=== PATIENT | female | born 1950 | race Caucasian/White ===

== ENCOUNTER 2020-10-07 12:53 | Inpatient (IN) | payer MEDICARE, SELFPAY ==
[2020-10-07] VITALS (61 sets, daily range): BP systolic 69–134; BP diastolic 48–100; PULSE 44–122; RESP 14–18; TEMP 36.3; O2SAT 92–100; BMI 21.2
--- NOTE | 2020-10-07 12:57 | CT_ITS ---
WS: [id number] CT HEAD NONCONTRAST HISTORY: HEADACHE TECHNIQUE: Contiguous axial imaging performed through the brain in 2.5 mm imaging. Bone and soft tiss ue windows. Sagittal and coronal reformats reviewed. All CT scans at [facility] use at le ast one of these dose optimization techniques: automated exposure control; mA and/or kV adjustment pe r patient size (includes targeted exams where dose is matched to clinical indication); or iterative r econstruction. DLP: 1144.36 mGy.cm COMPARISON: None available. No acute intracranial hemorrhage, midline shift or mass effect. Moderate atrophy is symmetric. Mild chronic microvascular ischemic disease. No sulcal effacement or m idline shift. Quality of this examination is limited by positioning of the patient. Ventricles: Normal size with no hydrocephalus. Patient is intubated. Paranasal sinuses: As visualized are clear. Mastoid air cells: Well pneumatized. Calvarium and scalp: Skull is intact with no soft tissue edema or swelling. CT/CT head wo con* [id number] IMPRESSION: 1. Quality of this examination is limited by positioning of the patient. 2. No acute intracranial hemorrhage or edema. 3. Atrophy and mild chronic ischemic disease.
--- NOTE | 2020-10-07 12:57 | XRR_ITS ---
PROCEDURE INFORMATION: Exam: XR Chest Exam date and time: 10/07/2020 12:57 PM Age: 69 years old Clinical indication: Cough TECHNIQUE: Imaging protocol: XR of the chest. Views: 1 view. COMPARISON: CR Chest 1 [place] [id number] 06/14/2017 5:35 PM FINDINGS: Tubes, catheters and devices: Endotracheal tube is 27 mm above the princess. NG tube extends into the stomach. Lungs: Parenchymal densities are now seen in the right mid and lower lobe a representing a change since prior examination. These findings measure 43 mm x 33 mm and 52 mm x 41 mm respectively. The specific etiology of these findings is uncertain. A smaller density was present in the right lung on prior study. Chest CT examination is recommended to clarify this finding. The potential for a lung mass lesion is suggested. There is vascular congestion present in the left hilum. Pleural spaces: Unremarkable. No pleural effusion. No pneumothorax. Heart/Mediastinum: Unremarkable. No cardiomegaly. Bones/joints: There is lumbar spine osteopenia with kyphoplasty at multiple levels. These findings are stable since prior XR/XR chest 1V portable [id number] IMPRESSION: 1. Large right mid and lower lobe parenchymal densities possible lung mass. chest CT exam recommended 2. Left hilar vascular congestion is seen. 3. NG tube is in the stomach. 4. Endotracheal tube is above the princess. 5. Lumbar spine osteopenia and kyphoplasty at multiple levels
--- NOTE | 2020-10-07 12:58 | ECG_ITS ---
[facility] Test Date: 2020-10-07 Pat Name: Sue Edwards Department: Room: Gender: Female Cardio Clinician: : [id number] Requested By: Curry Thorne Order Number: [id number] Reading MD: WILL BALLESTEROS Measurements Intervals Edgar Rate: 104 P: 66 FL: 120 QRS: 95 QRSD: 123 T: -42 QT: 356 QTc: 470 Interpretive Statements SINUS TACHYCARDIA WITH OCCASIONAL SUPRAVENTRICULAR PREMATURE COMPLEXES BORDERLINE RIGHT AXIS DEVIATION [QRS AXIS > 90] POSSIBLE RIGHT VENTRICULAR CONDUCTION DELAY [RSR (QR) IN V1/V2] ABNORMAL QRS-T ANGLE [QRS-T AXIS DIFFERENCE > 60] Compared to ECG 06/14/2017 19:36:58 Sinus rhythm no longer present Electronically Signed On 10-07-2020 20:12:12 CDT by WILL BALLESTEROS [email or web address]
--- NOTE | 2020-10-07 12:59 | W.ED.GENADLT ---
HPI - General Adult General: Chief complaint: Altered Mental Status Stated complaint: RESP DISTRESS Time Seen by Provider: 10/07/20 12:57 History of Present Illness: HPI narrative: This patient is a 69-year-old female presents to the emergency department for unresponsiveness. EMS was called to the scene last known well time was 10 AM. Patient does have a history of COPD. went to the store and came back found the patient had agonal respirations. EMS was called to the scene patient had pulse ox in the low 80s. Patient unresponsive with pinpoint pupils and appeared to be leaning to the left. Patient was intubated by EMS in the field patient was given rapid sequence intubation medications. Breath sounds are now equal bilaterally. Patient does have a pulse ox of 99%. No other history known. Patient is a full code according to the patient's family. Patient does have a history of COPD as stated above and did lose a lower extremity due to cat scratch fever. Otherwise patient has unknown medications at home but does not have a history of any drug abuse. Will do medical evaluation treat as needed Associated symptoms: Deny chest pain, dyspnea, headache(s), nausea, rash, palpitations or vomiting Review of Systems General: Reports: ROS unobtainable due to endotracheal tube, ROS unobtainable due to medical condition and ROS unobtainable due to mental status Const: Denies: fever(s), chills, body aches or fatigue Eyes: Denies: change in vision or blurry vision ENMT: Denies: throat pain, hoarseness or mouth pain Card: Denies: chest pain, palpitations, irregular heart rhythm, edema, swelling of feet/ankles or lightheadedness Resp: Denies: dyspnea, productive cough, non-productive cough, wheezing or pain on inspiration GI: Denies: abdominal pain, nausea or vomiting : Denies: flank pain, difficulty voiding, dysuria, urinary frequency, urinary urgency or urinary hesitancy Musc: Denies: neck pain, back pain, extremity pain, extremity swelling, joint pain, joint swelling, joint redness, joint warmth or limited range of motion Skin/Breast: Denies: rash, pruritus, erythema or skin tenderness Neuro: Denies: headache(s), numbness in extremities or weakness in extremities Psych: Denies: anxiety or depression Physical Exam Const: COMMON NORMALS: no acute distress, average body habitus and no limitations EXAM LIMITATIONS: other limitations (Patient intubated in the field by EMS) GENERAL APPEARANCE: frail appearing NUTRITIONAL APPEARANCE: cachectic ORIENTATION/CONSCIOUSNESS: Yes Other orientation findings (Patient unresponsive) HENMT: COMMON NORMALS: normocephalic, atraumatic, hearing grossly normal bilaterally, external ears normal, EAC's normal, TM's normal bilaterally, Normal external nose present, Normal nasal mucous membranes and turbinates present, moist oral mucous membranes, oropharynx normal, dentition normal and gingiva normal HEAD & SCALP: normocephalic and atraumatic NOSE: Normal external nose present and Normal nasal mucous membranes and turbinates present EXTERNAL EAR: Yes external ears normal EXTERNAL AUDITORY CANAL: EAC's normal TYMPANIC MEMBRANE: TM's normal bilaterally Neck/C-Spine: COMMON NORMALS: full ROM, no lymphadenopathy, supple, no JVD, Thyroid normal and No carotid bruits THYROID: Thyroid normal Chest: COMMONS NORMALS: normal inspection of the chest, normal palpation of entire chest wall, normal inspection of the breasts and normal palpation of the breasts Breast/axilla inspection: Yes normal inspection of the breasts BREAST/AXILLA PALPATION: Yes normal palpation of the breasts Resp: COMMON NORMALS: normal respiratory effort, No retractions, No use of accessory muscles, clear to auscultation bilaterally and percussion normal AUSCULTATION: clear to auscultation bilaterally PERCUSSION: percussion normal Cardio: COMMON NORMALS: no JVD, regular rate, regular rhythm, S1 normal heart sound present, S2 normal heart sound present, No gallops present (Cardio), No clicks present (Cardio), No murmurs present (Cardio), No rub (Cardio) and Peripheral pulses 2+ throughout RATE: regular rate RHYTHM: regular rhythm HEART SOUNDS: S1 normal heart sound present and S2 normal heart sound present PERIPHERAL PULSES: Peripheral pulses 2+ throughout GI: COMMON NORMALS: Normal to inspection, nondistended, normoactive bowel sounds present, Soft to palpation, non-tender, No hepatosplenomegaly present, no masses and no bruits PALPATION: Yes Soft to palpation and Yes No hepatosplenomegaly present Back/Pelvis: COMMON NORMALS: thoracic and lumbar spine normal to inspection, no thoracic nor lumbar tenderness, thoraco-lumbar ROM normal and straight leg raise negative bilaterally Extremity: COMMON NORMALS: normal to inspection, full ROM, capillary refill normal, no joint enlargement, no clubbing, cyanosis or edema, no calf tenderness and no pedal edema Neuro: LOKI COMA SCALE: GCS not evaluated (Patient was given etomidate and VAC and intubated by EMS in the field unable to assess neurological status.) Course Reevaluation(s): Reevaluation #1: I did discuss at length with patient and family about findings. Patient is intubated. Patient does have a small pneumothorax on the right and multiple lung masses. History of COPD. History of smoking. CT of the brain negative for any acute findings. They state understanding patient be admitted to the ICU Time: 15:37 Consultations: Consultation #1: I did discuss at length with patient about patient with respiratory. They will adjust ventilator settings to decrease tidal volume PEEP and respiratory rate due to patient's pneumothorax. Time: 15:43 Consultation #2: I did discuss leg with Dr. Feng hospitalist who is accepted this patient for admission to the ICU. Time: 15:45 Consultation #3: Discussed at length with pulmonology Dr. Land he is agreed to be consulted on this patient. Time: 15:46 Additional Consultation(s): Discussed at length with Dr. Rousseau and [facility] cardiology he will consult on this patient. No heparin at this time Vital Signs: Vital signs: Vital Signs Pulse Rate 93 10/07/20 15:00 Respiratory Rate 16 10/07/20 15:39 Blood Pressure 99/64 10/07/20 15:00 Pulse Oximetry 98 10/07/20 15:00 MDM - General Adult MDM Narrative: Medical decision making narrative: This patient is a 69-year-old female presents to the emergency department for unresponsiveness. EMS was called to the scene last known well time was 10 AM. Patient does have a history of COPD. went to the store and came back found the patient had agonal respirations. EMS was called to the scene patient had pulse ox in the low 80s. Patient unresponsive with pinpoint pupils and appeared to be leaning to the left. Patient was intubated by EMS in the field patient was given rapid sequence intubation medications. Breath sounds are now equal bilaterally. Patient does have a pulse ox of 99%. No other history known. Patient is a full code according to the patient's family. Patient does have a history of COPD as stated above and did lose a lower extremity due to cat scratch fever. Otherwise patient has unknown medications at home but does not have a history of any drug abuse. I did discuss at length with patient and family about findings. Patient is intubated. Patient does have a small pneumothorax on the right and multiple lung masses. History of COPD. History of smoking. CT of the brain negative for any acute findings. They state understanding patient be admitted to the ICU I did discuss at length with patient about patient with respiratory. They will adjust ventilator settings to decrease tidal volume PEEP and respiratory rate due to patient's pneumothorax. I did discuss leg with Dr. Feng hospitalist who is accepted this patient for admission to the ICU. Discussed at length with pulmonology Dr. Land he is agreed to be consulted on this patient. Discussed at length with Dr. Rousseau and [facility] cardiology he will consult on this patient. No heparin at this time Lab Data: Labs: Lab Results 10/07/20 10/07/20 10/07/20 Range/Units 13:00 13:00 13:00 WBC 9.7 (4.0-10.0) 10^3/ uL RBC 5.15 (4.1-5.3) 10^6/u L Hgb 14.5 (11.5-15.3) g/dL Hct 49.6 H (37.0-47.0) % MCV 96.3 (81-99) fL MCH 28.2 (28.0-34.0) pg MCHC 29.2 L (30.0-36.0) g/dL RDW 14.9 (12.1-15.1) % Plt Count 245 (130-400) 10^3/c mm MPV 11.5 H (7.4-10.4) fL Neut % (Auto) 79.7 % Lymph % (Auto) 12.1 % [place] % (Auto) 4.9 % Eos % (Auto) 1.8 % Baso % (Auto) 0.8 % Neut # (Auto) 7.71 H (1.8-7.7) 10^3/u L Lymph # (Auto) 1.2 (0.8-4.8) 10^3/u L [place] # (Auto) 0.5 (0.2-0.9) 10^3/u L Eos # (Auto) 0.2 (0.0-0.8) 10^3/u L Baso # (Auto) 0.1 (0.0-0.1) 10^3/u L Nucleated RBC % (a uto) 0 % Nucleated RBCs # 0.0 /100WBC PT 14.80 (12.1-14.9) SECO NDS INR 1.13 (0.8-1.2) APTT 33.0 (23.9-36.7) SECO NDS Specimen Type Sample Site ABG pH (7.35-7.45) ABG pCO2 (35-45) mmHg ABG pO2 (80.0-100.0) mmH g ABG HCO3 (22-26) mmol/L ABG O2 Saturation ABG Base Excess (-2.0-2.0) mmol/ L Keith Test A-a O2 Gradient (5-10) mmHg Hematocrit (37-47) % Hgb O2 Saturation (95-100) % Carboxyhemoglobin (0.4-20.1) %THgb Methemoglobin (0.4-1.5) % Total Hemoglobin (12-16) g/dL Ionized Calcium (1.1-1.4) mmol/L O2 Delivery Device Mechanical Rate FiO2 % Tidal Volume PEEP cmH20 Floating [employer] Gang Supervisor ID Sodium 139 (136-145) mmol/L Potassium 4.8 (3.5-5.1) mmol/L Chloride 100 (98-107) mmol/L Carbon Dioxide 24 (22-29) mmol/L Anion Gap 19.8 H (5-19) BUN 9 (8-23) mg/dL Creatinine 0.6 (0.5-0.9) mg/dL GFR Calculation 98.8 (90-130) mL/min Glucose 206 H (65-115) mg/dL Calculated Osmolal ity 293 (285-295) mOsm/k g Lactic Acid (0.5-2.2) mmol/L Calcium 8.9 (8.5-10.5) mg/dL Total Bilirubin 0.7 (0.15-1.2) mg/dL AST 79 H (0-32) U/L ALT 40 H (0-33) U/L Alkaline Phosphata se 122 H (35-105) IU/L Ammonia (11-51) umol/L Troponin T Baselin e (0-10) ng/L Troponin T 120 Min [place] (0-10) ng/L Delta Troponin T (0-10) ABS# NT-Pro-B Natriuret Pep 982 H (0-125) pg/mL Total Protein 6.3 L (6.6-8.7) g/dL Albumin 3.7 (3.5-5.2) g/dL Globulin 2.6 (1.3-4.6) g/dL Urine Color (Yellow) Urine Appearance (CLEAR) Urine pH (5-7) Ur Specific Gravit y (1.005-1.030) Urine Protein (Negative) Urine Glucose (UA) (Normal) Urine Ketones (Negative) Urine Blood (Negative) Urine Nitrate (Negative) Urine Bilirubin (Negative) Urine Urobilinogen (Negative) mg/dL Ur Leukocyte [place] ase (Negative) Urine RBC (0-2) /hpf Urine WBC (0-5) /hpf Ur Squamous Epith Cells (0-5) /hpf Amorphous Sediment /hpf Urine Bacteria (NONE) /hpf Urine Mucus /hpf Salicylates < 0.3 L (3-10) mg/dL Urine Opiates Scre en (Negative) ng/mL Ur Barbiturates Sc reen (Negative) ng/mL Ur Phencyclidine S crn (Negative) ng/mL Ur Amphetamines Sc reen (Negative) ng/mL U Benzodiazepines Scrn (Negative) ng/mL Urine Cocaine Scre en (Negative) ng/mL U Marijuana (THC) Screen (Negative) ng/mL Ethyl Alcohol < 10 (0-10) mg/dL SARS-CoV-2 Ag (Rap id) (Negative) 10/07/20 10/07/20 10/07/20 Range/Units 13:00 13:00 13:05 WBC (4.0-10.0) 10^3/ uL RBC (4.1-5.3) 10^6/u L Hgb (11.5-15.3) g/dL Hct (37.0-47.0) % MCV (81-99) fL MCH (28.0-34.0) pg MCHC (30.0-36.0) g/dL RDW (12.1-15.1) % Plt Count (130-400) 10^3/c mm MPV (7.4-10.4) fL Neut % (Auto) % Lymph % (Auto) % [place] % (Auto) % Eos % (Auto) % Baso % (Auto) % Neut # (Auto) (1.8-7.7) 10^3/u L Lymph # (Auto) (0.8-4.8) 10^3/u L [place] # (Auto) (0.2-0.9) 10^3/u L Eos # (Auto) (0.0-0.8) 10^3/u L Baso # (Auto) (0.0-0.1) 10^3/u L Nucleated RBC % (a uto) % Nucleated RBCs # /100WBC PT (12.1-14.9) SECO NDS INR (0.8-1.2) APTT (23.9-36.7) SECO NDS Specimen Type Arterial Sample Site Radial, left ABG pH 7.14 L* (7.35-7.45) ABG pCO2 63.9 H* (35-45) mmHg ABG pO2 487.0 H (80.0-100.0) mmH g ABG HCO3 21.8 L (22-26) mmol/L ABG O2 Saturation 99.9 ABG Base Excess -8.2 L (-2.0-2.0) mmol/ L Keith Test Pos A-a O2 Gradient 18.5 H (5-10) mmHg Hematocrit 43.5 (37-47) % Hgb O2 Saturation 96.8 (95-100) % Carboxyhemoglobin 2.1 (0.4-20.1) %THgb Methemoglobin 1.0 (0.4-1.5) % Total Hemoglobin 14.2 (12-16) g/dL Ionized Calcium 1.2 (1.1-1.4) mmol/L O2 Delivery Device Vent Mechanical Rate 15.0 FiO2 100.0 % Tidal Volume 0.40 PEEP 6.0 cmH20 Floating [employer] Gang Supervisor ID Gd Sodium 138.0 (136-145) mmol/L Potassium 3.4 L (3.5-5.1) mmol/L Chloride (98-107) mmol/L Carbon Dioxide (22-29) mmol/L Anion Gap (5-19) BUN (8-23) mg/dL Creatinine (0.5-0.9) mg/dL GFR Calculation (90-130) mL/min Glucose 165.0 H (65-115) mg/dL Calculated Osmolal ity (285-295) mOsm/k g Lactic Acid (0.5-2.2) mmol/L Calcium (8.5-10.5) mg/dL Total Bilirubin (0.15-1.2) mg/dL AST (0-32) U/L ALT (0-33) U/L Alkaline Phosphata se (35-105) IU/L Ammonia 54 H (11-51) umol/L Troponin T Baselin e 39 H (0-10) ng/L Troponin T 120 Min [place] (0-10) ng/L Delta Troponin T (0-10) ABS# NT-Pro-B Natriuret Pep (0-125) pg/mL Total Protein (6.6-8.7) g/dL Albumin (3.5-5.2) g/dL Globulin (1.3-4.6) g/dL Urine Color (Yellow) Urine Appearance (CLEAR) Urine pH (5-7) Ur Specific Gravit y (1.005-1.030) Urine Protein (Negative) Urine Glucose (UA) (Normal) Urine Ketones (Negative) Urine Blood (Negative) Urine Nitrate (Negative) Urine Bilirubin (Negative) Urine Urobilinogen (Negative) mg/dL Ur Leukocyte [place]asha[place] ase (Negative) Urine RBC (0-2) /hpf Urine WBC (0-5) /hpf Ur Squamous Epith Cells (0-5) /hpf Amorphous Sediment /hpf Urine Bacteria (NONE) /hpf Urine Mucus /hpf Salicylates (3-10) mg/dL Urine Opiates Scre en (Negative) ng/mL Ur Barbiturates Sc reen (Negative) ng/mL Ur Phencyclidine S crn (Negative) ng/mL Ur Amphetamines Sc reen (Negative) ng/mL U Benzodiazepines Scrn (Negative) ng/mL Urine Cocaine Scre en (Negative) ng/mL U Marijuana (THC) Screen (Negative) ng/mL Ethyl Alcohol (0-10) mg/dL SARS-CoV-2 Ag (Rap id) (Negative) 10/07/20 10/07/20 10/07/20 Range/Units 13:21 13:21 13:21 WBC (4.0-10.0) 10^3/ uL RBC (4.1-5.3) 10^6/u L Hgb (11.5-15.3) g/dL Hct (37.0-47.0) % MCV (81-99) fL MCH (28.0-34.0) pg MCHC (30.0-36.0) g/dL RDW (12.1-15.1) % Plt Count (130-400) 10^3/c mm MPV (7.4-10.4) fL Neut % (Auto) % Lymph % (Auto) % [place] % (Auto) % Eos % (Auto) % Baso % (Auto) % Neut # (Auto) (1.8-7.7) 10^3/u L Lymph # (Auto) (0.8-4.8) 10^3/u L [place] # (Auto) (0.2-0.9) 10^3/u L Eos # (Auto) (0.0-0.8) 10^3/u L Baso # (Auto) (0.0-0.1) 10^3/u L Nucleated RBC % (a uto) % Nucleated RBCs # /100WBC PT (12.1-14.9) SECO NDS INR (0.8-1.2) APTT (23.9-36.7) SECO NDS Specimen Type Sample Site ABG pH (7.35-7.45) ABG pCO2 (35-45) mmHg ABG pO2 (80.0-100.0) mmH g ABG HCO3 (22-26) mmol/L ABG O2 Saturation ABG Base Excess (-2.0-2.0) mmol/ L Keith Test A-a O2 Gradient (5-10) mmHg Hematocrit (37-47) % Hgb O2 Saturation (95-100) % Carboxyhemoglobin (0.4-20.1) %THgb Methemoglobin (0.4-1.5) % Total Hemoglobin (12-16) g/dL Ionized Calcium (1.1-1.4) mmol/L O2 Delivery Device Mechanical Rate FiO2 % Tidal Volume PEEP cmH20 Floating [employer] Gang Supervisor ID Sodium (136-145) mmol/L Potassium (3.5-5.1) mmol/L Chloride (98-107) mmol/L Carbon Dioxide (22-29) mmol/L Anion Gap (5-19) BUN (8-23) mg/dL Creatinine (0.5-0.9) mg/dL GFR Calculation (90-130) mL/min Glucose (65-115) mg/dL Calculated Osmolal ity (285-295) mOsm/k g Lactic Acid (0.5-2.2) mmol/L Calcium (8.5-10.5) mg/dL Total Bilirubin (0.15-1.2) mg/dL AST (0-32) U/L ALT (0-33) U/L Alkaline Phosphata se (35-105) IU/L Ammonia (11-51) umol/L Troponin T Baselin e (0-10) ng/L Troponin T 120 Min [place] (0-10) ng/L Delta Troponin T (0-10) ABS# NT-Pro-B Natriuret Pep (0-125) pg/mL Total Protein (6.6-8.7) g/dL Albumin (3.5-5.2) g/dL Globulin (1.3-4.6) g/dL Urine Color Yellow (Yellow) Urine Appearance Sl hazy (CLEAR) Urine pH 5 (5-7) Ur Specific Gravit y 1.020 (1.005-1.030) Urine Protein Neg (Negative) Urine Glucose (UA) Norm (Normal) Urine Ketones Negative (Negative) Urine Blood Neg (Negative) Urine Nitrate Negative (Negative) Urine Bilirubin Neg (Negative) Urine Urobilinogen Norm (Negative) mg/dL Ur Leukocyte Lasha[place] ase Negative (Negative) Urine RBC None (0-2) /hpf Urine WBC 0-4 H (0-5) /hpf Ur Squamous Epith Cells 0-4 H (0-5) /hpf Amorphous Sediment 1+ /hpf Urine Bacteria 1+ H (NONE) /hpf Urine Mucus Trace /hpf Salicylates (3-10) mg/dL Urine Opiates Scre en Negative (Negative) ng/mL Ur Barbiturates Sc reen Negative (Negative) ng/mL Ur Phencyclidine S crn Negative (Negative) ng/mL Ur Amphetamines Sc reen Negative (Negative) ng/mL U Benzodiazepines Scrn Negative (Negative) ng/mL Urine Cocaine Scre en Negative (Negative) ng/mL U Marijuana (THC) Screen Negative (Negative) ng/mL Ethyl Alcohol (0-10) mg/dL SARS-CoV-2 Ag (Rap id) Negative (Negative) 10/07/20 10/07/20 Range/Units 13:30 15:00 WBC (4.0-10.0) 10^3/ uL RBC (4.1-5.3) 10^6/u L Hgb (11.5-15.3) g/dL Hct (37.0-47.0) % MCV (81-99) fL MCH (28.0-34.0) pg MCHC (30.0-36.0) g/dL RDW (12.1-15.1) % Plt Count (130-400) 10^3/c mm MPV (7.4-10.4) fL Neut % (Auto) % Lymph % (Auto) % [place] % (Auto) % Eos % (Auto) % Baso % (Auto) % Neut # (Auto) (1.8-7.7) 10^3/u L Lymph # (Auto) (0.8-4.8) 10^3/u L [place] # (Auto) (0.2-0.9) 10^3/u L Eos # (Auto) (0.0-0.8) 10^3/u L Baso # (Auto) (0.0-0.1) 10^3/u L Nucleated RBC % (a uto) % Nucleated RBCs # /100WBC PT (12.1-14.9) SECO NDS INR (0.8-1.2) APTT (23.9-36.7) SECO NDS Specimen Type Sample Site ABG pH (7.35-7.45) ABG pCO2 (35-45) mmHg ABG pO2 (80.0-100.0) mmH g ABG HCO3 (22-26) mmol/L ABG O2 Saturation ABG Base Excess (-2.0-2.0) mmol/ L Keith Test A-a O2 Gradient (5-10) mmHg Hematocrit (37-47) % Hgb O2 Saturation (95-100) % Carboxyhemoglobin (0.4-20.1) %THgb Methemoglobin (0.4-1.5) % Total Hemoglobin (12-16) g/dL Ionized Calcium (1.1-1.4) mmol/L O2 Delivery Device Mechanical Rate FiO2 % Tidal Volume PEEP cmH20 Floating Labor Gang Supervisor ID Sodium (136-145) mmol/L Potassium (3.5-5.1) mmol/L Chloride (98-107) mmol/L Carbon Dioxide (22-29) mmol/L Anion Gap (5-19) BUN (8-23) mg/dL Creatinine (0.5-0.9) mg/dL GFR Calculation (90-130) mL/min Glucose (65-115) mg/dL Calculated Osmolal ity (285-295) mOsm/k g Lactic Acid 5.0 H* (0.5-2.2) mmol/L Calcium (8.5-10.5) mg/dL Total Bilirubin (0.15-1.2) mg/dL AST (0-32) U/L ALT (0-33) U/L Alkaline Phosphata se (35-105) IU/L Ammonia (11-51) umol/L Troponin T Baselin e (0-10) ng/L Troponin T 120 Min [place] 56.07 H (0-10) ng/L Delta Troponin T 17.07 H* (0-10) ABS# NT-Pro-B Natriuret Pep (0-125) pg/mL Total Protein (6.6-8.7) g/dL Albumin (3.5-5.2) g/dL Globulin (1.3-4.6) g/dL Urine Color (Yellow) Urine Appearance (CLEAR) Urine pH (5-7) Ur Specific Gravit y (1.005-1.030) Urine Protein (Negative) Urine Glucose (UA) (Normal) Urine Ketones (Negative) Urine Blood (Negative) Urine Nitrate (Negative) Urine Bilirubin (Negative) Urine Urobilinogen (Negative) mg/dL Ur Leukocyte [place]asha[place] ase (Negative) Urine RBC (0-2) /hpf Urine WBC (0-5) /hpf Ur Squamous Epith Cells (0-5) /hpf Amorphous Sediment /hpf Urine Bacteria (NONE) /hpf Urine Mucus /hpf Salicylates (3-10) mg/dL Urine Opiates Scre en (Negative) ng/mL Ur Barbiturates Sc reen (Negative) ng/mL Ur Phencyclidine S crn (Negative) ng/mL Ur Amphetamines Sc reen (Negative) ng/mL U Benzodiazepines Scrn (Negative) ng/mL Urine Cocaine Scre en (Negative) ng/mL U Marijuana (THC) Screen (Negative) ng/mL Ethyl Alcohol (0-10) mg/dL SARS-CoV-2 Ag (Rap id) (Negative) Imaging Data^: CXR: Attestation: I personally reviewed and interpreted this imaging study as follows: Radiologist's impression: IMPRESSION: 1. Large right mid and lower lobe parenchymal densities possible lung mass. chest CT exam recommended 2. Left hilar vascular congestion is seen. 3. NG tube is in the stomach. 4. Endotracheal tube is above the princess. 5. Lumbar spine osteopenia and kyphoplasty at multiple levels CT Head: Attestation: I personally reviewed and interpreted this imaging study as follows: Radiologist's impression: IMPRESSION: 1. Quality of this examination is limited by positioning of the patient. 2. No acute intracranial hemorrhage or edema. 3. Atrophy and mild chronic ischemic disease. CT Chest: Attestation: I personally reviewed and interpreted this imaging study as follows: Radiologist's impression: IMPRESSION: 1. Multi lobar pulmonary masses and nodules. The largest mass in the RIGHT lower lobe measures 5.5 x 4.8 cm. Metastatic disease versus primary lung cancer with metastatic disease. 2. Small RIGHT pneumothorax, 10%. 3. Severe emphysema. 4. Nasogastric and endotracheal tubes in good position. 5. Numerous osteoporotic compression fractures in the thoracic and lumbar spine. 6. Moderate atherosclerosis of the aorta. 7. Marked cachexia. EKG Data^: EKG 1: Attestation: I personally reviewed and interpreted this EKG as follows: EKG interpretation date: 10/07/20 EKG interpretation time: 13:05 Prior EKG tracings: not available for review Interpretation: Sinus tachycardia with an occasional PVC heart rate 104 abnormal EKG Computer generated interpretation: Chest X-Ray 10/07/20 12:57 IMPRESSION: 1. Large right mid and lower lobe parenchymal densities possible lung mass. chest CT exam recommended 2. Left hilar vascular congestion is seen. 3. NG tube is in the stomach. 4. Endotracheal tube is above the princess. 5. Lumbar spine osteopenia and kyphoplasty at multiple levels Head CT 10/07/20 12:57 IMPRESSION: 1. Quality of this examination is limited by positioning of the patient. 2. No acute intracranial hemorrhage or edema. 3. Atrophy and mild chronic ischemic disease. Chest CT 10/07/20 13:35 IMPRESSION: 1. Multi lobar pulmonary masses and nodules. The largest mass in the RIGHT lower lobe measures 5.5 x 4.8 cm. Metastatic disease versus primary lung cancer with metastatic disease. 2. Small RIGHT pneumothorax, 10%. 3. Severe emphysema. 4. Nasogastric and endotracheal tubes in good position. 5. Numerous osteoporotic compression fractures in the thoracic and lumbar spine. 6. Moderate atherosclerosis of the aorta. 7. Marked cachexia. Notified Curry Thorne MD at 10/07/2020 3:26 PM. ABG Data^: ABG Interpretation 1: ABG results: 10/07/20 13:05 ABG pH 7.14 L* ABG pCO2 63.9 H* ABG pO2 487.0 H ABG HCO3 21.8 L ABG O2 Saturation 99.9 ABG Base Excess -8.2 L Attestation: I personally reviewed and interpreted this ABG as follows: Interpretation: Respiratory acidosis. Critical Care Time Critical Care Time: Critical Care Time: Yes Total Critical Care Time: 90 Attestation: Critical care in ED Discharge Plan Discharge Patient Disposition: Admitted As Inpatient Clinical Impression: Altered mental status, Acute respiratory failure, Metastatic primary lung cancer, Mass of lung, Pneumothorax on right, Elevated LDH, Elevated troponin Condition: Stable Coding Level of Care Code ED Director Statistical Programming for Chg Fwd Exam Comprehensive
--- NOTE | 2020-10-07 13:04 | PC.PHAR ---
PT UNABLE TO CONFIRM MEDICATION DUE TO INTUBATION. I SPOKE WITH PT'S WHO CONFIRMED THAT THE PT DOESN'T TAKE ANY PRESCRIPTIONS, NOR DOES SHE TAKE ANYTHING OVER THE COUNTER.
[2020-10-07 13:08] LABS: Basophils # 0.1 10^3/uL (0.0-0.1); Basophils % 0.8 %; Eosinophils # 0.2 10^3/uL (0.0-0.8); Eosinophils % 1.8 %; Hematocrit 49.6 % (37.0-47.0); Hemoglobin 14.5 g/dL (11.5-15.3); Lymphocytes # 1.2 10^3/uL (0.8-4.8); Lymphocytes % 12.1 %; Mean Corpuscular HGB Conc 29.2 g/dL (30.0-36.0); Mean Corpuscular Hemoglobin 28.2 pg (28.0-34.0); Mean Corpuscular Volume 96.3 fL (81-99); Mean Platelet Volume 11.5 fL (7.4-10.4); Monocytes # 0.5 10^3/uL (0.2-0.9); Monocytes % 4.9 %; Neutrophils # 7.71 10^3/uL (1.8-7.7); Neutrophils % 79.7 %; Nucleated Red Blood Cells % 0 %; Platelet Count 245 10^3/cmm (130-400); Red Blood Count 5.15 10^6/uL (4.1-5.3); Red Cell Distribution Width 14.9 % (12.1-15.1); White Blood Count 9.7 10^3/uL (4.0-10.0)
[2020-10-07 13:22] LABS: Arterial Blood Gas Hematocrit 43.5 % (37-47); Base Excess ABG -8.2 mmol/L (-2.0-2.0); Blood Gas Allen Test Pos; Blood Gas Operator Identificat GD; Blood Gas Sample Site Radial, left; Blood Gas Sample Type Arterial; Carboxyhemoglobin 2.1 %THgb (0.4-20.1); HCO3 ABG 21.8 mmol/L (22-26); HGB O2 Sat 96.8 % (95-100); Ionized Calcium Level - ABG 1.2 mmol/L (1.1-1.4); Oxygen Saturation ABG 99.9; Potassium Level - ABG 3.4 mmol/L (3.5-5.0); Total Hemoglobin 14.2 g/dL (12-16)
[2020-10-07 13:23] LABS: Alveolar-Arterial Oxygen Gradi 18.5 mmHg (5-10); Oxygen Device VENT
[2020-10-07 13:24] LABS: ABG PCO2 63.9 mmHg (35-45); ABG PH Result 7.14 (7.35-7.45)
[2020-10-07 13:25] LABS: INR 1.13 (0.8-1.2)
[2020-10-07 13:30] LABS: Troponin(5th) Baseline 39 ng/L (0-10)
[2020-10-07 13:31] LABS: Ammonia 54 umol/L (11-51)
--- NOTE | 2020-10-07 13:35 | CT_ITS ---
WS: [id number] CT CHEST WITH INTRAVENOUS CONTRAST HISTORY: Mass TECHNIQUE: Contiguous 5 mm axial imaging performed on the thorax. Coronal and sagittal reformats are submitted. All CT scans at [facility] use at least one of these dose optimization techniq ues: automated exposure control; mA and/or kV adjustment per patient size (includes targeted exams wh ere dose is matched to clinical indication); or iterative reconstruction. CONTRAST: Omnipaque 300; 95 mL IV. DLP: 318.75 mGy.cm COMPARISON: 12/19/2015 and chest radiograph 10/07/2020 Lungs and central airway: Severe pulmonary hyperexpansion and emphysema. Multi lobar pulmonary nodule s and masses. The largest mass with irregular shaped in the RIGHT lower lobe adjacent to the fissure measuring 5.5 x 4.8 cm. Masses and nodules in the RIGHT upper lobe. There is an additional large mass in the LEFT lower lobe abutting the pleura measuring 4.1 x 3.2 cm. There are additional satellite no dules. There are additional subcentimeter nodules scattered throughout the lungs. There is a low-atte nuation mass posterior to the LEFT lower lobe pulmonary vein. This mass measures 2.1 x 2.4 cm and may be a cyst. New since 12/19/2015. Pleura: No significant pleural effusion. There is a small RIGHT pneumothorax. Heart and pericardium: Extensive coronary artery calcifications. No pericardial effusion. Mediastinum and carlos enrique: Nasogastric tube and endotracheal tubes are noted in good positions. RIGHT carlos enrique r lymph node measures 8 mm. There is additional lymphoid tissue extending along the RIGHT lower lobe pulmonary artery. Vessels: Moderate atherosclerosis aorta with no aneurysm. Normal size pulmonary artery. Chest wall and lower neck: Endotracheal tube in good position. NG tube is also present. Upper abdomen: Mild aneurysmal dilatation superior abdominal aorta. Patient is very cachectic. Osseous structures: Osteopenia. Extensive thoracic spine osteoporotic compression fractures. Addition al vertebroplasties in the lumbar spine. CT/CT chest w con* [id number] IMPRESSION: 1. Multi lobar pulmonary masses and nodules. The largest mass in the RIGHT low er lobe measures 5.5 x 4.8 cm. Metastatic disease versus primary lung cancer wi th metastatic disease. 2. Small RIGHT pneumothorax, 10%. 3. Severe emphysema. 4. Nasogastric and endotracheal tubes in good position. 5. Numerous osteoporotic compression fractures in the thoracic and lumbar spin e. 6. Moderate atherosclerosis of the aorta. 7. Marked cachexia. Notified Curry Thorne MD at 10/07/2020 3:26 PM.
[2020-10-07 13:40] LABS: Alanine Aminotransferase 40 U/L (0-33); Albumin Level 3.7 g/dL (3.5-5.2); Alkaline Phosphatase 122 IU/L (35-105); Blood Urea Nitrogen 9 mg/dL (8-23); Calcium 8.9 mg/dL (8.5-10.5); Carbon Dioxide 24 mmol/L (22-29); Chloride 100 mmol/L (98-107); Creatinine Clr Calc Pharmacy 54.9677; Globulin 2.6 g/dL (1.3-4.6); Glomerular Filtration Rate 98.8 mL/min (90-130); Glucose 206 mg/dL (65-115); NT Pro B Type Natriuretic Pept 982 pg/mL (0-125); Osmolality Calculated 293 mOsm/kg (285-295); Sodium 139 mmol/L (136-145); Total Bilirubin 0.7 mg/dL (0.15-1.2); Total Protein 6.3 g/dL (6.6-8.7)
[2020-10-07 13:42] LABS: Alcohol Level < 10 mg/dL (0-10); Anion Gap 19.8 (5-19); Aspartate Amino Transferase 79 U/L (0-32); Potassium 4.8 mmol/L (3.5-5.1); Salicylate < 0.3 mg/dL (3-10)
[2020-10-07 14:04] LABS: Add Urine Microscopic? YES; Bilirubin Urine Neg (Negative); Blood Urine Neg (Negative); Glucose Urine UA Norm (Normal); Ketones Urine Negative (Negative); Leukocyte Esterase Urine Negative (Negative); Nitrate Urine Negative (Negative); Protein Urine Neg (Negative); Urine Appearance SL Hazy (CLEAR); Urine Color Yellow (Yellow); Urobilinogen Urine Norm (Negative); pH Urine 5 (5-7)
[2020-10-07 14:05] LABS: Amorphous Sediment Urine 1+ /hpf; Amphetamines Screen Urine Negative (Negative); Barbiturates Screen Urine Negative (Negative); Benzodiazepines Screen Urine Negative (Negative); Cocaine Screen Urine Negative (Negative); PCP Screen Urine Negative (Negative); THC Screen Urine Negative (Negative)
[2020-10-07 14:06] LABS: Add Urine Culture? No; Bacteria Urine 1+ /hpf; Mucus Urine TRACE /hpf; Squamous Epithelial Cell Urine 0-4 /hpf (0-5); WBC Urine 0-4 /hpf (0-5)
[2020-10-07 14:11] LABS: SARS Covid-2 Antigen Negative (Negative)
[2020-10-07 14:28] LABS: Opiate Screen Urine Negative (Negative)
--- NOTE | 2020-10-07 14:58 | ECG_ITS ---
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1950 Requested By: Curry Thorne Order Number: [id number] Celia MD: WILL BALLESTEROS Measurements Intervals [place] Rate: 96 P: 81 VT: 112 QRS: 95 QRSD: 88 T: 0 QT: 372 QTc: 472 Interpretive Statements SINUS RHYTHM WITH SHORT VT INTERVAL BORDERLINE RIGHT AXIS DEVIATION [QRS AXIS > 90] LOW QRS VOLTAGE IN EXTREMITY LEADS [QRS DEFLECTION < 0.5 mV IN LIMB LEADS] Compared to ECG 10/07/2020 13:05:59 Short VT interval now present Low QRS voltage now present Sinus tachycardia no longer present Electronically Signed On 10-07-2020 20:13:31 CDT by WILL BALLESTEROS [email or web address]
[2020-10-07] MEDS: iohexol 300 mg/mL 100 mL Btl IV (15:04)
[2020-10-07] MEDS: piperacillin-tazobactam 3.375 GM in sodium chloride 0.9% (plus) 50 ML IV (15:07)
[2020-10-07] MEDS: sodium chloride 0.9% 1,000 ML 999 ML IV ×4 (15:07→22:49)
[2020-10-07 15:31] LABS: Reflex Lactate Order REFLEX LACTIC ORDERD
[2020-10-07 15:37] LABS: Troponin 5 2HR 56.07 ng/L (0-10)
[2020-10-07 15:44] LABS: Troponin 5 2HR Delta 17.07 ABS# (0-10)
--- NOTE | 2020-10-07 15:44 | PC.NURSE ---
Call received from Maria Fernanda (medical laboratory technologist), 2hr troponin 56.07 delta of 17.[address] Thorne.
[2020-10-07] MEDS: vecuronium 10 mg SDV IVP (15:53)
[2020-10-07 16:06] LABS: Lactic Acid level (Lactate) 3.5 mmol/L (0.5-2.2)
--- NOTE | 2020-10-07 16:57 | P.HP_ITS ---
Providers/Chief Complaint Primary Care Provider: Christina Alexander MD Chief Complaint: RESP DISTRESS History of Present Illness Sue Edwards is a 69 year old female with history of COPD, PAD, osteoporosis, multiple vertebral procedures, smoking addiction, brought into ER intubated by EMS after found unresponsive with agonal breathing at home by her , last known well around 10 AM, where he was found to be hypoxic with saturations in the 80s on EMS arrival after her found her slumped over in the chair after coming back from a store. In ER noted obtunded, with transient low blood pressure 71/52, but with response to 2000 mL into fluid boluses with systolic blood pressure rise to 101. ABG 7.14/63 point 9/487/20 1.8 originally on 100% FiO2. Currently saturation in the high 90s on 50% FiO2, PEEP 5, RR 16. CBC n oted unremarkable. Lactic acidosis noted of 5, decreased to 3.5. CMP otherwise with noted transaminitis, AST 79, ALT 40, alk phos 122. Ammonia 54. Troponin noted 39 at baseline, 56.0 72 hours with positive delta 17. NT proBNP 982. Urinalysis with 0-4 WBC, 0-4 squamous epithelial cells, 1+ bacteria, negative nitrate or leukocyte Estrace. Urine drug screen with salicylates included negative. Rapid COVID-[address] head with no acute intracranial hemorrhage or edema. Atrophy and chronic ischemic changes. CT chest with lobar pulmonary masses and nodules, largest mass in the right lo wer lobe measuring 5.5 x 4.8 cm. Metastatic disease versus primary lung cancer with metastatic spread. Small right pneumothorax, 10%. Severe emphysema. Numerous osteoporotic compression fractures in thoracic and lumbar spine. Moderate atherosclerosis of aorta. Marked cachexia. She is intubated. not in the room during my evaluation. At this time could not be reached by phone. Review of Systems General: Reports: ROS unobtainable due to endotracheal tube Medications/Allergies Home Medications Medication Instructions Recorded Confirmed Last Taken Type No Known Home Medications 10/07/20 10/07/20 Unknown History Allergies Allergy/AdvReac Type Severity Reaction Status Date / Time tramadol [From Ultram] Allergy Unknown Verified 10/07/20 12:59 PFSH Acute PFSH: Medical History Chronic back pain COPD (chronic obstructive pulmonary disease) Depression DJD (degenerative joint disease) GERD (gastroesophageal reflux disease) Osteoporosis PVD (peripheral vascular disease) Smoking addiction Surgical History Femur fracture H/O vertebroplasty History of femoropopliteal bypass History of left below knee amputation History of tonsillectomy Family History (Updated 10/07/20 @ 17:19 by Alvarez Pritchett MD) Other CAD (coronary artery disease) Social History Smoking and tobacco status: current every day smoker Alcohol intake: unknown Substance/Drug Use: unknown Household members: spouse Marital status: Vitals/I&O/Wt Last Vital Signs Pulse 88 10/07/20 16:00 Resp 18 10/07/20 16:00 BP 71/52 10/07/20 16:00 Pulse Ox 98 10/07/20 16:00 10/07/20 10/07/20 10/07/20 06:59 14:59 22:59 Intake Total 1050 / 1050 Balance 1050 / 1050 Weight last 48 hrs Weight 54.431 kg Physical Exam Const: COMMON NORMALS: no acute distress NUTRITIONAL APPEARANCE: cachectic ORIENTATION/CONSCIOUSNESS: Yes patient obtunded OTHER: Intubated HENMT: COMMON NORMALS: oropharynx normal Neck/C-Spine: COMMON NORMALS: no JVD Resp: COMMON NORMALS: normal respiratory effort AUSCULTATION: diminished lung sounds Cardio: COMMON NORMALS: regular rhythm, S1 normal heart sound present, S2 normal heart sound present and No murmurs present (Cardio) JUGULAR VENOUS DIS TENTION: JVD RHYTHM: regular rhythm HEART SOUNDS: S1 normal heart sound present and S2 normal heart sound present GI: COMMON NORMALS: Normal to inspection, nondistended, normoactive bowel sounds present, Soft to palpation and non-tender PALPATION: Yes Soft to palpation Extremity: COMMON NORMALS: no joint enlargement and no pedal edema Neuro: COMMON NORMALS: patient oriented x3 and moves all extremities Skin: COMMON NORMALS: no rashes or lesions noted GENERAL SKIN EXAM: no rashes or lesions noted Urinary Catheter Management^: Mauro: Cath Placed During This Visit: yes Urinary Catheter Date of Insertion: 10/07/20 Urinary Catheter Time of Insertion: 13:45 Data : 10/07/20 13:00 10/07/20 13:00 A&P Assessment and plan (1) Acute respiratory failure: Appears to have multifactorial respiratory failure secondary to advanced COPD, advanced emphysema, and new metastatic lesions with either lung or other unknown primary. Appears to have small right pneumothorax, 10%. Intubated by EMS. At this time continues with mechanical ventilatory support. Noted quite severe lactic acidosis, unclear etiology, possibly secondary to respiratory failure, liver dysfunction secondary to metastatic disease? She cannot provide review of systems. We will additionally assess by CT abdomen pelvis. LA with improvement with ventilatory support, fluid challenge. Down to 3.5. COPD with exacerbation, diminished air entry, hypercapnic, respiratory acidosis. Solu-Medrol. Nebs. ET aspirate culture. Status: Acute (2) Acute encephalopathy: Suspected 2/2 respiratory failure/hypercapnia, however, other causes possible including seuzire/post-ictal state, although no obvious brain mets noted. Meds are unknown, although does not appear to have been taking much in the past. Hx chronic pain on opioids. Monitor mental status and for any seizure- like activity. Not known to have hisotry of cirrhosis, and significance of minimally elevated ammonia is unclear in setting of new liver changes, possibly metastatic disease. Status: Acute (3) Mass of lung: Appears to have either primary cancer with metastatic disease or metastatic disease in bilateral lungs. This appears to be new finding. Will need additional work-up depending on her condition and advanced care goals. Status: Acute (4) Pneumothorax on right: Discussed with ER physician, pulmonology, at this time will monitor. Repeat chest x-ray in several hours. Status: Acute (5) COPD (chronic obstructive pulmonary disease): COPD with acute exacerbation as above. Status: Acute (6) Elevated troponin: Complete troponin EKG series. Suspect is demand ischemia secondary to respiratory failure. Assess TTE. Appreciate cardiology assessment. Status: Acute Additional A&P Information Lactic acidosis: Suspected secondary to respiratory failure, hypoperfusion, low blood pressure on presentation which did respond to fluid boluses. Decreased from 5-3.5. Possible liver dysfunction secondary perhaps metastatic disease given metastatic cancer in the lungs. Assess by CT abdomen pelvis, noncontrast at this time due to concern with hypotension, may have sustained kidney injury, and with improving lactic acid suspicion for bowel ischemia, etc. would be lower. Cannot obtain ROS, has been not available at this time as well, but do not appear to have history of GI complaints. However, monitor for any changes, low threshold for additional elevation. Smoking addiction GERD Osteoporosis History of left BKA History of depression Other chronic medical problems noted. Attestations Medical Necessity Statement*: Admission of over 2 midnights is going to needed for assessment of management of acute respiratory failure, acute encephalopathy, new diagnosis of metastatic cancer in bilateral lungs, COPD suspicion of a lady with advanced COPD. Critical Care Time: In addition to noncritical issues 45 minutes critical care time spent on assessment of management of immediately life-threatening issues including respiratory failure, ventilator support, COPD exacerbation with hypercapnic respiratory acidosis,, metabolic acidosis with severe lactic acidosis, troponin elevation, discussed care with ER physician, pulmonary critical care. Coding Level of Care Code Acute [employer] for Chg Fwd Exam Comprehensive Diagnoses Acute respiratory failure J96.00 Acute encephalopathy G93.40 Mass of lung R91.8 Pneumothorax on right J93.9 COPD (chronic obstructive pulmonary disease) J44.9 Elevated troponin R77.8
--- NOTE | 2020-10-07 17:39 | CTR_ITS ---
PROCEDURE INFORMATION: Exam: CT Abdomen And Pelvis Without Contrast Exam date and time: 10/07/2020 5:39 PM Age: 69 years old Clinical indication: Abnormal findings; Abnormal lab test; Other: Lactic acidosis; Patient HX: PT found unresponsive - new dx lung CA w mets; Additional info: Metasatic cancer, lactic acidosis, transaminitis TECHNIQUE: Imaging protocol: Computed tomography of the abdomen and pelvis without contrast. Total images: 200 Radiation optimization: All CT scans at this facility use at least one of these dose optimization techniques: automated exposure control; mA and/or kV adjustment per patient size (includes targeted exams where dose is matched to clinical indication); or iterative reconstruction. COMPARISON: CT abdomen pelvis w con* [id number] 08/25/2015 11:34 PM RADIATION DOSE METRICS: Total DLP (mGy-cm): 910.11 FINDINGS: Tubes, catheters and devices: Nasogastric tube tip at the level of the body of the stomach. Pleural spaces: Tiny anterior right pneumothorax less than 5%. Limited assessment lung bases again reveals partial visualization of the lung carcinoma in the right lower lobe and metastatic satellite focus in the right middle lobe within the field of view. COPD/chronic bronchitis/emphysema. Small volume right pleural effusion. Scant volume left pleural effusion. Advanced coronary artery disease. Liver: No visible hepatic mass or cystic structure. No visible hepatic metastatic involvement. Gallbladder and bile ducts: Gallbladder not clearly identified and suspect status post cholecystectomy. Pancreas: Moderate pancreatic atrophy. No grossly visible pancreatic ductal ectasia. Spleen: Spleen unremarkable. Adrenal glands: Adrenal glands are not well visualized. What can be visualized appears grossly unremarkable. Kidneys and ureters: No hydronephrosis or perinephric fluid bilaterally. Contrast excretion from the kidneys from a previous CT chest examination. Stomach and bowel: Fecal impaction with constipation. Nonobstructive bowel pattern. No visible adynamic or reactive ileus. Mild rectal prolapse. Appendix: No visible evidence of appendicitis. Intraperitoneal space: Small volume intraperitoneal ascites. No visible pneumoperitoneum. Vasculature: The abdominal aorta is nonaneurysmal. Advanced arterial sclerotic disease. Lymph nodes: No grossly visible diffuse lymphadenopathy. Urinary bladder: Mauro catheter within a decompressed urinary bladder. Reproductive: Status post hysterectomy. Bones/joints: Previous vertebroplasties of L2, L3, L4, and L5. Severe osteoporosis. Compression wedge deformities of T11 and T12 age indeterminate. Facet arthrosis. Right hip compression screws and intramedullary ulises fixation. Mild scoliotic curvature of the spine. Soft tissues: Very small pocket of anterior abdominal wall soft tissue subcutaneous emphysema infraumbilical mid pelvis. Clinical significance indeterminate. Cachexia. Anasarca. Other findings: Limited diagnostic quality examination. CT/CT abdomen pelvis wo con [id number] IMPRESSION: 1. Tiny anterior right pneumothorax less than 5%. 2. Fecal impaction with constipation. 3. Small intraperitoneal ascites. 4. Small right pleural effusion scant left pleural effusion. 5. Partial visualization of the lung carcinoma previous a discussed on CT chest examination of 10/07/2020. 6. Cachexia. 7. Anasarca. 8. Other nonurgent, nonemergent, chronic, and age related findings as detailed in text above. Radiation Dose CTDIVOL = (mGy): DLP = 910.11 (mGy-cm)
[2020-10-07] MEDS: famotidine 20 mg/2 mL INJ IVP (18:00)
[2020-10-07] MEDS: enoxaparin 40 mg/0.4 mL Syringe SUBCUT (18:00)
--- NOTE | 2020-10-07 18:47 | P.CONIM_ITS ---
Providers/Reason For Consult Consulting Physician/Specialty*: Pulmonary and critical care medicine Reason for Consult*: Acute hypoxic and hypercapnic respiratory failure in a patient with COPD. New diagnosis of likely metastatic lung cancer. Attending Physician: Alvarez Pritchett Primary Care Provider: Christina Alexander MD History of Present Illness History of Present Illness Sue Edwards is a 69 year old female who was brought to the emergency department after getting intubated by the EMS. The history was obtained from chart review. Based on the documentation, it appears that the patient was found unresponsive by her after his return from [facility]. The patient was last seen well around 10 AM. It is unclear to me at exactly what time the returned home and what time EMS reached her place. After she was brought to the emergency department. The patient underwent a CT scan of the head which did not reveal any acute intracranial pathology. Her urine testing was negative for opioids, benzos, and stimulants. The patient was found to be in acute hypoxic and hypercapnic respiratory failure. She also had lactic acidosis which is improving. Interestingly, the patient underwent a CT scan of the chest with contrast without pulmonary embolism protocol. On the CT scan the patient was found to have significant centrilobular paraseptal emphysema. She was also found to have several lung masses in both lungs. This is likely metastatic lung cancer. There is very minimal pneumothorax on the right. The patient has a past medical history of peripheral arterial disease, COPD, osteoporosis, multiple vertebral fracture, left lower extremity below-knee amputation, left hip replacement. I had seen the patient in the emergency department. The patient is intubated and sedated with fentanyl. She is on volume control with tidal volume of 400, PEEP of 5, respiratory rate of 14. The patient appears comfortable. I performed a bedside ultrasound. Good cardiac contractility, the patient likely has mild pulmonary hypertension. Review of Systems Narrative: Unable to obtain Meds/Allergies Home Medications and Allergies Home Medications Medication Instructions Recorded Confirmed Last Taken Type No Known Home Medications 10/07/20 10/07/20 Unknown History Allergies Allergy/AdvReac Type Severity Reaction Status Date / Time tramadol [From Ultram] Allergy Unknown Verified 10/07/20 12:59 Current Medications Current Medications Generic Name Dose Route Start Last Admin Trade Name Freq PRN Reason Stop Dose Admin Enoxaparin Sodium 40 mg 10/07/20 17:49 10/07/20 18:00 Enoxaparin 40 Mg/0.4 Ml Syringe SUBCUT 40 mg Q24H JUAN JOSE Administration Famotidine 20 mg 10/07/20 17:49 10/07/20 18:00 Famotidine 20 Mg/2 Ml Inj IVP 20 mg Q12H JUAN JOSE Administration Fentanyl 1,000 mcg/ Sodium 100 mls @ 0 mls/hr 10/07/20 17:45 10/07/20 18:00 Chloride IV 25 mcg/hr .Q0M JUAN JOSE 2.5 mls/hr Administration Protocol Per Protocol Methylprednisolone Sodium Succinate 40 mg 10/07/20 18:00 10/07/20 18:00 Methylprednisolone Sod Succ 40 Mg/Ml Inj IVP 40 mg Q6H JUAN JOSE Administration PFSH Acute PFSH: Medical History Chronic back pain COPD (chronic obstructive pulmonary disease) Depression DJD (degenerative joint disease) GERD (gastroesophageal reflux disease) Osteoporosis PVD (peripheral vascular disease) Smoking addiction Surgical History Femur fracture H/O vertebroplasty History of femoropopliteal bypass History of left below knee amputation History of tonsillectomy Family History Other CAD (coronary artery disease) Social History Smoking and tobacco status: current every day smoker Alcohol intake: unknown Substance/Drug Use: unknown Household members: spouse Marital status: Vitals/I&O/Wt Last Vital Signs Pulse 78 10/07/20 17:00 Resp 14 10/07/20 17:00 BP 102/68 10/07/20 17:00 Pulse Ox 100 10/07/20 17:00 10/07/20 10/07/20 10/07/20 06:59 14:59 22:59 Intake Total 2049 Balance 2049 Weight last 48 hrs Weight 120 lb Physical Exam Narrative: EXAM NARRATIVE: General: Patient is intubated and sedated Neck: No JVD Respiratory: Auscultation: Reduced breath sound bilaterally, no crackles or wheezing, audible rhonchi Cardiovascular: Regular rate and rhythm, S1-S2 present, distant heart sound, no peripheral edema. Abdomen: Soft, nondistended, very sluggish bowel sound Musculoskeletal: Left below-knee amputation Skin: No rash Neuro: Unable to assess. Urinary Catheter Management^: Mauro: Cath Placed During This Visit: yes Urinary Catheter Date of Insertion: 10/07/20 Urinary Catheter Time of Insertion: 13:45 Data Other Data: Attestation for Other Data: I personally reviewed and interpreted the following: A&P Assessment and plan (1) Acute respiratory failure with hypoxia and hypercapnia: This is a 69-year-old lady with a previous diagnosis of COPD who was brought to the hospital after being emergently intubated by the EMS for impending respiratory failure. Currently the patient is intubated and sedated. She is on volume control mechanical ventilation. No evidence of auto peeping on the ventilator. The etiology for her acute worsening of respiratory status is somewhat unclear. I had not talked to her . However, I'm unsure whether she had been suffering from an episode of COPD exacerbation. The etiology for acute deterioration of her mental and respiratory status could be exposure to drug. However, the urine tox screen was negative. I do wonder whether the patient had an episode of seizure. This would explain her lactic acidosis as well as respiratory failure. The CT head was negative for any acute intracranial pathology. Status: Acute (2) COPD exacerbation: The patient has significant centrilobular and paraseptal emphysema on the CT of the chest. She is receiving treatment for COPD exacerbation. She is currently receiving a high dose of Solu-Medrol which could be tapered down tomorrow. Status: Acute (3) Mass of lung: The patient likely has metastatic primary lung cancer. If the family wants to proceed for evaluation of that, the patient will need bronchoscopy. I believe the patient has endobronchial lesion and will be able to get a diagnosis from endobronchial biopsies. If after talking to the family it appears that they would like to get the procedure done while she is intubated I will plan on doing that tomorrow or the day after. Otherwise, I'll plan for that as outpatient. Status: Acute (4) Pneumothorax on right: The right-sided pneumothorax likely occurred during intubation. There had been no worsening of the pneumothorax. I do not believe the patient has any significant bronchopleural fistula. She does not need any intervention for this at this time. If there is any worsening of the respiratory status including hypoxia, increasing peak inspiratory airway pressure, the patient will require emergent management. However, this would be unlikely as the patient has not developed any worsening pneumothorax since she had the pain in the hospital. Thank you for the consultation. I'll continue to follow. Status: Acute Coding Level of Care Code Acute [employer] Professor for Ellieg Fwd Diagnoses Acute respiratory failure with hypoxia and hypercapnia J96.01; J96.02 COPD exacerbation J44.1 Mass of lung R91.8 Pneumothorax on right J93.9
--- NOTE | 2020-10-07 18:58 | ECG_ITS ---
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 Measurements Intervals [place] Rate: 84 P: 82 MD: 118 QRS: 71 QRSD: 81 T: -88 QT: 387 QTc: 460 Interpretive Statements SINUS RHYTHM WITH SHORT MD INTERVAL WITH OCCASIONAL SUPRAVENTRICULAR PREMATURE COMPLEXES LOW QRS VOLTAGE [QRS DEFLECTION < 0.5/1.0 mV IN LIMB/CHEST LEADS] POSSIBLE ANTERIOR MYOCARDIAL INFARCTION [30 ms Q WAVE IN V3/V4, OR R < 0.2 mV IN V4], OF INDETERMINATE AGE MODERATE T-WAVE ABNORMALITY, CONSIDER LATERAL ISCHEMIA [-0.1+ mV T WAVE IN I/aVL/V5/V6] Compared to ECG 10/07/2020 15:57:06 Myocardial infarct finding now present T-wave abnormality now present Possible ischemia now present Electronically Signed On 10-08-2020 22:56:59 CDT by Rebecca Mayers M.D. [id number]
--- NOTE | 2020-10-07 19:14 | PC.NURSE ---
updated pt's daughter with pt's admission status and obtained contact info: Daughter: Deborah Warren [phone] Son: Eloy Granadosmarleny [phone]
--- NOTE | 2020-10-07 20:00 | XRR_ITS ---
PROCEDURE INFORMATION: Exam: XR Chest Exam date and time: 10/07/2020 8:00 PM Age: 69 years old Clinical indication: Shortness of breath; Prior surgery; Additional info: Follow up on ptx R lung TECHNIQUE: Imaging protocol: XR of the chest. Views: 1 view. COMPARISON: CT chest w con* [id number] 10/07/2020 2:45 PM FINDINGS: Lungs: Circumscribed densities are seen in the mid and lower right lung. CT examination shows these findings represent tumor mass lesions. Pleural spaces: Unremarkable. No pleural effusion. Retrosternal right lung pneumothorax seen on CT chest examination is not well visualized.. Heart/Mediastinum: Unremarkable. No cardiomegaly. Bones/joints: There is lumbar spine osteopenia and kyphoplasty at multiple levels. NG tube is in the stomach. Endotracheal tube is above the princess. XR/XR chest 1V portable [id number] IMPRESSION: 1. Retrosternal right lung pneumothorax is not well visualized 2. Right mid and lower lobe mass lesions stable since prior 3. NG tube is in the stomach. 4. Endotracheal tube is above the princess. 5. Lumbar spine osteopenia and kyphoplasty multiple levels
--- NOTE | 2020-10-07 20:19 | PM.CONSULT ---
Providers/Reason For Consult Consulting Physician/Specialty*: RAMEZ Mayers MD/ Cardiology Reason for Consult*: Patient with hypoxic/hypercapnic respiratory failure, on the ventilator. Was found to have elevated troponin T Attending Physician: Alvarez Pritchett Primary Care Provider: Christina Alexander MD History of Present Illness History of Present Illness Sue Edwards is a 69 year old female who was brought to the emergency room by the EMS in a semi-unresponsive state, intubated. Apparently was found to be hypoxic and hypercapnic. She is currently intubated and is on an FiO2 of 50%. Her oxygen saturation is in the low 90s. Her initial troponin T was 37 with a 2-hour delta of 17. Cardiology consult is requested for further cardiac evaluation recommendations. The information is mostly from her and also from the medical records. Apparently this patient was found to be in the recliner by her this morning, possibly in deep sleep . So he did not bother to wake her up. He went to [facility] and came back within an hour and a half. At that time, she was found to be on the floor unresponsive. At this point he called the ambulance and she was brought to the emergency room intubated. This patient has a longstanding history of peripheral vascular disease and COPD. She had multiple peripheral artery intervention while she was in [place]. She came to the [facility] years ago. She is being followed by the vascular surgery at the [facility] in [place]. Approximately 3 years ago, she had a below-knee amputation on the left side. Details of this are not available. She has not been to the physician lately. According to the , she been losing weight and was having a very poor appetite for over the last 1 year. She may have lost around 30 pounds or so within a year. She used to be a heavy smoker smoking 2 to 3 pack a day for 50 years or so. Currently she smokes 1 pack a day. Has not had a recent pneumonia. No hemoptysis. She has no history for coronary disease or myocardial infarction. Never complained about chest pain as far as the can remember. He was hypotensive in the emergency room. After fluid hydration, her blood pressure came up. Review of Systems Narrative: CONSTITUTIONAL: No fever or chills. EYES: No blurring of vision or other visual disturbances lately. ENT: No hoarseness of voice, auditory disturbances or sore throat. CARDIOVASCULAR: As mentioned above. RESPIRATORY: Been having shortness of breath for the last several weeks. GASTROINTESTINAL: Has been having poor appetite. GENITOURINARY: No dysuria or hematuria. INTEGUMENTARY: No skin rashes or history of skin cancer. NEURO: No history for TIAs amaurosis. PSYCHIATRIC: No history of psychosis or major depression. HEMATOLOGIC: No bleeding disorders or significant anemia. ENDOCRINE: No history of polyuria or polydipsia. MUSCULOSKELETAL: No recent joint pain or swelling. ALLERGY/IMMUNOLOGY: As mentioned above. Meds/Allergies Home Medications and Allergies Home Medications Medication Instructions Recorded Confirmed Last Taken Type No Known Home Medications 10/07/20 10/07/20 Unknown History Allergies Allergy/AdvReac Type Severity Reaction Status Date / Time tramadol [From [facility]] Allergy Unknown Verified 10/07/20 12:59 Current Medications Current Medications Generic Name Dose Route Start Last Admin Trade Name Freq PRN Reason Stop Dose Admin Enoxaparin Sodium 40 mg 10/07/20 17:49 10/07/20 18:00 Enoxaparin 40 Mg/0.4 Ml Syringe SUBCUT 40 mg Q24H JUAN JOSE Administration Famotidine 20 mg 10/07/20 17:49 10/07/20 18:00 Famotidine 20 Mg/2 Ml Inj IVP 20 mg Q12H JUAN JOSE Administration Fentanyl 1,000 mcg/ Sodium 100 mls @ 0 mls/hr 10/07/20 17:45 10/07/20 18:00 Chloride IV 25 mcg/hr .Q0M JUAN JOSE 2.5 mls/hr Administration Protocol Per Protocol Methylprednisolone Sodium Succinate 40 mg 10/07/20 18:00 10/07/20 18:00 Methylprednisolone Sod Succ 40 Mg/Ml Inj IVP 40 mg Q6H JUAN JOSE Administration PFSH Acute PFSH: Medical History Chronic back pain COPD (chronic obstructive pulmonary disease) Depression DJD (degenerative joint disease) GERD (gastroesophageal reflux disease) Osteoporosis PVD (peripheral vascular disease) Smoking addiction Surgical History Femur fracture H/O vertebroplasty History of femoropopliteal bypass History of left below knee amputation History of tonsillectomy Family History Other CAD (coronary artery disease) Social History Smoking and tobacco status: current every day smoker Alcohol intake: unknown Substance/Drug Use: unknown Household members: spouse Marital status: Vitals/I&O/Wt Last Vital Signs Pulse 76 10/07/20 20:06 Resp 16 10/07/20 20:06 BP 105/68 10/07/20 20:06 Pulse Ox 97 10/07/20 20:06 10/07/20 10/07/20 10/07/20 06:59 14:59 22:59 Intake Total 2049 Balance 2049 Weight last 48 hrs Weight 120 lb Physical Exam Narrative: EXAM NARRATIVE: GENERAL: The patient is intubated and lightly sedated. However she responds to verbal commands with yes or no. Chronically ill looking and emaciated HEENT: Minimal pallor. No icterus or lymphadenopathy. The pupils are symmetrical. Oral cavity: There are no mucous membrane lesions. Funduscopic examination: The fundus is not visualized NECK: Trachea appears to be central. No masses noted. No JVD or thyromegaly appreciated. No carotid bruit. RESPIRATORY: Chest is symmetrical. No intercostals muscle retraction or any accessory muscle activation. There is no chest wall tenderness. Breath sounds are heard bilaterally. Scattered coarse Rales and rhonchi. Diminished intensity of breath sounds in the bases. BREASTS: Deferred. HEART: The PMI is in the 5th left intercostals space just inside the midclavicular line. No palpable precordial events. S1 and S2 are normal. No S3 or S4 heard. No pericardial rub or any click heard. ABDOMEN: No vessel pulsations or distention. No tenderness. No organomegaly appreciated. No abdominal bruit. Bowel sounds are normally heard. : Deferred. RECTAL: Deferred. LYMPHATIC: No lymphadenopathy noted in the neck . EXTREMITIES: No knee amputation on the left side. The femoral pulses are extremely weak on the right side. The dorsalis pedis and the posterior tibial pulses are nonpalpable. The right lower extremity is somewhat cold and clammy. Peripheral cyanosis present MUSCULOSKELETAL: No acute joint deformities or swelling SKIN: There are no significant rashes or ecchymosis. There is a skin tear near the right elbow NEUROPSYCHIATRIC: Patient is intubated. Moving all extremities Urinary Catheter Management^: Mauro: Cath Placed During This Visit: yes Urinary Catheter Date of Insertion: 10/07/20 Urinary Catheter Time of Insertion: 13:45 Data Labs: Other Labs: Laboratory Last Values WBC 9.7 10^3/uL (4.0- 10.0) 10/07/20 13:00 RBC 5.15 10^6/uL (4.1 -5.3) 10/07/20 13:00 Hgb 14.5 g/dL (11.5-1 5.3) 10/07/20 13:00 Hct 49.6 % (37.0-47.0 ) H 10/07/20 13:00 MCV 96.3 fL (81-99) 10/07/20 13:00 MCH 28.2 pg (28.0-34. 0) 10/07/20 13:00 MCHC 29.2 g/dL (30.0-3 6.0) L 10/07/20 13:00 RDW 14.9 % (12.1-15.1 ) 10/07/20 13:00 Plt Count 245 10^3/cmm (130 -400) 10/07/20 13:00 MPV 11.5 fL (7.4-10.4 ) H 10/07/20 13:00 Neut % (Auto) 79.7 % 10/07/20 13:00 Lymph % (Auto) 12.1 % 10/07/20 13:00 Geary % (Auto) 4.9 % 10/07/20 13:00 Eos % (Auto) 1.8 % 10/07/20 13:00 Baso % (Auto) 0.8 % 10/07/20 13:00 Neut # (Auto) 7.71 10^3/uL (1.8 -7.7) H 10/07/20 13:00 Lymph # (Auto) 1.2 10^3/uL (0.8- 4.8) 10/07/20 13:00 Geary # (Auto) 0.5 10^3/uL (0.2- 0.9) 10/07/20 13:00 Eos # (Auto) 0.2 10^3/uL (0.0- 0.8) 10/07/20 13:00 Baso # (Auto) 0.1 10^3/uL (0.0- 0.1) 10/07/20 13:00 Nucleated RBC % (a uto) 0 % 10/07/20 13:00 Nucleated RBCs # 0.0 /100WBC 10/07/20 13:00 PT 14.80 SECONDS (12 .1-14.9) 10/07/20 13:00 INR 1.13 (0.8-1.2) 10/07/20 13:00 APTT 33.0 SECONDS (23. 9-36.7) 10/07/20 13:00 Specimen Type Arterial 10/07/20 13:05 Sample Site Radial, left 10/07/20 13:05 ABG pH 7.14 (7.35-7.45) L* 10/07/20 13:05 ABG pCO2 63.9 mmHg (35-45) H* 10/07/20 13:05 ABG pO2 487.0 mmHg (80.0- 100.0) H 10/07/20 13:05 ABG HCO3 21.8 mmol/L (22-2 6) L 10/07/20 13:05 ABG O2 Saturation 99.9 10/07/20 13:05 ABG Base Excess -8.2 mmol/L (-2.0 -2.0) L 10/07/20 13:05 Keith Test Pos 10/07/20 13:05 A-a O2 Gradient 18.5 mmHg (5-10) H 10/07/20 13:05 Hematocrit 43.5 % (37-47) 10/07/20 13:05 Hgb O2 Saturation 96.8 % (95-100) 10/07/20 13:05 Carboxyhemoglobin 2.1 %THgb (0.4-20 .1) 10/07/20 13:05 Methemoglobin 1.0 % (0.4-1.5) 10/07/20 13:05 Total Hemoglobin 14.2 g/dL (12-16) 10/07/20 13:05 Sodium 138.0 mmol/L (131 -143) 10/07/20 13:05 Potassium 3.4 mmol/L (3.5-5 .0) L 10/07/20 13:05 Glucose 165.0 mg/dL (70-1 15) H 10/07/20 13:05 Ionized Calcium 1.2 mmol/L (1.1-1 .4) 10/07/20 13:05 O2 Delivery Device Vent 10/07/20 13:05 Mechanical Rate 15.0 10/07/20 13:05 FiO2 100.0 % 10/07/20 13:05 Tidal Volume 0.40 10/07/20 13:05 PEEP 6.0 cmH20 10/07/20 13:05 Research Computing Specialist ID Gd 10/07/20 13:05 Sodium 139 mmol/L (136-1 45) 10/07/20 13:00 Potassium 4.8 mmol/L (3.5-5 .1) 10/07/20 13:00 Chloride 100 mmol/L (98-10 7) 10/07/20 13:00 Carbon Dioxide 24 mmol/L (22-29) 10/07/20 13:00 Anion Gap 19.8 (5-19) H 10/07/20 13:00 BUN 9 mg/dL (8-23) 10/07/20 13:00 Creatinine 0.6 mg/dL (0.5-0. 9) 10/07/20 13:00 GFR Calculation 98.8 mL/min (90-1 30) 10/07/20 13:00 Glucose 206 mg/dL (65-115 ) H 10/07/20 13:00 Calculated Osmolal ity 293 mOsm/kg (285- 295) 10/07/20 13:00 Lactic Acid 5.0 mmol/L (0.5-2 .2) H* 10/07/20 13:30 Lactic Acid (Sepsi s) 3.5 mmol/L (0.5-2 .2) H 10/07/20 15:40 Calcium 8.9 mg/dL (8.5-10 .5) 10/07/20 13:00 Total Bilirubin 0.7 mg/dL (0.15-1 .2) 10/07/20 13:00 AST 79 U/L (0-32) H 10/07/20 13:00 ALT 40 U/L (0-33) H 10/07/20 13:00 Alkaline Phosphata se 122 IU/L (35-105) H 10/07/20 13:00 Ammonia 54 umol/L (11-51) H 10/07/20 13:00 Troponin T Baselin e 39 ng/L (0-10) H 10/07/20 13:00 Troponin T 120 Min fartun 56.07 ng/L (0-10) H 10/07/20 15:00 Delta Troponin T 17.07 ABS# (0-10) H* 10/07/20 15:00 Troponin T Hi Sens 6Hr Cancelled 10/07/20 19:23 Troponin T Hi Sens 6Hr Delta Cancelled 10/07/20 19:23 NT-Pro-B Natriuret Pep 982 pg/mL (0-125) H 10/07/20 13:00 Total Protein 6.3 g/dL (6.6-8.7 ) L 10/07/20 13:00 Albumin 3.7 g/dL (3.5-5.2 ) 10/07/20 13:00 Globulin 2.6 g/dL (1.3-4.6 ) 10/07/20 13:00 Urine Color Yellow (Yellow) 10/07/20 13:21 Urine Appearance Sl hazy (CLEAR) 10/07/20 13:21 Urine pH 5 (5-7) 10/07/20 13:21 Ur Specific Gravit y 1.020 (1.005-1.0 30) 10/07/20 13:21 Urine Protein Neg (Negative) 10/07/20 13:21 Urine Glucose (UA) Norm (Normal) 10/07/20 13:21 Urine Ketones Negative (Negati ve) 10/07/20 13:21 Urine Blood Neg (Negative) 10/07/20 13:21 Urine Nitrate Negative (Negati ve) 10/07/20 13:21 Urine Bilirubin Neg (Negative) 10/07/20 13:21 Urine Urobilinogen Norm mg/dL (Negat abelardo) 10/07/20 13:21 Ur Leukocyte Lashaun ase Negative (Negati ve) 10/07/20 13:21 Urine RBC None /hpf (0-2) 10/07/20 13:21 Urine WBC 0-4 /hpf (0-5) H 10/07/20 13:21 Ur Squamous Epith Cells 0-4 /hpf (0-5) H 10/07/20 13:21 Amorphous Sediment 1+ /hpf 10/07/20 13:21 Urine Bacteria 1+ /hpf (NONE) H 10/07/20 13:21 Urine Mucus Trace /hpf 10/07/20 13:21 Salicylates < 0.3 mg/dL (3-10 ) L 10/07/20 13:00 Urine Opiates Scre en Negative ng/mL (N egative) 10/07/20 13:21 Ur Barbiturates Sc reen Negative ng/mL (N egative) 10/07/20 13:21 Ur Phencyclidine S crn Negative ng/mL (N egative) 10/07/20 13:21 Ur Amphetamines Sc reen Negative ng/mL (N egative) 10/07/20 13:21 U Benzodiazepines Scrn Negative ng/mL (N egative) 10/07/20 13:21 Urine Cocaine Scre en Negative ng/mL (N egative) 10/07/20 13:21 U Marijuana (THC) Screen Negative ng/mL (N egative) 10/07/20 13:21 Ethyl Alcohol < 10 mg/dL (0-10) 10/07/20 13:00 SARS-CoV-2 Ag (Rap id) Negative (Negati ve) 10/07/20 13:21 Imaging^: CT Chest: My impression: Normal sinus rhythm with a heart rate of 96 bpm. Diffuse T wave changes in the anterolateral and inferior leads. Possible left atrial enlargement. Short CO interval. Borderline right axis deviation. Low voltage QRS complexes in the limb leads Radiologist's impression: . Multi lobar pulmonary masses and nodules. The largest mass in the RIGHT lower lobe measures 5.5 x 4.8 cm. Metastatic disease versus primary lung cancer with metastatic disease. 2. Small RIGHT pneumothorax, 10%. 3. Severe emphysema. 4. Nasogastric and endotracheal tubes in good position. 5. Numerous osteoporotic compression fractures in the thoracic and lumbar spine. 6. Moderate atherosclerosis of the aorta. 7. Marked cachexia. CXR: Radiologist's impression: 1. Retrosternal right lung pneumothorax is not well visualized 2. Right mid and lower lobe mass lesions stable since prior 3. NG tube is in the stomach. 4. Endotracheal tube is above the princess. 5. Lumbar spine osteopenia and kyphoplasty multiple levels A&P Assessment and plan (1) Elevated troponin: In view of the abnormal EKG, and extensive peripheral artery disease, is very possible that the patient may have underlying coronary artery disease causing non-ST elevation myocardial infarction. He got into an echocardiogram to evaluate the LV function and rule out other pathology. The bedside echocardiogram in the emergency room reportedly showed a normal ejection fraction. At this point, it may be appropriate to go ahead and start her on IV heparin and Plavix, if there is no contraindication Status: Acute (2) Hypotension: This could be multifactorial. Her poor hydration, hypoxemia/hypercapnia, myocardial ischemia, etc. could be contributing factors. If the blood pressure does not improve after careful hydration, may need to consider vasopressors. Status: Acute Qualifiers: Hypotension type: other hypotension type Qualified Code(s): I95.89 - Other hypotension (3) Acute respiratory failure with hypoxia and hypercapnia: Patient is currently intubated. Oxygenation seems to be fair on 50%. Status: Acute (4) PVD (peripheral vascular disease): Patient seems to have severe peripheral arterial disease. Apparently she has not been taking the medications. Status: Acute (5) Pneumothorax on right: The pneumothorax as of now seems to be small. This need to be closely monitored. Status: Acute (6) Mass of lung: Patient may have metastatic lesions. Further evaluation and management as per the pulmonary. Status: Acute Additional A&P Information Based on the patient's clinical progress, further recommendations will be made. As of now the patient's condition is critical. The understand this well. Thank you for the opportunity to evaluate this patient and make these recommendations Consult Attestations Medical Necessity Statement: Patient requires continued hospital stay for close monitoring and further management Coding Level of Care Code Acute Field Tech for [facility] Fwd History Detailed Exam Detailed Medical Decision Making High Complexity Diagnoses Elevated troponin R77.8 Hypotension I95.89 Hypotension type: other hypotension type Acute respiratory failure with hypoxia and hypercapnia J96.01; J96.02 PVD (peripheral vascular disease) I73.9 Pneumothorax on right J93.9 Mass of lung R91.8 Time Spent (min) 65
[2020-10-07] MEDS: ipratropium-albuterol 3 mL Neb INHALATION (20:34)
[2020-10-07 20:39] LABS: Glucose Point of Care 97 mg/dL (70-110)
--- NOTE | 2020-10-07 20:39 | XR_ITS ---
WS: [id number] Portable AP semiupright chest, 10/07/2020, 2123 hours Clinical Data: hypotension, pneumothorax on ct chest earlier Comparison: Portable chest, 10/07/2020, 1758 hours. Findings: The bilateral lung masses remain the same. The endotracheal tube is at the bifurcation. The nasogastric tube ends in the stomach. No effusions are seen. The heart is normal. The aortic arch an d descending aorta show calcification. There is vertebroplasty cement in lumbar vertebral bodies. Mon itor leads are on the chest wall. XR/XR chest 1V portable [id number] Impression: 1. Bilateral pulmonary masses remain the same. 2. Endotracheal tube barely above the princess. 3. Nasogastric tube ends in the stomach.
[2020-10-07 20:46] LABS: Thyroid Stimulating Hormone 0.77 uIU/mL (0.27-4.20)
[2020-10-07] MEDS: levofloxacin-dextrose 5 % 750 MG/150 ML PREMIX 100 MG IV (20:57)
[2020-10-07 21:07] LABS: Troponin 5 6HR 46.21 ng/L (0-10); Troponin 5 6HR Delta 7.21 ng/L (0-12)
[2020-10-07 21:14] LABS: ABG PCO2 54.5 mmHg (35-45); ABG PH Result 7.22 (7.35-7.45); Arterial Blood Gas Hematocrit 42.8 % (37-47); Blood Gas Operator Identificat JB; Blood Gas Sample Site Brachial, left; Blood Gas Sample Type Arterial; HCO3 ABG 22.3 mmol/L (22-26); Oxygen Device VENT; PO2 ABG 64.7 mmHg (80.0-100.0)
[2020-10-07] MEDS: sodium chloride 0.9% 1,000 ML 100 ML IV (21:48)
[2020-10-07] MEDS: heparin drip 25,000 UNIT/500 ML PREMIX 15.24 UNIT IV (22:01)
[2020-10-07] MEDS: clopidogrel 75 mg Tablet PO (22:08)
[2020-10-07] MEDS: heparin 5,000 unit/mL INJ 1 mL IV (22:08)
[2020-10-07] MEDS: midazolam 1 mg/mL INJ 2 mL IVP (23:26)
[2020-10-08] VITALS (152 sets, daily range): BP systolic 67–119; BP diastolic 43–73; PULSE 70–123; RESP 15–23; TEMP 36.2–36.8; O2SAT 87–97
[2020-10-08] MEDS: midazolam 1 mg/mL INJ 2 mL IVP ×9 (01:10→23:23)
--- NOTE | 2020-10-08 01:24 | PC.NURSE ---
ICU Arrival; Patient arrived to ICU at 2000 via gurney from ED. Accompanied by ED staff X2. Patient being manually bagged by RT, and was then moved over to ventilator upon arrival. Transferred to ICU bed with assistance of ICU staff X4 without incident. Vent settings; CMV mode, 16 RR, 400 TV, FiO2 30%, and peep of 5. Patient has numerous injuries to extremities noted (see wound assessment). Patient upon arrival was hypotensive and beginning to fight against ET tube. Maps noted to be in the low 50's. MD Dann notified, and new orders received. Dr. Mayers rounded to bedside on patient for assessment and consultation for further management. New orders received. No belongings were brought with patient. RN spoke with patient's and gave update on pt status and condition as well as updated on current POC. provided some patient background, and RN answered all questions. Virtual radiology phoned with critical results on CT findings. RN notified MD Dann and relayed message/number.
[2020-10-08] MEDS: ipratropium-albuterol 3 mL Neb INHALATION ×4 (02:08→20:01)
[2020-10-08 04:49] LABS: ABG PCO2 53.3 mmHg (35-45); ABG PH Result 7.22 (7.35-7.45); Arterial Blood Gas Hematocrit 39.9 % (37-47); Base Excess ABG -6.4 mmol/L (-2.0-2.0); Blood Gas Allen Test Pos; Blood Gas Operator Identificat JB; Blood Gas Sample Site Brachial, right; Blood Gas Sample Type Arterial; HCO3 ABG 21.7 mmol/L (22-26); Oxygen Device VENT; PO2 ABG 67.2 mmHg (80.0-100.0)
--- NOTE | 2020-10-08 05:00 | USCV_ITS ---
Sue Edwards Age: 69 Gender: F : 1950 Exam Date: 10/08/2020 06:21 Ordering Phys: Alvarez Pritchett MD Technologist: Exam Location: [facility] Indication: RESP ELV TROP BP: 135 / 80 HR: Rhythm: Sinus Technical Quality: FAIR MEASUREMENTS (Male / Female) Normal Values 2D ECHO LV Diastolic Diameter PLAX 3.7 cm 4.2 - 5.9 / 3.9 - 5.3 cm LV Systolic Diameter PLAX 2.0 cm IVS Diastolic Thickness 0.6 cm 0.6 - 1.0 / 0.6 - 0.9 cm IVS Systolic Thickness 1.2 cm LVPW Diastolic Thickness 0.7 cm 0.6 - 1.0 / 0.6 - 0.9 cm LVPW Systolic Thickness 1.1 cm LVOT Diameter 2.0 cm LV Ejection Fraction 2D Teich 76.1 % LV Ejection Fraction MOD 2C 53.1 % LV Ejection Fraction 2C AL 53.2 % LA Diameter 2.6 cm LA Width 3.3 cm LA Height 3.7 cm RA Width 3.2 cm RA Height 4.3 cm Aorta at Sinotubular Diameter 2.5 cm DOPPLER AV Peak Velocity 114.0 cm/s LVOT Peak Velocity 78.0 cm/s AV Area Cont Eq vti 2.0 cm squared AV Area Cont Eq pk 2.1 cm squared MV Area PHT 5.0 cm squared Mitral E to A Ratio 0.8 MV E' Velocity 32.5 cm/s Mitral E to MV E' Ratio 4.9 Mitral E to LV E' Lateral Ratio 3.7 Mitral E to LV E' Septal Ratio 7.2 TR Peak Velocity 129.0 cm/s TR Peak Gradient 6.7 mmHg Right Atrial Pressure 3.0 mmHg Pulmonary Artery Systolic Pressu 9.7 mmHg PV Peak Velocity 57.0 cm/s FINDINGS Left Ventricle Normal LV size with a slightly diminished ejection fraction of 50 to 55%. The interventricular septum appears to have mild diffuse hypokinesia. Because of the poor ultrasonic window, segmental wall motion analysis difficult Right Ventricle Mildly increased right ventricular size. Normal right ventricular systolic function. Right Atrium Mildly increased right atrial size. Left Atrium Possibly of normal size Mitral Valve Thickened mitral valve. Aortic Valve No gross abnormalities noted Tricuspid Valve [id number] tricuspid valve regurgitation. Pulmonic Valve Structurally normal pulmonic valve without significant stenosis. There is no pulmonic regurgitation. Pericardium No significant pericardial effusion Aorta Normal ascending aorta dimension. CONCLUSIONS Normal LV size with a slightly diminished ejection fraction of 50 to 55%. The interventricular septum appears to have mild diffuse hypokinesia. Because of the poor ultrasonic window, segmental wall motion analysis difficult. Thickened mitral valve. [id number] tricuspid valve regurgitation. Could not estimate the pulmonary artery pressure because of poor Doppler signals No significant pericardial effusion. Comparison with the previous study is difficult because of the difference in the technical quality. Dr Rebecca Mayers MD [facility] (Electronically Signed) Final Date: 08 October 2020 08:47 S
[2020-10-08 05:14] LABS: Basophils % 0.1 %; Hematocrit 42.5 % (37.0-47.0); Hemoglobin 12.9 g/dL (11.5-15.3); Lymphocytes # 0.4 10^3/uL (0.8-4.8); Lymphocytes % 5.6 %; Mean Corpuscular HGB Conc 30.4 g/dL (30.0-36.0); Mean Corpuscular Hemoglobin 28.5 pg (28.0-34.0); Mean Corpuscular Volume 93.8 fL (81-99); Mean Platelet Volume 12.1 fL (7.4-10.4); Monocytes # 0.1 10^3/uL (0.2-0.9); Monocytes % 1.6 %; Neutrophils # 6.25 10^3/uL (1.8-7.7); Neutrophils % 92.3 %; Nucleated Red Blood Cells % 0 %; Platelet Count 182 10^3/cmm (130-400); Red Blood Count 4.53 10^6/uL (4.1-5.3); White Blood Count 6.8 10^3/uL (4.0-10.0)
[2020-10-08 05:22] LABS: INR 1.28 (0.8-1.2)
[2020-10-08 05:33] LABS: Alanine Aminotransferase 176 U/L (0-33); Albumin Level 2.6 g/dL (3.5-5.2); Alkaline Phosphatase 94 IU/L (35-105); Anion Gap 11.1 (5-19); Aspartate Amino Transferase 156 U/L (0-32); Blood Urea Nitrogen 8 mg/dL (8-23); Calcium 7.7 mg/dL (8.5-10.5); Carbon Dioxide 22 mmol/L (22-29); Chloride 111 mmol/L (98-107); Globulin 2.4 g/dL (1.3-4.6); Glomerular Filtration Rate 219.9 mL/min (90-130); Glucose 112 mg/dL (65-115); Osmolality Calculated 289 mOsm/kg (285-295); Potassium 4.1 mmol/L (3.5-5.1); Sodium 140 mmol/L (136-145); Total Bilirubin 1.1 mg/dL (0.15-1.2)
[2020-10-08 05:37] LABS: Creatinine Clr Calc Pharmacy 54.9677
[2020-10-08] MEDS: famotidine 20 mg/2 mL INJ IVP ×2 (05:42→17:54)
--- NOTE | 2020-10-08 06:00 | XR_ITS ---
WS: [id number] Portable AP semiupright chest, 10/08/2020 Clinical Data: resp fail Comparison: Portable chest, 10/07/2020 Findings: The bilateral pulmonary masses remain the same. The endotracheal tube and nasogastric tube remain in same position. The aortic arch and descending aorta show calcification and tortuosity. Ther e is hazy opacity at the left costophrenic angle which may represent atelectasis and/or consolidation . Vertebroplasty cement is in the lumbar vertebral bodies. Monitor leads are on the chest wall. XR/XR chest 1V portable [id number] Impression: 1. No change in bilateral pulmonary masses. 2. No change in endotracheal tube and nasogastric tube. 3. Development of patchy opacity at left costophrenic angle.
[2020-10-08 06:03] LABS: Partial Thromboplastin Time 119.4 SECONDS (23.9-36.7)
[2020-10-08] MEDS: sodium chloride 0.9% 1,000 ML 100 ML IV (07:38)
[2020-10-08] MEDS: piperacillin-tazobactam 3.375 GM in sodium chloride 0.9% (plus) 50 ML IV ×3 (07:47→23:25)
--- NOTE | 2020-10-08 08:00 | PC.NURSE ---
dopplered pulse noted to RLE. pulse is weak per doppler.
[2020-10-08] MEDS: midodrine 5 mg TABLET PO ×3 (09:00→20:06)
[2020-10-08] MEDS: FUROsemide 10 mg/mL SDV 2mL 20 MG IVP (09:00)
--- NOTE | 2020-10-08 09:01 | CT_ITS ---
WS: [id number] CT ANGIOGRAPHY abdomen and pelvis HISTORY: lactic acidosis, PAD, hypotension, assess for ischemic bowel TECHNIQUE: CT angiogram is performed during IV injection. Reformation images reviewed. All CT scans a [facility] use at least one of these dose optimization techniques: automated exposure co ntrol; mA and/or kV adjustment per patient size (includes targeted exams where dose is matched to cli nical indication); or iterative reconstruction. CONTRAST: Omnipaque 350; 75 mL IV. DLP: 437.93 mGy-cm. COMPARISON: 10/07/2020 and 08/25/2015 Patient has known bilateral pulmonary masses and nodules which were recently described. Small bilater al pleural effusions with compressive atelectasis at the lung bases. Abdominal aorta: Extensive atherosclerotic plaque with intimal thickening and irregular calcification s throughout the abdominal aorta. Ectatic aorta. There is extensive calcification and very small celina lambert superior mesenteric artery and celiac axis. Multifocal areas of stenosis and a few areas of occlu graciela. Calcified and noncalcified plaque at multiple levels. MICHAEL is not identified. Small amount of free fluid within the abdomen and pelvis. I cannot identify changes to confirm bowel ischemia or extensive free air. Subtle changes may be difficult to identified with this amount of michael sarca and no fat. There is a single focus of air just anterior to the urinary bladder which I cannot definitely placed within a loop of bowel but there is adjacent bowel. There is diffuse fecal retentio n and constipation. Nasogastric tube is present in the stomach. 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 Prior vertebroplasties at L1-2 through L5. Osteopenia with severe demineralization of bones. Prior fi xation of the RIGHT hip. CT/CT angio abdomen pelvis [address] IMPRESSION: 1. Quality of this examination is significantly limited by patient's cachexia and anasarca. 2. Severe atherosclerosis aorta. Multifocal areas of high-grade stenosis and o cclusions within the superior mesenteric artery and celiac axis. Likely chronic stenoses but acute thrombus or progressive stenosis cannot be excluded. These are multifocal areas of stenosis.. 3. No contrast identified within the common femoral arteries distal to the darion tabulum. This may be due to timing of the bolus injection or occlusions. The de ep profunda are both patent. 4. Marked soft tissue anasarca and a small amount of free fluid. 5. No definite free air is identified or ischemic changes of the bowel. There is one focus of air just anterior to the urinary bladder which cannot definitel y be placed within the lumen. Indeterminate for free air. 6. Small bilateral pleural effusions slightly increased in size since 10/07/2020 .
--- NOTE | 2020-10-08 09:04 | PM.PN ---
Subjective Subjective: Interval history: Intubated, sedated. Per?some additional information. He had initially could not wake her up in the morning before leaving for [facility] but attributed that to perhaps having lack of sleep at night. On additional discussion he also notes that she had had vomiting for several days prior and finally stopped vomiting day before yesterday, and yesterday and finally had eaten something. He reports he has had very poor appetite for a long time. Lost a large amount of weight. Vitals/I&O/Wt Last Vital Signs Temp 97.1 F L 10/08/20 08:00 Pulse 73 10/08/20 08:58 Resp 15 10/08/20 08:53 BP 119/66 10/08/20 08:00 Pulse Ox 97 10/08/20 09:02 10/07/20 10/08/20 10/08/20 22:59 06:59 14:59 Intake Total 3329.407 / 3329.407 1507.435 / 4836.842 803.000 / 803.000 Output Total 200 / 200 975 / 1175 Balance 3129.407 / 3129.407 532.435 / 3661.842 803.000 / 803.000 Weight last 48 hrs Weight 53.851 kg Weight 54.431 kg Physical Exam Const: COMMON NORMALS: no acute distress NUTRITIONAL APPEARANCE: cachectic OTHER: Intubated, sedated HENMT: COMMON NORMALS: oropharynx normal Resp: COMMON NORMALS: normal respiratory effort AUSCULTATION: diminished lung sounds Cardio: COMMON NORMALS: regular rhythm, S1 normal heart sound present, S2 normal heart sound present and No murmurs present (Cardio) JUGULAR VENOUS DISTENTION: JVD RHYTHM: regular rhythm HEART SOUNDS: S1 normal heart sound present and S2 normal heart sound present GI: COMMON NORMALS: Normal to inspection, nondistended, normoactive bowel sounds present, Soft to palpation and non-tender PALPATION: Yes Soft to palpation Extremity: COMMON NORMALS: no joint enlargement and no pedal edema OTHER: Dusky right foot, blue pinky toe. Extremities cool to touch. Left BKA. Neuro: COMMON NORMALS: moves all extremities Skin: COMMON NORMALS: no rashes or lesions noted GENERAL SKIN EXAM: no rashes or lesions noted Urinary Catheter Management^: Mauro: Cath Placed During This Visit: yes Reason for Continuing Indwelling Catheter: Accurate Measurement of Urinary Output in Critically Ill Patients Urinary Catheter Date of Insertion: 10/07/20 Urinary Catheter Time of Insertion: 13:45 Data : 10/08/20 04:16 10/08/20 04:16 A&P Assessment and plan (1) Shock: Discussed with her , given history of COPD, possibility of adrenal insufficiency. She is continued on steroids as above for COPD exacerbation. We are not seeing adrenal hemorrhage on CT. Discussed at this time does not have appearance of overt sepsis, she remains afebrile, no leukocytosis. Empirically continue Zosyn for now as she did have vomiting, may have had some aspiration. Discussed NSTEMI. Appreciate cardiology assessment of TTE to exclude possible contribution of cardiogenic shock. Extremities are cold, but she has underlying severe peripheral arterial disease as well. Discussed the lower possibility of PE given malignancy, elevated risk. Currently already on anticoagulation. Consideration may be given to additional assessment once she is little bit more stable. Significantly in positive balance. Discussed with critical care physician we will give 20 mg IV push Lasix at this time. Monitor NARSEH. Repeat lactic acid. Repeat CMP later today. Status: Acute (2) Dusky feet: Dusky right foot, blue pinky toe: Discussed with her . Monitor vascular checks. She does have history of PAD, including bypass surgery, currently on pressor. Weaning of pressor starting. Discussed with nursing staff. She appears usually not running very high blood pressure, 90s-100s systolic as per admission in 2018. Wean pressor as tolerating. Status: Acute (3) Acute respiratory failure: reports mental status was already altered while leaving for the store, does not appear this was a sudden onset condition. COPD exacerbation. Possibly hypoxia exacerbated by metastatic cancer. At presentation also noted small pneumothorax with improvement in size on repeat CT. Intubated by EMS. Weaning trial. COPD with exacerbation, diminished air entry, hypercapnic, respiratory acidosis. Solu-Medrol. Nebs. ET aspirate culture. With vomiting several days prior, continue Ramirez Zosyn. Status: Acute (4) Acute encephalopathy: Wean sedation to assess mental status. states currently not taking any medications. Suspected 2/2 respiratory failure/hypercapnia, however, other causes possible including seuzire/post-ictal state, although no obvious brain mets noted but cannot be excluded on the plain CT. Hx chronic pain on opioids. Monitor mental status and for any seizure-like activity. Not known to have hisotry of cirrhosis, and significance of minimally elevated ammonia is unclear in setting of new liver changes, possibly metastatic disease. Status: Acute (5) Mass of lung: Appears to have either primary cancer with metastatic disease or metastatic disease in bilateral lungs. This appears to be new finding. Will need additional work-up depending on her condition and advanced care goals. Status: Acute (6) Pneumothorax on right: Improving. Status: Acute (7) COPD (chronic obstructive pulmonary disease): COPD with acute exacerbation as above. Status: Acute (8) Elevated troponin: Complete troponin EKG series. Suspect is demand ischemia secondary to respiratory failure. Assess TTE. Appreciate cardiology assessment. Status: Acute (9) Hypotension: Status: Acute Qualifiers: Hypotension type: other hypotension type Qualified Code(s): I95.89 - Other hypotension (10) NSTEMI (non-ST elevated myocardial infarction): Status: Acute Additional A&P Information Lactic acidosis: Repeat level. Discussed with , in combination with vomiting, appears to also have tenderness on exam grimacing on palpation of the right side of the abdomen, with history of PAD, as well as notes longstanding difficulties with appetite, weight loss, discussed concern regarding possibility of ischemic bowel. Discussed risks of CT angiogram of abdomen pelvis for additional assessment including risk of kidney injury given likely she may have some injury already potentially due to hypotension/hypoperfusion, chance of allergic reaction. states that she would have wanted to have a test like that done, agreed to proceed. Discussed with critical care physician. We will also repeat lactic acid level. Vomiting: ports were several days until day before the admission. Constipation: Significant constipation noted on CT abdomen pelvis. Longstanding poor appetite Weight loss Smoking addiction GERD Osteoporosis History of left BKA History of depression Other chronic medical problems noted. Attestations Medical Necessity Statement*: Continue admission for assessment of management of shock, respiratory failure, COPD exacerbation, new finding of metastatic cancer, pneumothorax, NSTEMI, additional assessment to exclude possible ischemic bowel. Critical Care Time: In addition to noncritical issues 55 minutes critical care time spent on assessment of management of hemodynamic instability, hypotension, titration of pressors, discussion with nursing staff, assessment of volume status, consideration of additional etiologies of shock, in the setting of NSTEMI, follow-up on pneumothorax, antibiotic regimen, monitoring of vascular/perfusion compromise to lower extremities with history of PAD, need for pressor, discussed with critical care physician, machine greaser, nursing staff, patient's . 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
--- NOTE | 2020-10-08 09:07 | P.PN_ITS ---
Subjective Subjective: Interval history: Patient seems to be more alert today. But currently his she is sedated. She is on a small dose of final pressors. There was some suggestion of a fluid overload status. Some of the fluid intake was cut back. Currently he seems to be doing okay. Still remains afebrile. Systolic blood pressures in the 100- 120 range. Medications: Reviewed: Yes Medication Review Details: Current Medications Acetaminophen (Acetaminophen 325 Mg Tablet) 650 mg PO Q6H PRN PRN Reason: Mild/Mod Pain Or Temp >/= 101 Albuterol/Ipratropium (Ipratropium-Albuterol 3 Ml Neb) 3 ml INHALATION Q6H.RESPIRATORY JUAN JOSE Last Admin: 10/08/20 08:49 Dose: 3 ml Documented by: Albuterol/Ipratropium (Ipratropium-Albuterol 3 Ml Neb) 3 ml INHALATION Q4H PRN PRN Reason: SHORTNESS OF BREATH Famotidine (Famotidine 20 Mg/2 Ml Inj) 20 mg IVP Q12H JUAN JOSE Last Admin: 10/08/20 05:42 Dose: 20 mg Documented by: Heparin Sodium (Beef Lung) (Heparin 5,000 Unit/Ml Inj 1 Ml) 0 unit IV PRN PRN; Protocol PRN Reason: Heparin weight-base protocol Last Admin: 10/07/20 22:08 Dose: 2,700 unit Documented by: Fentanyl 1,000 mcg/ Sodium (Chloride) 100 mls @ 0 mls/hr IV .Q0M JUAN JOSE; Protocol Last Admin: 10/08/20 07:56 Dose: 75 mcg/hr, 7.5 mls/hr Documented by: Norepinephrine Bitartrate 4 mg (/ Dextrose) 254 mls @ 0 mls/hr IV .Q0M JUAN JOSE; Protocol Last Admin: 10/08/20 06:31 Dose: 10 mcg/min, 38.1 mls/hr Documented by: Levofloxacin/Dextrose (Levaquin-D5w) 750 mg in 150 mls @ 100 mls/hr IV Q24H JUAN JOSE; Protocol Last Infusion: 10/07/20 22:43 Dose: Infused Documented by: Heparin Sodium/Sodium Chloride (Heparin Drip) 25,000 unit in 500 mls @ 0 mls/hr IV .Q0M JUAN JOSE; Protocol Last Titration: 10/08/20 06:23 Dose: 11 unit/kg/hr, 11.98 mls/hr Documented by: Piperacillin Sod/Tazobactam (Sod 3.375 gm/ Sodium Chloride) 50 mls @ 12.5 mls/hr IV Q8H COUNT INCLUDES THE [facility]; Protocol Last Admin: 10/08/20 07:47 Dose: 12.5 mls/hr Documented by: Methylprednisolone Sodium Succinate (Methylprednisolone Sod Succ 40 Mg/Ml Inj) 40 mg IVP Q6H COUNT INCLUDES THE [facility] Last Admin: 10/08/20 05:42 Dose: 40 mg Documented by: Midazolam HCl (Midazolam 1 Mg/Ml Inj 2 Ml) 1 mg IVP Q1H PRN PRN Reason: sedation/anxiety to mcdowell 3 Last Admin: 10/08/20 07:55 Dose: 1 mg Documented by: Midodrine (Midodrine 5 Mg Tablet) 5 mg PO TID COUNT INCLUDES THE [facility] Last Admin: 10/08/20 09:00 Dose: 5 mg Documented by: Vitals/I&O/Wt Last Vital Signs Temp 97.1 F L 10/08/20 08:00 Pulse 73 10/08/20 08:58 Resp 15 10/08/20 08:53 BP 119/66 10/08/20 08:00 Pulse Ox 97 10/08/20 09:02 10/07/20 10/08/20 10/08/20 22:59 06:59 14:59 Intake Total 3329.407 / 3329.407 1507.435 / 4836.842 803.000 / 803.000 Output Total 200 / 200 975 / 1175 Balance 3129.407 / 3129.407 532.435 / 3661.842 803.000 / 803.000 Weight last 48 hrs Weight 118 lb 11.538 oz Weight 120 lb Physical Exam Narrative: EXAM NARRATIVE: GENERAL: The patient is intubated and lightly sedated. However she responds to verbal commands with yes or no. Chronically ill looking and emaciated HEENT: Minimal pallor. No icterus or lymphadenopathy. The pupils are symmetrical. Oral cavity: There are no mucous membrane lesions. NECK: Trachea appears to be central. No masses noted. No JVD or thyromegaly appreciated. No carotid bruit. RESPIRATORY: Chest is symmetrical. No intercostals muscle retraction or any accessory muscle activation. There is no chest wall tenderness. Breath sounds are heard bilaterally. Scattered coarse Rales and rhonchi. Diminished intensity of breath sounds in the bases. BREASTS: Deferred. HEART: The PMI is in the 5th left intercostals space just inside the midclavicular line. No palpable precordial events. S1 and S2 are normal. No S3 or S4 heard. No pericardial rub or any click heard. ABDOMEN: No vessel pulsations or distention. No tenderness. No organomegaly appreciated. No abdominal bruit. Bowel sounds are normally heard. : Deferred. RECTAL: Deferred. LYMPHATIC: No lymphadenopathy noted in the neck . 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 The femoral pulses are ex tremely weak bilaterally .The dorsalis pedis and the posterior tibial pulses are nonpalpable, on the right side. The right lower extremity is somewhat cold and clammy. Peripheral cyanosis present MUSCULOSKELETAL: No acute joint deformities or swelling SKIN: There are no significant rashes or ecchymosis. There is a skin tear near the right elbow NEUROPSYCHIATRIC: Patient is intubated. Moving all extremities Urinary Catheter Management^: Mauro: Cath Placed During This Visit: yes Reason for Continuing Indwelling Catheter: Accurate Measurement of Urinary Output in Critically Ill Patients Urinary Catheter Date of Insertion: 10/07/20 Urinary Catheter Time of Insertion: 13:45 Data : 10/08/20 04:16 10/08/20 16:01 Other Labs: Laboratory Last Values WBC 6.8 10^3/uL (4.0-10.0) 10/08/20 04:16 RBC 4.53 10^6/uL (4.1-5.3) 10/08/20 04:16 Hgb 12.9 g/dL (11.5-15.3) 10/08/20 04:16 Hct 42.5 % (37.0-47.0) 10/08/20 04:16 MCV 93.8 fL (81-99) 10/08/20 04:16 MCH 28.5 pg (28.0-34.0) 10/08/20 04:16 MCHC 30.4 g/dL (30.0-36.0) 10/08/20 04:16 RDW 15.0 % (12.1-15.1) 10/08/20 04:16 Plt Count 182 10^3/cmm (130-400) 10/08/20 04:16 MPV 12.1 fL (7.4-10.4) H 10/08/20 04:16 Neut % (Auto) 92.3 % 10/08/20 04:16 Lymph % (Auto) 5.6 % 10/08/20 04:16 [place] % (Auto) 1.6 % 10/08/20 04:16 Eos % (Auto) 0.0 % 10/08/20 04:16 Baso % (Auto) 0.1 % 10/08/20 04:16 Neut # (Auto) 6.25 10^3/uL (1.8-7.7) 10/08/20 04:16 Lymph # (Auto) 0.4 10^3/uL (0.8-4.8) L 10/08/20 04:16 [place] # (Auto) 0.1 10^3/uL (0.2-0.9) L 10/08/20 04:16 Eos # (Auto) 0.0 10^3/uL (0.0-0.8) 10/08/20 04:16 Baso # (Auto) 0.0 10^3/uL (0.0-0.1) 10/08/20 04:16 Nucleated RBC % (auto) 0 % 10/08/20 04:16 Nucleated RBCs # 0.0 /100WBC 10/08/20 04:16 PT 16.40 SECONDS (12.1-14.9) H 10/08/20 04:16 INR 1.28 (0.8-1.2) H 10/08/20 04:16 APTT 119.4 SECONDS (23.9-36.7) H D 10/08/20 04:16 Specimen Type Arterial 10/08/20 04:35 Sample Site Brachial, right 10/08/20 04:35 ABG pH 7.22 (7.35-7.45) L 10/08/20 04:35 ABG pCO2 53.3 mmHg (35-45) H 10/08/20 04:35 ABG pO2 67.2 mmHg (80.0-100.0) L 10/08/20 04:35 ABG HCO3 21.7 mmol/L (22-26) L 10/08/20 04:35 ABG O2 Saturation 99.9 10/07/20 13:05 ABG Base Excess -6.4 mmol/L (-2.0-2.0) L 10/08/20 04:35 Keith Test Pos 10/08/20 04:35 A-a O2 Gradient 18.5 mmHg (5-10) H 10/07/20 13:05 Hematocrit 39.9 % (37-47) 10/08/20 04:35 Hgb O2 Saturation 96.8 % (95-100) 10/07/20 13:05 Carboxyhemoglobin 2.1 %THgb (0.4-20.1) 10/07/20 13:05 Methemoglobin 1.0 % (0.4-1.5) 10/07/20 13:05 Total Hemoglobin 14.2 g/dL (12-16) 10/07/20 13:05 Sodium 138.0 mmol/L (131-143) 10/07/20 13:05 Potassium 3.4 mmol/L (3.5-5.0) L 10/07/20 13:05 Glucose 165.0 mg/dL (70-115) H 10/07/20 13:05 Ionized Calcium 1.2 mmol/L (1.1-1.4) 10/07/20 13:05 O2 Delivery Device Vent 10/08/20 04:35 Mechanical Rate 15.0 10/07/20 13:05 FiO2 35.0 % 10/08/20 04:35 Tidal Volume 0.40 10/08/20 04:35 PEEP 5.0 cmH20 10/08/20 04:35 Emergency Room Clinician ID Kevin 10/08/20 04:35 Sodium 140 mmol/L (136-145) 10/08/20 04:16 Potassium 4.1 mmol/L (3.5-5.1) 10/08/20 04:16 Chloride 111 mmol/L (98-107) H 10/08/20 04:16 Carbon Dioxide 22 mmol/L (22-29) 10/08/20 04:16 Anion Gap 11.1 (5-19) 10/08/20 04:16 BUN 8 mg/dL (8-23) 10/08/20 04:16 Creatinine 0.3 mg/dL (0.5-0.9) L 10/08/20 04:16 GFR Calculation 219.9 mL/min (90-130) H 10/08/20 04:16 Glucose 112 mg/dL (65-115) 10/08/20 04:16 POC Glucose 97 mg/dL (70-110) 10/07/20 20:11 Calculated Osmolality 289 mOsm/kg (285-295) 10/08/20 04:16 Lactic Acid 5.0 mmol/L (0.5-2.2) H* 10/07/20 13:30 Lactic Acid (Sepsis) 3.5 mmol/L (0.5-2.2) H 10/07/20 15:40 Calcium 7.7 mg/dL (8.5-10.5) L 10/08/20 04:16 Total Bilirubin 1.1 mg/dL (0.15-1.2) 10/08/20 04:16 AST 156 U/L (0-32) H 10/08/20 04:16 ALT 176 U/L (0-33) H 10/08/20 04:16 Alkaline Phosphatase 94 IU/L (35-105) 10/08/20 04:16 Ammonia 54 umol/L (11-51) H 10/07/20 13:00 Troponin T Baseline 39 ng/L (0-10) H 10/07/20 13:00 Troponin T 120 Minute 56.07 ng/L (0-10) H 10/07/20 15:00 Delta Troponin T 17.07 ABS# (0-10) H* 10/07/20 15:00 Troponin T Hi Sens 6Hr 46.21 ng/L (0-10) H 10/07/20 20:40 Troponin T Hi Sens 6Hr Delta 7.21 ng/L (0-12) 10/07/20 20:40 NT-Pro-B Natriuret Pep 982 pg/mL (0-125) H 10/07/20 13:00 Total Protein 5.0 g/dL (6.6-8.7) L D 10/08/20 04:16 Albumin 2.6 g/dL (3.5-5.2) L 10/08/20 04:16 Globulin 2.4 g/dL (1.3-4.6) 10/08/20 04:16 TSH 0.77 uIU/mL (0.27-4.20) 10/07/20 15:00 Urine Color Yellow (Yellow) 10/07/20 13:21 Urine Appearance Sl hazy (CLEAR) 10/07/20 13:21 Urine pH 5 (5-7) 10/07/20 13:21 Ur Specific [place] 1.020 (1.005-1.030) 10/07/20 13:21 Urine Protein Neg (Negative) 10/07/20 13:21 Urine Glucose (UA) Norm (Normal) 10/07/20 13:21 Urine Ketones Negative (Negative) 10/07/20 13:21 Urine Blood Neg (Negative) 10/07/20 13:21 Urine Nitrate Negative (Negative) 10/07/20 13:21 Urine Bilirubin Neg (Negative) 10/07/20 13:21 Urine Urobilinogen Norm mg/dL (Negative) 10/07/20 13:21 Ur Leukocyte Esterase Negative (Negative) 10/07/20 13:21 Urine RBC None /hpf (0-2) 10/07/20 13:21 Urine WBC 0-4 /hpf (0-5) H 10/07/20 13:21 Ur Squamous Epith Cells 0-4 /hpf (0-5) H 10/07/20 13:21 Amorphous Sediment 1+ /hpf 10/07/20 13:21 Urine Bacteria 1+ /hpf (NONE) H 10/07/20 13:21 Urine Mucus Trace /hpf 10/07/20 13:21 Salicylates < 0.3 mg/dL (3-10) L 10/07/20 13:00 Urine Opiates Screen Negative ng/mL (Negative) 10/07/20 13:21 Ur Barbiturates Screen Negative ng/mL (Negative) 10/07/20 13:21 Ur Phencyclidine Scrn Negative ng/mL (Negative) 10/07/20 13:21 Ur Amphetamines Screen Negative ng/mL (Negative) 10/07/20 13:21 U Benzodiazepines Scrn Negative ng/mL (Negative) 10/07/20 13:21 Urine Cocaine Screen Negative ng/mL (Negative) 10/07/20 13:21 U Marijuana (THC) Screen Negative ng/mL (Negative) 10/07/20 13:21 Ethyl Alcohol < 10 mg/dL (0-10) 10/07/20 13:00 SARS-CoV-2 Ag (Rapid) Negative (Negative) 10/07/20 13:21 A&P Assessment and plan (1) Elevated troponin: In view of the abnormal EKG, and extensive peripheral artery disease, is very possible that the patient may have underlying coronary artery disease causing non-ST elevation myocardial infarction. Echocardiogram revealed relative hypokinesia of the septal segment. No other acute wall motion normalities were noted. Currently seems to be tolerating the heparin and the Plavix well. Status: Acute (2) Hypotension: This could be multifactorial. Her poor hydration, hypoxemia/hypercapnia, myocardial ischemia, etc. could be contributing factors. Currently her blood pressure seems to have come up. At this point, patient may require any specific intervention. Status: Acute Qualifiers: Hypotension type: other hypotension type Qualified Code(s): I95.89 - Other hypotension (3) Acute respiratory failure with hypoxia and hypercapnia: Patient is currently intubated. Oxygenation seems to be fair on FiO2 of 35% Status: Acute (4) PVD (peripheral vascular disease): Patient seems to have severe peripheral arterial disease. Status: Acute (5) Pneumothorax on right: The pneumothorax as of now seems to be small. Repeat x-ray shows the pneumothorax to be around 5% Status: Acute (6) Mass of lung: Patient may have metastatic lesions. Further evaluation and management as per the pulmonary. Status: Acute Additional A&P Information Patient may continue on the current medication for the time being. We may consider doing further cardiac work-up, once the patient is extubated and stable. In view of the patient's multiple comorbidities, the overall prognosis is poor. 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
--- NOTE | 2020-10-08 09:09 | PM.PN ---
Subjective Subjective: Interval history: The patient was seen and examined this morning. She is intubated and sedated. Overnight, she was started on antiplatelet and anticoagulant for concerns for non-ST elevated MT. This morning, the patient was on 75 mcg of fentanyl. The patient was still arousable. She did not follow any commands. The patient is more than 4 L fluid positive. I was able to talk to her this morning. It appears that the patient was not responsive yesterday morning when he left for [place]. He had thought that the patient was sleeping. He also reported worsening of her respiratory status over the past few weeks. He also reports nausea and retching over the past few days. Medications: Reviewed: Yes Vitals/I&O/Wt Last Vital Signs Temp 97.1 F L 10/08/20 08:00 Pulse 73 10/08/20 08:58 Resp 15 10/08/20 08:53 BP 119/66 10/08/20 08:00 Pulse Ox 97 10/08/20 09:02 10/07/20 10/08/20 10/08/20 22:59 06:59 14:59 Intake Total 3329.407 / 3329.407 1507.435 / 4836.842 803.000 / 803.000 Output Total 200 / 200 975 / 1175 Balance 3129.407 / 3129.407 532.435 / 3661.842 803.000 / 803.000 Weight last 48 hrs Weight 118 lb 11.538 oz Weight 120 lb Physical Exam Narrative: EXAM NARRATIVE: General: Patient is intubated and sedated Neck: No JVD Respiratory: Auscultation: Reduced breath sound bilaterally, no crackles or wheezing, or rhonchi Cardiovascular: Regular rate and rhythm, S1-S2 present, distant heart sound, no peripheral edema. Abdomen: Soft, nondistended, positive bowel sound Musculoskeletal: Left below-knee amputation Skin: No rash Neuro: She is arousable with sternal rub Urinary Catheter Management^: Mauro: Cath Placed During This Visit: yes Reason for Continuing Indwelling Catheter: Accurate Measurement of Urinary Output in Critically Ill Patients Urinary Catheter Date of Insertion: 10/07/20 Urinary Catheter Time of Insertion: 13:45 Data : 10/08/20 04:16 10/08/20 04:16 Attestation for Other Data: I personally reviewed and interpreted the following: Other data: I have reviewed the patient's laboratory, microbiologic and radiologic data. A&P Assessment and plan (1) Acute respiratory failure with hypoxia and hypercapnia: This is a 69-year-old lady with a previous diagnosis of COPD who was brought to the hospital after being emergently intubated by the EMS for impending respiratory failure. Currently the patient is intubated and sedated. She is on volume control mechanical ventilation. No evidence of auto peeping on the ventilator. The morning blood gas revealed respiratory acidosis. I have made ventilator changes. I believe that the etiology for her acute hypercapnic and hypoxic respiratory failure is COPD exacerbation. The history obtained from the corroborated that. The patient is on steroid, antibiotic and nebulization. I am hoping to reduce her sedation and wake her up more. When the patient is able to initiate breath, we will switch her to pressure support mode. Status: Acute (2) COPD exacerbation: The patient has significant centrilobular and paraseptal emphysema on the CT of the chest. She is receiving treatment for COPD exacerbation. Status: Acute (3) NSTEMI (non-ST elevated myocardial infarction): The patient is currently on antiplatelet and antithrombotic therapy for suspected NSTEMI. Status: Acute (4) Shock: The patient likely has vasodilatory shock. Currently she is on Levophed 10 mcg. I am starting her on small dose of midodrine with the hope to reduce the Levophed. The patient has significant peripheral arterial disease and will minimize the pressure usage. She is also going to undergo a CT angiogram of the abdomen and pelvis to make sure there is no evidence of bowel ischemia. Especially in the setting of abdominal pain nausea and vomiting prior to presentation to the hospital. Status: Acute (5) Mass of lung: The patient likely has metastatic primary lung cancer. I will likely work this up as an outpatient. Status: Acute (6) Pneumothorax on right: No worsening of the pneumothorax on the chest x-ray this morning. Status: Acute Attestations Medical Necessity Statement*: Will defer to the primary team Coding Level of Care Code Acute Electronic Scale Assembler And Tester for [facility] Diagnoses Acute respiratory failure with hypoxia and hypercapnia J96.01; J96.02 COPD exacerbation J44.1 NSTEMI (non-ST elevated myocardial infarction) I21.4 Shock R57.9 Mass of lung R91.8 Pneumothorax on right J93.9
--- NOTE | 2020-10-08 10:15 | PC.CHAP ---
Pastoral Care Encounter/Spiritual Assessment Type of Contact [] Declined aix administrator visit [] Patient/Family/Request visit [] Outpatient visit [] Follow-up visit [] Physician referral [] Code/Alert [x] Routine visit [] Staff referral [] Actively dying [] Patient sleeping [x] Family support [] [] Out of room [] Palliative care [] [x] Receiving care in room [] Pre-surgical visit [] Trauma [] Long length of stay [x] ICU visit [] Other: Relational/Emotional Strength [] Patient feels connected with others/family/visitors/staff [] Distress [] Loneliness/isolation [] Abandonment Spirituality of Patient [] Person of Meagan [] Attends Buddhism of their Meagan [] Believes in Prayer [] Reads Bible or Yarsani materials [] There are Spiritual issues to be addressed Representative Government Relations Interventions [x] Prayer [] Active listening [] Non-anxious presence [] Spiritual/emotional support [] Crisis/trauma care [] Spiritual counseling [] Bereavement support [] Provided bereavement packet [] Provided Bible/devotional materials [] Provided toy/stuffed animal, coloring book to patient or family member [] Provided Communion [] Anointing/[place] [] Salvation [x] Completed spiritual assessment [] Other: Impact on Illness or Injury [] Angry [] Fearful [] Anxious [] Often cries [] Exhaustion [] Unable to work [] Unable to attend gnosticism [] Unable to walk/stand [] Unable to read [] Unable to drive [] Unable to eat/drink [] Unable to sleep [] Unable to be with family [] Patient intubated [] Other: Summary Time spent with patient
[2020-10-08 10:58] LABS: Lactate (Lactic Acid level) 2.6 mmol/L (0.5-2.2)
[2020-10-08 11:16] LABS: Partial Thromboplastin Time 90.9 SECONDS (23.9-36.7)
[2020-10-08 16:22] LABS: Partial Thromboplastin Time 43.4 SECONDS (23.9-36.7)
[2020-10-08 16:45] LABS: Alanine Aminotransferase 135 U/L (0-33); Albumin Level 2.8 g/dL (3.5-5.2); Alkaline Phosphatase 84 IU/L (35-105); Blood Urea Nitrogen 8 mg/dL (8-23); Carbon Dioxide 22 mmol/L (22-29); Chloride 105 mmol/L (98-107); Globulin 2.3 g/dL (1.3-4.6); Glomerular Filtration Rate 157.8 mL/min (90-130); Glucose 100 mg/dL (65-115); Osmolality Calculated 286 mOsm/kg (285-295); Sodium 139 mmol/L (136-145); Total Bilirubin 0.6 mg/dL (0.15-1.2); Total Protein 5.1 g/dL (6.6-8.7)
[2020-10-08 17:01] LABS: Anion Gap 15.7 (5-19); Aspartate Amino Transferase 101 U/L (0-32); Potassium 3.7 mmol/L (3.5-5.1)
[2020-10-08] MEDS: heparin 5,000 unit/mL INJ 1 mL IV (17:53)
[2020-10-08] MEDS: levofloxacin-dextrose 5 % 750 MG/150 ML PREMIX 100 MG IV (20:06)
[2020-10-08 23:04] LABS: Partial Thromboplastin Time 116.6 SECONDS (23.9-36.7)
[2020-10-09] VITALS (180 sets, daily range): BP systolic 80–106; BP diastolic 47–72; PULSE 44–132; RESP 15–22; TEMP 36.6–36.9; O2SAT 86–99
[2020-10-09] MEDS: ipratropium-albuterol 3 mL Neb INHALATION ×4 (02:16→21:06)
[2020-10-09] MEDS: midazolam 1 mg/mL INJ 2 mL IVP ×3 (02:20→06:13)
[2020-10-09] MEDS: famotidine 20 mg/2 mL INJ IVP ×2 (04:51→17:00)
[2020-10-09 05:40] LABS: ABG PCO2 37.4 mmHg (35-45); ABG PH Result 7.45 (7.35-7.45); Arterial Blood Gas Hematocrit 37.8 % (37-47); Base Excess ABG 2.1 mmol/L (-2.0-2.0); Blood Gas Operator Identificat JB; Blood Gas Sample Site Brachial, right; Blood Gas Sample Type Arterial; HCO3 ABG 26.1 mmol/L (22-26); Oxygen Device VENT; PO2 ABG 71.6 mmHg (80.0-100.0)
[2020-10-09 06:00] LABS: Basophils % 0.1 %; Eosinophils % 0.1 %; Hematocrit 36.9 % (37.0-47.0); Hemoglobin 11.9 g/dL (11.5-15.3); Lymphocytes # 0.5 10^3/uL (0.8-4.8); Lymphocytes % 7.1 %; Mean Corpuscular HGB Conc 32.2 g/dL (30.0-36.0); Mean Corpuscular Hemoglobin 28.7 pg (28.0-34.0); Mean Corpuscular Volume 89.1 fL (81-99); Mean Platelet Volume 11.4 fL (7.4-10.4); Monocytes # 0.2 10^3/uL (0.2-0.9); Monocytes % 3.3 %; Neutrophils # 6.38 10^3/uL (1.8-7.7); Nucleated Red Blood Cells % 0 %; Platelet Count 142 10^3/cmm (130-400); Red Blood Count 4.14 10^6/uL (4.1-5.3); Red Cell Distribution Width 15.1 % (12.1-15.1); White Blood Count 7.2 10^3/uL (4.0-10.0)
--- NOTE | 2020-10-09 06:00 | XR_ITS ---
WS: [id number] Portable AP semiupright chest, 10/09/2020 Clinical Data: Hypoxia Comparison: Portable chest, 10/08/2020 Findings: The bilateral pulmonary densities remain the same. The heart is normal. The endotracheal tu be is above the princess. The nasogastric tube remains in good position. The pulmonary vascularity is n ot increased. Monitor leads are on the chest wall. Vertebroplasty cement is seen in lumbar vertebral bodies. XR/XR chest 1V portable [id number] Impression: 1. Satisfactory position of endotracheal tube and nasogastric tube. 2. No change in bilateral pulmonary densities.
[2020-10-09 06:11] LABS: Partial Thromboplastin Time 41.3 SECONDS (23.9-36.7)
[2020-10-09 06:14] LABS: Alanine Aminotransferase 132 U/L (0-33); Albumin Level 2.7 g/dL (3.5-5.2); Alkaline Phosphatase 77 IU/L (35-105); Anion Gap 12.7 (5-19); Aspartate Amino Transferase 76 U/L (0-32); Blood Urea Nitrogen 11 mg/dL (8-23); Calcium 8.6 mg/dL (8.5-10.5); Carbon Dioxide 23 mmol/L (22-29); Chloride 107 mmol/L (98-107); Globulin 2.3 g/dL (1.3-4.6); Glomerular Filtration Rate 157.8 mL/min (90-130); Glucose 94 mg/dL (65-115); Osmolality Calculated 287 mOsm/kg (285-295); Potassium 3.7 mmol/L (3.5-5.1); Sodium 139 mmol/L (136-145); Total Bilirubin 0.6 mg/dL (0.15-1.2)
[2020-10-09] MEDS: heparin 5,000 unit/mL INJ 1 mL IV ×2 (06:37→20:43)
--- NOTE | 2020-10-09 06:41 | PC.NURSE ---
1900; During bedside rounding, RN found patient had disconnected herself from the vent by thrashing around and raising body up in bed. Vent reconnected. RT notified. PRN sedation meds given. RN remained at bedside for monitoring and assessment. Frequently, throughout shift, physician underwriter found patient breathing at increased rate, and visibly anxious thrashing in bed. Verbal interventions temporarily assisted in calming patient down, just long enough for patient to be able to return back into the 90% SPO2. PRN sedation meds given when indicated, and per protocol.
--- NOTE | 2020-10-09 07:07 | PC.RESP ---
SMOKING CESSATION AND PULMONARY REHAB INFORMATION SENT TO PATIENT.
[2020-10-09] MEDS: piperacillin-tazobactam 3.375 GM in sodium chloride 0.9% (plus) 50 ML IV ×2 (08:19→16:11)
[2020-10-09] MEDS: midodrine 5 mg TABLET PO ×3 (08:19→20:43)
--- NOTE | 2020-10-09 08:49 | PC.CHAP ---
Pastoral Care Encounter/Spiritual Assessment Type of Contact [] Declined county agent visit [] Patient/Family/Request visit [] Outpatient visit [] Follow-up visit [] Physician referral [] Code/Alert [x] Routine visit [] Staff referral [] Actively dying [] Patient sleeping [x] Family support [] [] Out of room [] Palliative care [] [x] Receiving care in room [] Pre-surgical visit [] Trauma [] Long length of stay [x] ICU visit [x] Other: ventilator Relational/Emotional Strength [] Patient feels connected with others/family/visitors/staff [] Distress [] Loneliness/isolation [] Abandonment Spirituality of Patient [] Person of Meagan [] Attends Taoist of their Meagan [] Believes in Prayer [] Reads Bible or Jain materials [] There are Spiritual issues to be addressed [employer] Interventions [x] Prayer [x] Active listening [x] Non-anxious presence [x] Spiritual/emotional support [] Crisis/trauma care [] Spiritual counseling [] Bereavement support [] Provided bereavement packet [] Provided Bible/devotional materials [] Provided toy/stuffed animal, coloring book to patient or family member [] Provided Communion [] Anointing/Accident [] Salvation [x] Completed spiritual assessment [] Other: Impact on Illness or Injury [] Angry [] Fearful [] Anxious [] Often cries [] Exhaustion [] Unable to work [] Unable to attend religion [] Unable to walk/stand [] Unable to read [] Unable to drive [] Unable to eat/drink [] Unable to sleep [] Unable to be with family [] Patient intubated [] Other: Summary Time spent with patient
--- NOTE | 2020-10-09 09:59 | PM.PN ---
Subjective Subjective: Interval history: Weaning down sedation today. She wakes up, tracks. She denies pain or discomfort. Denies nausea. No abdominal discomfort. Discussed with her regarding the events preceding and during hospitalization. Discussed with her findings on CT of the chest including metastatic malignancy, discussed findings on CT abdomen pelvis with severe noted obstructions in mesenteric circulation, suspected chronic, although acute could not be ruled out. No obvious sign of acute bowel ischemia. Discussed with her consideration of additional work-up of malignancy. She at this time does not yet have a clear-cut decision whether would like to pursue evaluation, would like to think about things further. She is eager to be extubated if she is able to. Vitals/I&O/Wt Last Vital Signs Temp 98.2 F 10/09/20 08:00 Pulse 94 10/09/20 08:18 Resp 22 H 10/09/20 09:44 BP 91/51 10/09/20 08:00 Pulse Ox 94 10/09/20 09:44 10/08/20 10/09/20 10/09/20 22:59 06:59 14:59 Intake Total 429.231 / 1586.049 254.816 / 1840.865 30 / 30 Output Total 3000 / 3000 275 / 3275 100 / 100 Balance -2570.769 / -1413.951 -20.184 / -1434.135 -70 / -70 Weight last 48 hrs Weight 44.537 kg Weight 53.851 kg Weight 54.431 kg Physical Exam Const: COMMON NORMALS: no acute distress NUTRITIONAL APPEARANCE: cachectic ORIENTATION/CONSCIOUSNESS: Yes patient obtunded OTHER: Intubated, awake HENMT: COMMON NORMALS: oropharynx normal Resp: COMMON NORMALS: normal respiratory effort AUSCULTATION: diminished lung sounds Cardio: COMMON NORMALS: regular rhythm, S1 normal heart sound present, S2 normal heart sound present and No murmurs present (Cardio) JUGULAR VENOUS DISTENTION: JVD RHYTHM: regular rhythm HEART SOUNDS: S1 normal heart sound present and S2 normal heart sound present GI: COMMON NORMALS: Normal to inspection, nondistended, normoactive bowel sounds present, Soft to palpation and non-tender PALPATION: Yes Soft to palpation Extremity: COMMON NORMALS: no joint enlargement and no pedal edema OTHER: Dusky right foot improved, pinky toe not blue. Extremities warm Left BKA. Neuro: COMMON NORMALS: moves all extremities Skin: COMMON NORMALS: no rashes or lesions noted GENERAL SKIN EXAM: no rashes or lesions noted Urinary Catheter Management^: Mauro: Cath Placed During This Visit: yes Reason for Continuing Indwelling Catheter: Accurate Measurement of Urinary Output in Critically Ill Patients Urinary Catheter Date of Insertion: 10/07/20 Urinary Catheter Time of Insertion: 13:45 Data : 10/09/20 05:35 10/09/20 05:35 A&P Assessment and plan (1) Acute respiratory failure: She is doing much better. Weaning trial if does well extubation. COPD exacerbation. Possibly hypoxia exacerbated by metastatic cancer. At presentation also noted small pneumothorax with improvement in size on repeat CT. Intubated by EMS. Weaning trial. COPD with exacerbation, diminished air entry, hypercapnic, respiratory acidosis. Solu-Medrol. Nebs. ET aspirate culture. With vomiting several days prior, continue empiric Zosyn. Status: Acute (2) Shock: Resolved. BP still soft, 87/52, but maintaining on her own. Weaned off pressor last night, did not requiring additional support. Waking up well. Following commands. Discussed with her , given history of COPD, possibility of adrenal insufficiency. She is continued on steroids as above for COPD exacerbation. We are not seeing adrenal hemorrhage on CT. Discussed at this time does not have appearance of overt sepsis, she remains afebrile, no leukocytosis. Empirically continue Zosyn for now as she did have vomiting, may have had some aspiration. Discussed NSTEMI. Appreciate cardiology assessment of TTE to exclude possible contribution of cardiogenic shock. Extremities are cold, but she has underlying severe peripheral arterial disease as well. Discussed the lower possibility of PE given malignancy, elevated risk. Currently already on anticoagulation. Consideration may be given to additional assessment once she is little bit more stable. Continue heparin drip. Was in positive balance, but responded well to treatment, IV Lasix push. Monitor NARESH. Repeat lactic acidc 2.6. Renal function remains stable. Liver parameters improving. Status: Acute (3) Dusky feet: Improved, pain completely resolved dusky discoloration improved. Blue discoloration of pinky toe resolved. Status: Acute (4) Acute encephalopathy: Resolved. 2/2 respiratory failure/hypercapnia, however, other causes possible including seuzire/post-ictal state, although no obvious brain mets noted but cannot be excluded on the plain CT. Hx chronic pain on opioids. Monitor mental status and for any seizure-like activity. Not known to have hisotry of cirrhosis, and significance of minimally elevated ammonia is unclear in setting of new liver changes, possibly metastatic disease. Status: Acute (5) Mass of lung: Will need additional outpatient follow-up currently not decided yet what she would like to do in terms of work-up. Follow-up with pulmonology. Tentative plan for PET scan after discharge. Status: Acute (6) Pneumothorax on right: Improving. Status: Acute (7) COPD (chronic obstructive pulmonary disease): COPD with acute exacerbation as above. Status: Acute (8) Elevated troponin: Continue Plavix, heparin drip. Appreciate cardiology recommendations. Status: Acute (9) Hypotension: Status: Acute Qualifiers: Hypotension type: other hypotension type Qualified Code(s): I95.89 - Other hypotension (10) NSTEMI (non-ST elevated myocardial infarction): Status: Acute Additional A&P Information Lactic acidosis: Improving. Chronic ischemic bowel did not have significant evidence of acute bowel ischemia. On waking up today she is able to provide review of systems. She has no abdominal pain or discomfort. She is nontender on palpation. Abdomen is soft. Left calf is trending down. Suspect she has longstanding chronic nonischemic changes, likely contributing to her poor appetite, nausea after eating. Discussed with her importance of quitting smoking. Continued additional risk factors of atherosclerosis. Will need follow-up. Vomiting: No recurrence. ports were several days until day before the admission. Constipation: Significant constipation noted on CT abdomen pelvis. Longstanding poor appetite Weight loss Smoking addiction GERD Osteoporosis History of left BKA History of depression Other chronic medical problems noted. Attestations Medical Necessity Statement*: Continue admission for assessment management of respiratory failure. Coding Level of Care Code Acute Commission Associate for [facility] Diagnoses Acute respiratory failure J96.00 Shock R57.9 Dusky feet R23.8 Acute encephalopathy G93.40 Mass of lung R91.8 Pneumothorax on right J93.9 COPD (chronic obstructive pulmonary disease) J44.9 Elevated troponin R77.8 Hypotension I95.89 Hypotension type: other hypotension type NSTEMI (non-ST elevated myocardial infarction) I21.4
--- NOTE | 2020-10-09 11:52 | PC.NURSE ---
Remaining Fentanyl wasted with Mila Dutta, RN [employer] 52cc wasted.
[2020-10-09 13:09] LABS: Partial Thromboplastin Time 72.6 SECONDS (23.9-36.7)
--- NOTE | 2020-10-09 16:27 | P.PN_ITS ---
Subjective Subjective: Interval history: The patient was seen and examined. She was extubated this morning. Doing well. I have discussed the CT scan findings of suspected lung malignancy with the patient and her . Medications: Reviewed: Yes Vitals/I&O/Wt Last Vital Signs Temp 98 F 10/09/20 16:00 Pulse 114 H 10/09/20 16:00 Resp 18 10/09/20 16:00 BP 95/57 10/09/20 16:00 Pulse Ox 95 10/09/20 16:00 10/09/20 10/09/20 10/09/20 06:59 14:59 22:59 Intake Total 254.816 / 1840.865 122.625 / 122.625 Output Total 275 / 3275 300 / 300 Balance -20.184 / -1434.135 -177.375 / -177.375 Weight last 48 hrs Weight 98 lb 3 oz Weight 118 lb 11.538 oz Physical Exam Narrative: EXAM NARRATIVE: General: Patient is awake alert and oriented, in no acute distress Neck: No JVD Respiratory: Auscultation: Reduced breath sound bilaterally, no crackles or wheezing, or rhonchi Cardiovascular: Regular rate and rhythm, S1-S2 present, distant heart sound, no peripheral edema. Abdomen: Soft, nontender, nondistended, positive bowel sound Musculoskeletal: Left below-knee amputation Skin: No rash Neuro: She is following all commands, no gross neurologic deficit Urinary Catheter Management^: Mauro: Cath Placed During This Visit: yes Reason for Continuing Indwelling Catheter: Accurate Measurement of Urinary Output in Critically Ill Patients Urinary Catheter Date of Insertion: 10/07/20 Urinary Catheter Time of Insertion: 13:45 Data : 10/09/20 05:35 10/09/20 05:35 Attestation for Other Data: I personally reviewed and interpreted the following: Other data: I have reviewed her laboratory, microbiologic and radiologic data. No evidence of pneumonia on the chest x-ray. It redemonstrated previously identified lung masses. A&P Assessment and plan (1) Acute respiratory failure with hypoxia and hypercapnia: This is a 69-year-old lady with a previous diagnosis of COPD who was b rought to the hospital after being emergently intubated by the EMS for impending respiratory failure. The patient was extubated this morning and doing well. Status: Acute (2) COPD exacerbation: The patient has significant centrilobular and paraseptal emphysema on the CT of the chest. I have reduced her steroid dose to 40 mg a day the patient The patient should be adequately covered with Levaquin. There is no evidence of aspiration pneumonia. I have discontinued the Zosyn. When she leaves the hospital, she will need triple inhaler therapy. Otherwise, I will optimize her inhaler regimen as outpatient. Status: Acute (3) NSTEMI (non-ST elevated myocardial infarction): The patient is currently on antiplatelet and antithrombotic therapy for suspected NSTEMI. Status: Acute (4) Shock: Resolved. The patient is on midodrine. I believe we will be able to get rid of that in the near future. Status: Acute (5) Mass of lung: The patient likely has metastatic lung cancer. We will get PET/CT as outpatient to identify the optimal site for biopsy and diagnosis. I have discussed this with the patient and her . I am going to sign off on the patient and I will follow up with her as outpatient. Status: Acute Attestations Medical Necessity Statement*: Will defer to the primary team Coding Level of Care Code Acute Gallery Or Museum Attendant for [facility] Diagnoses Acute respiratory failure with hypoxia and hypercapnia J96.01; J96.02 COPD exacerbation J44.1 NSTEMI (non-ST elevated myocardial infarction) I21.4 Shock R57.9 Mass of lung R91.8
--- NOTE | 2020-10-09 16:44 | PM.PN ---
Subjective Subjective: Interval history: Patient seems to be more alert and oriented. She is still intubated. She is in the process of being extubated sometime today. Telemetry has no arrhythmias. She is mostly staying in the sinus rhythm. Medications: Reviewed: Yes Medication Review Details: Current Medications Acetaminophen (Acetaminophen 325 Mg Tablet) 650 mg PO Q6H PRN PRN Reason: Mild/Mod Pain Or Temp >/= 101 Albuterol/Ipratropium (Ipratropium-Albuterol 3 Ml Neb) 3 ml INHALATION Q6H.RESPIRATORY JUAN JOSE Last Admin: 10/09/20 14:33 Dose: 3 ml Documented by: Albuterol/Ipratropium (Ipratropium-Albuterol 3 Ml Neb) 3 ml INHALATION Q4H PRN PRN Reason: SHORTNESS OF BREATH Famotidine (Famotidine 20 Mg/2 Ml Inj) 20 mg IVP Q12H JUAN JOSE Last Admin: 10/09/20 04:51 Dose: 20 mg Documented by: Heparin Sodium (Beef Lung) (Heparin 5,000 Unit/Ml Inj 1 Ml) 0 unit IV PRN PRN; Protocol PRN Reason: Heparin weight-base protocol Last Admin: 10/09/20 06:37 Dose: 2,200 unit Documented by: Levofloxacin/Dextrose (Levaquin-D5w) 750 mg in 150 mls @ 100 mls/hr IV Q24H JUAN JOSE; Protocol Last Infusion: 10/08/20 21:52 Dose: Infused Documented by: Heparin Sodium/Sodium Chloride (Heparin Drip) 25,000 unit in 500 mls @ 0 mls/hr IV .Q0M [facility]; Protocol Last Titration: 10/09/20 06:35 Dose: 10.1 unit/kg/hr, 11 mls/hr Documented by: Midodrine (Midodrine 5 Mg Tablet) 5 mg PO TID JUAN JOSE Last Admin: 10/09/20 14:27 Dose: 5 mg Documented by: Prednisone (Prednisone 20 Mg Tablet) 40 mg PO DAILY [facility] Vitals/I&O/Wt Last Vital Signs Temp 98 F 10/09/20 16:00 Pulse 114 H 10/09/20 16:00 Resp 18 10/09/20 16:00 BP 95/57 10/09/20 16:00 Pulse Ox 95 10/09/20 16:00 10/09/20 10/09/2010/09/21 06:59 14:59 22:59 Intake Total 254.816 / 1840.865 122.625 / 122.625 Output Total 275 / 3275 300 / 300 Balance -20.184 / -1434.135 -177.375 / -177.375 Weight last 48 hrs Weight 98 lb 3 oz Weight 118 lb 11.538 oz Physical Exam Narrative: EXAM NARRATIVE: GENERAL: The patient is intubated and lightly sedated. However she responds to verbal commands with yes or no. Chronically ill looking and emaciated HEENT: Minimal pallor. No icterus or lymphadenopathy. The pupils are symmetrical. Oral cavity: There are no mucous membrane lesions. NECK: Trachea appears to be central. No masses noted. No JVD or thyromegaly appreciated. No carotid bruit. RESPIRATORY: Chest is symmetrical. No intercostals muscle retraction or any accessory muscle activation. There is no chest wall tenderness. Breath sounds are heard bilaterally. Scattered coarse Rales and rhonchi. Diminished intensity of breath sounds in the bases. BREASTS: Deferred. HEART: The PMI is in the 5th left intercostals space just inside the midclavicular line. No palpable precordial events. S1 and S2 are normal. No S3 or S4 heard. No pericardial rub or any click heard. ABDOMEN: No vessel pulsations or distention. No tenderness. No organomegaly appreciated. No abdominal bruit. Bowel sounds are normally heard. : Deferred. RECTAL: Deferred. LYMPHATIC: No lymphadenopathy noted in the neck . 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 The femoral pulses are extremely weak bilaterally .The dorsalis pedis and the posterior tibial pulses are nonpalpable, on the right side. The right lower extremity is somewhat cold and clammy. Peripheral cyanosis present MUSCULOSKELETAL: No acute joint deformities or swelling SKIN: There are no significant rashes or ecchymosis. There is a skin tear near the right elbow NEUROPSYCHIATRIC: Patient is intubated. Moving all extremities Urinary Catheter Management^: Mauro: Cath Placed During This Visit: yes Reason for Continuing Indwelling Catheter: Accurate Measurement of Urinary Output in Critically Ill Patients Urinary Catheter Date of Insertion: 10/07/20 Urinary Catheter Time of Insertion: 13:45 Data : 10/10/20 02:31 10/10/20 02:31 Other Labs: Laboratory Last Values WBC 7.2 10^3/uL (4.0-10.0) 10/09/20 05:35 RBC 4.14 10^6/uL (4.1-5.3) 10/09/20 05:35 Hgb 11.9 g/dL (11.5-15.3) 10/09/20 05:35 Hct 36.9 % (37.0-47.0) L 10/09/20 05:35 MCV 89.1 fL (81-99) 10/09/20 05:35 MCH 28.7 pg (28.0-34.0) 10/09/20 05:35 MCHC 32.2 g/dL (30.0-36.0) 10/09/20 05:35 RDW 15.1 % (12.1-15.1) 10/09/20 05:35 Plt Count 142 10^3/cmm (130-400) 10/09/20 05:35 MPV 11.4 fL (7.4-10.4) H 10/09/20 05:35 Neut % (Auto) 89.0 % 10/09/20 05:35 Lymph % (Auto) 7.1 % 10/09/20 05:35 [place] % (Auto) 3.3 % 10/09/20 05:35 Eos % (Auto) 0.1 % 10/09/20 05:35 Baso % (Auto) 0.1 % 10/09/20 05:35 Neut # (Auto) 6.38 10^3/uL (1.8-7.7) 10/09/20 05:35 Lymph # (Auto) 0.5 10^3/uL (0.8-4.8) L 10/09/20 05:35 [place] # (Auto) 0.2 10^3/uL (0.2-0.9) 10/09/20 05:35 Eos # (Auto) 0.0 10^3/uL (0.0-0.8) 10/09/20 05:35 Baso # (Auto) 0.0 10^3/uL (0.0-0.1) 10/09/20 05:35 Nucleated RBC % (auto) 0 % 10/09/20 05:35 Nucleated RBCs # 0.0 /100WBC 10/09/20 05:35 PT 16.40 SECONDS (12.1-14.9) H 10/08/20 04:16 INR 1.28 (0.8-1.2) H 10/08/20 04:16 APTT 72.6 SECONDS (23.9-36.7) H D 10/09/20 12:30 Specimen Type Arterial 10/09/20 05:27 Sample Site Brachial, right 10/09/20 05:27 ABG pH 7.45 (7.35-7.45) 10/09/20 05:27 ABG pCO2 37.4 mmHg (35-45) 10/09/20 05:27 ABG pO2 71.6 mmHg (80.0-100.0) L 10/09/20 05:27 ABG HCO3 26.1 mmol/L (22-26) H 10/09/20 05:27 ABG O2 Saturation 99.9 10/07/20 13:05 ABG Base Excess 2.1 mmol/L (-2.0-2.0) H 10/09/20 05:27 Keith Test N/a 10/09/20 05:27 A-a O2 Gradient 18.5 mmHg (5-10) H 10/07/20 13:05 Hematocrit 37.8 % (37-47) 10/09/20 05:27 Hgb O2 Saturation 96.8 % (95-100) 10/07/20 13:05 Carboxyhemoglobin 2.1 %THgb (0.4-20.1) 10/07/20 13:05 Methemoglobin 1.0 % (0.4-1.5) 10/07/20 13:05 Total Hemoglobin 14.2 g/dL (12-16) 10/07/20 13:05 Sodium 138.0 mmol/L (131-143) 10/07/20 13:05 Potassium 3.4 mmol/L (3.5-5.0) L 10/07/20 13:05 Glucose 165.0 mg/dL (70-115) H 10/07/20 13:05 Ionized Calcium 1.2 mmol/L (1.1-1.4) 10/07/20 13:05 O2 Delivery Device Vent 10/09/20 05:27 Mechanical Rate 15.0 10/07/20 13:05 FiO2 35.0 % 10/09/20 05:27 Tidal Volume 0.50 10/09/20 05:27 PEEP 5.0 cmH20 10/08/20 04:35 Video Journalist ID Kevin 10/09/20 05:27 Sodium 139 mmol/L (136-145) 10/09/20 05:35 Potassium 3.7 mmol/L (3.5-5.1) 10/09/20 05:35 Chloride 107 mmol/L (98-107) 10/09/20 05:35 Carbon Dioxide 23 mmol/L (22-29) 10/09/20 05:35 Anion Gap 12.7 (5-19) 10/09/20 05:35 BUN 11 mg/dL (8-23) 10/09/20 05:35 Creatinine 0.4 mg/dL (0.5-0.9) L 10/09/20 05:35 GFR Calculation 157.8 mL/min (90-130) H 10/09/20 05:35 Glucose 94 mg/dL (65-115) 10/09/20 05:35 POC Glucose 97 mg/dL (70-110) 10/07/20 20:11 Calculated Osmolality 287 mOsm/kg (285-295) 10/09/20 05:35 Lactic Acid 5.0 mmol/L (0.5-2.2) H* 10/07/20 13:30 Lactic Acid (Sepsis) 3.5 mmol/L (0.5-2.2) H 10/07/20 15:40 Lactate 2.6 mmol/L (0.5-2.2) H 10/08/20 10:20 Calcium 8.6 mg/dL (8.5-10.5) 10/09/20 05:35 Total Bilirubin 0.6 mg/dL (0.15-1.2) 10/09/20 05:35 AST 76 U/L (0-32) H 10/09/20 05:35 ALT 132 U/L (0-33) H 10/09/20 05:35 Alkaline Phosphatase 77 IU/L (35-105) 10/09/20 05:35 Ammonia 54 umol/L (11-51) H 10/07/20 13:00 Troponin T Baseline 39 ng/L (0-10) H 10/07/20 13:00 Troponin T 120 Minute 56.07 ng/L (0-10) H 10/07/20 15:00 Delta Troponin T 17.07 ABS# (0-10) H* 10/07/20 15:00 Troponin T Hi Sens 6Hr 46.21 ng/L (0-10) H 10/07/20 20:40 Troponin T Hi Sens 6Hr Delta 7.21 ng/L (0-12) 10/07/20 20:40 NT-Pro-B Natriuret Pep 982 pg/mL (0-125) H 10/07/20 13:00 Total Protein 5.0 g/dL (6.6-8.7) L 10/09/20 05:35 Albumin 2.7 g/dL (3.5-5.2) L 10/09/20 05:35 Globulin 2.3 g/dL (1.3-4.6) 10/09/20 05:35 TSH 0.77 uIU/mL (0.27-4.20) 10/07/20 15:00 Urine Color Yellow (Yellow) 10/07/20 13:21 Urine Appearance Sl hazy (CLEAR) 10/07/20 13:21 Urine pH 5 (5-7) 10/07/20 13:21 Ur Specific Counselor 1.020 (1.005-1.030) 10/07/20 13:21 Urine Protein Neg (Negative) 10/07/20 13:21 Urine Glucose (UA) Norm (Normal) 10/07/20 13:21 Urine Ketones Negative (Negative) 10/07/20 13:21 Urine Blood Neg (Negative) 10/07/20 13:21 Urine Nitrate Negative (Negative) 10/07/20 13:21 Urine Bilirubin Neg (Negative) 10/07/20 13:21 Urine Urobilinogen Norm mg/dL (Negative) 10/07/20 13:21 Ur Leukocyte Esterase Negative (Negative) 10/07/20 13:21 Urine RBC None /hpf (0-2) 10/07/20 13:21 Urine WBC 0-4 /hpf (0-5) H 10/07/20 13:21 Ur Squamous Epith Cells 0-4 /hpf (0-5) H 10/07/20 13:21 Amorphous Sediment 1+ /hpf 10/07/20 13:21 Urine Bacteria 1+ /hpf (NONE) H 10/07/20 13:21 Urine Mucus Trace /hpf 10/07/20 13:21 Salicylates < 0.3 mg/dL (3-10) L 10/07/20 13:00 Urine Opiates Screen Negative ng/mL (Negative) 10/07/20 13:21 Ur Barbiturates Screen Negative ng/mL (Negative) 10/07/20 13:21 Ur Phencyclidine Scrn Negative ng/mL (Negative) 10/07/20 13:21 Ur Amphetamines Screen Negative ng/mL (Negative) 10/07/20 13:21 U Benzodiazepines Scrn Negative ng/mL (Negative) 10/07/20 13:21 Urine Cocaine Screen Negative ng/mL (Negative) 10/07/20 13:21 U Marijuana (THC) Screen Negative ng/mL (Negative) 10/07/20 13:21 Ethyl Alcohol < 10 mg/dL (0-10) 10/07/20 13:00 SARS-CoV-2 Ag (Rapid) Negative (Negative) 10/07/20 13:21 A&P Assessment and plan (1) Elevated troponin: In view of the abnormal EKG, and extensive peripheral artery disease, is very possible that the patient may have underlying coronary artery disease causing non-ST elevation myocardial infarction. Echocardiogram revealed relative hypokinesia of the septal segment. No other acute wall motion normalities were noted. Currently seems to be tolerating the heparin and the Plavix well. We will continue on the current medications for the time being. Consider a myocardial perfusion imaging, once her medical condition is stable Status: Acute (2) Hypotension: Currently the patient is off the vasopressors. Blood pressure seems to be staying in the normal range. Status: Acute Qualifiers: Hypotension type: other hypotension type Qualified Code(s): I95.89 - Other hypotension (3) Acute respiratory failure with hypoxia and hypercapnia: Patient is in the process of being extubated. Continue on the current measures. Status: Acute (4) PVD (peripheral vascular disease): Patient seems to have severe peripheral arterial disease. No specific symptoms at this point Status: Acute (5) Pneumothorax on right: The pneumothorax as of now seems to be small. Repeat x-ray shows the pneumothorax to be around 5% Status: Acute (6) Mass of lung: Patient may have metastatic lesions. Further evaluation and management as per the pulmonary. Status: Acute Additional A&P Information Patient may continue on the current medication for the time being. We may consider doing further cardiac work-up, once the patient is extubated and stable. Consider possible myocardial perfusion imaging tomorrow Attestations Medical Necessity Statement*: Patient requires continued hospital stay for close monitoring and further management Coding Level of Care Code Acute Inshore Undersea Warfare Officer for Chg Fwd Diagnoses Elevated troponin R77.8 Hypotension I95.89 Hypotension type: other hypotension type Acute respiratory failure with hypoxia and hypercapnia J96.01; J96.02 PVD (peripheral vascular disease) I73.9 Pneumothorax on right J93.9 Mass of lung R91.8
[2020-10-09] MEDS: heparin drip 25,000 UNIT/500 ML PREMIX 11 UNIT IV (17:09)
[2020-10-09 18:52] LABS: Partial Thromboplastin Time 47.7 SECONDS (23.9-36.7)
[2020-10-09] MEDS: levofloxacin-dextrose 5 % 750 MG/150 ML PREMIX 100 MG IV (20:42)
[2020-10-10] VITALS (30 sets, daily range): BP systolic 84–105; BP diastolic 49–68; PULSE 61–116; RESP 16–20; TEMP 36.6–36.8; O2SAT 87–100; BMI 17.4
[2020-10-10 02:53] LABS: Basophils % 0.1 %; Hematocrit 39.3 % (37.0-47.0); Hemoglobin 12.4 g/dL (11.5-15.3); Lymphocytes # 0.7 10^3/uL (0.8-4.8); Lymphocytes % 6.8 %; Mean Corpuscular HGB Conc 31.6 g/dL (30.0-36.0); Mean Corpuscular Hemoglobin 28.6 pg (28.0-34.0); Mean Corpuscular Volume 90.8 fL (81-99); Mean Platelet Volume 11.3 fL (7.4-10.4); Monocytes # 0.6 10^3/uL (0.2-0.9); Monocytes % 5.6 %; Neutrophils # 8.71 10^3/uL (1.8-7.7); Neutrophils % 86.9 %; Nucleated Red Blood Cells % 0 %; Platelet Count 147 10^3/cmm (130-400); Red Blood Count 4.33 10^6/uL (4.1-5.3); Red Cell Distribution Width 15.3 % (12.1-15.1)
[2020-10-10 03:04] LABS: Alanine Aminotransferase 111 U/L (0-33); Alkaline Phosphatase 80 IU/L (35-105); Aspartate Amino Transferase 43 U/L (0-32); Blood Urea Nitrogen 12 mg/dL (8-23); Carbon Dioxide 28 mmol/L (22-29); Chloride 107 mmol/L (98-107); Globulin 2.2 g/dL (1.3-4.6); Glomerular Filtration Rate 157.8 mL/min (90-130); Glucose 87 mg/dL (65-115); Potassium 4.6 mmol/L (3.5-5.1); Total Bilirubin 0.5 mg/dL (0.15-1.2); Total Protein 5.2 g/dL (6.6-8.7)
[2020-10-10 03:10] LABS: Partial Thromboplastin Time 81.4 SECONDS (23.9-36.7)
[2020-10-10 03:23] LABS: Anion Gap 8.6 (5-19); Sodium 139 mmol/L (136-145)
[2020-10-10 03:24] LABS: Osmolality Calculated 287 mOsm/kg (285-295)
[2020-10-10] MEDS: ipratropium-albuterol 3 mL Neb INHALATION ×2 (03:45→09:28)
[2020-10-10] MEDS: famotidine 20 mg/2 mL INJ IVP (05:13)
[2020-10-10] MEDS: predniSONE 20 mg Tablet 40 MG PO (08:01)
[2020-10-10] MEDS: midodrine 5 mg TABLET PO (08:01)
--- NOTE | 2020-10-10 08:31 | P.PN_ITS ---
Subjective Subjective: Interval history: The patient is extubated. Currently she seems to be doing okay. She is on 2 L of oxygen by nasal cannula. Oxygen saturation is around 94%. Denies any chest pain or chest tightness. No fever or chills. Has some dry cough. No other specific complaints. Medications: Reviewed: Yes Medication Review Details: Current Medications Acetaminophen (Acetaminophen 325 Mg Tablet) 650 mg PO Q6H PRN PRN Reason: Mild/Mod Pain Or Temp >/= 101 Albuterol/Ipratropium (Ipratropium-Albuterol 3 Ml Neb) 3 ml INHALATION Q6H.RESPIRATORY JUAN JOSE Last Admin: 10/10/20 03:45 Dose: 3 ml Documented by: Albuterol/Ipratropium (Ipratropium-Albuterol 3 Ml Neb) 3 ml INHALATION Q4H PRN PRN Reason: SHORTNESS OF BREATH Famotidine (Famotidine 20 Mg/2 Ml Inj) 20 mg IVP Q12H JUAN JOSE Last Admin: 10/10/20 05:13 Dose: 20 mg Documented by: Heparin Sodium (Beef Lung) (Heparin 5,000 Unit/Ml Inj 1 Ml) 0 unit IV PRN PRN; Protocol PRN Reason: Heparin weight-base protocol Last Admin: 10/09/20 20:43 Dose: 1,100 unit Documented by: Levofloxacin/Dextrose (Levaquin-D5w) 750 mg in 150 mls @ 100 mls/hr IV Q24H JUAN JOSE; Protocol Last Infusion: 10/09/20 22:50 Dose: Infused Documented by: Heparin Sodium/Sodium Chloride (Heparin Drip) 25,000 unit in 500 mls @ 0 mls/hr IV .Q0M [facility]; Protocol Last Titration: 10/10/20 04:31 Dose: 10.1 unit/kg/hr, 11 mls/hr Documented by: Midodrine (Midodrine 5 Mg Tablet) 5 mg PO TID JUAN JOSE Last Admin: 10/10/20 08:01 Dose: 5 mg Documented by: Prednisone (Prednisone 20 Mg Tablet) 40 mg PO DAILY JUAN JOSE Last Admin: 10/10/20 08:01 Dose: 40 mg Documented by: Vitals/I&O/Wt Last Vital Signs Temp 98.3 F 10/10/20 04:59 Pulse 74 10/10/20 06:00 Resp 18 10/10/20 04:59 BP 87/51 10/10/20 06:00 Pulse Ox 99 10/10/20 06:00 10/09/20 10/10/20 10/10/20 22:59 06:59 14:59 Intake Total 784.963 / 907.588 603.2 / 1510.788 50 / 50 Output Total 550 / 850 250 / 1100 Balance 234.963 / 57.588 353.2 / 410.788 50 / 50 Weight last 48 hrs Weight 98 lb 3 oz Weight 98 lb 3 oz Physical Exam Narrative: EXAM NARRATIVE: GENERAL: The patient is currently extubated. HEENT: Minimal pallor. No icterus or lymphadenopathy. The pupils are symmetrical. Oral cavity: There are no mucous membrane lesions. NECK: Trachea appears to be central. No masses noted. No JVD or thyromegaly appreciated. No carotid bruit. RESPIRATORY: Chest is symmetrical. No intercostals muscle retraction or any a ccessory muscle activation. There is no chest wall tenderness. Breath sounds are heard bilaterally. Occasional expiratory wheezes. Diminished density breath sounds in the bases. Emphysematous chest. Moderate kyphosis. BREASTS: Deferred. HEART: The PMI is in the 5th left intercostals space just inside the midclavicular line. No palpable precordial events. S1 and S2 are normal. No S3 or S4 heard. No pericardial rub or any click heard. ABDOMEN: No vessel pulsations or distention. No tenderness. No organomegaly appreciated. No abdominal bruit. Bowel sounds are normally heard. : Deferred. RECTAL: Deferred. LYMPHATIC: No lymphadenopathy noted in the neck . 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 The femoral pulses are extremely weak bilaterally .The dorsalis pedis and the posterior tibial pulses are nonpalpable, on the right side. MUSCULOSKELETAL: No acute joint deformities or swelling SKIN: There are no significant rashes or ecchymosis. There is a skin tear near the right elbow, seems healing NEUROPSYCHIATRIC: No focal motor deficit Urinary Catheter Management^: Mauro: Cath Placed During This Visit: yes Reason for Continuing Indwelling Catheter: Accurate Measurement of Urinary Output in Critically Ill Patients Urinary Catheter Date of Insertion: 10/07/20 Urinary Catheter Time of Insertion: 13:45 Data : 10/10/20 02:31 10/10/20 02:31 Other Labs: Laboratory Last Values WBC 10.0 10^3/uL (4.0-10.0) 10/10/20 02:31 RBC 4.33 10^6/uL (4.1-5.3) 10/10/20 02:31 Hgb 12.4 g/dL (11.5-15.3) 10/10/20 02:31 Hct 39.3 % (37.0-47.0) 10/10/20 02:31 MCV 90.8 fL (81-99) 10/10/20 02:31 MCH 28.6 pg (28.0-34.0) 10/10/20 02:31 MCHC 31.6 g/dL (30.0-36.0) 10/10/20 02:31 RDW 15.3 % (12.1-15.1) H 10/10/20 02:31 Plt Count 147 10^3/cmm (130-400) 10/10/20 02:31 MPV 11.3 fL (7.4-10.4) H 10/10/20 02:31 Neut % (Auto) 86.9 % 10/10/20 02:31 Lymph % (Auto) 6.8 % 10/10/20 02:31 [place] % (Auto) 5.6 % 10/10/20 02:31 Eos % (Auto) 0.0 % 10/10/20 02:31 Baso % (Auto) 0.1 % 10/10/20 02:31 Neut # (Auto) 8.71 10^3/uL (1.8-7.7) H 10/10/20 02:31 Lymph # (Auto) 0.7 10^3/uL (0.8-4.8) L 10/10/20 02:31 [place] # (Auto) 0.6 10^3/uL (0.2-0.9) 10/10/20 02:31 Eos # (Auto) 0.0 10^3/uL (0.0-0.8) 10/10/20 02:31 Baso # (Auto) 0.0 10^3/uL (0.0-0.1) 10/10/20 02:31 Nucleated RBC % (auto) 0 % 10/10/20 02:31 Nucleated RBCs # 0.0 /100WBC 10/10/20 02:31 PT 16.40 SECONDS (12.1-14.9) H 10/08/20 04:16 INR 1.28 (0.8-1.2) H 10/08/20 04:16 APTT 81.4 SECONDS (23.9-36.7) H D 10/10/20 02:31 Specimen Type Arterial 10/09/20 05:27 Sample Site Brachial, right 10/09/20 05:27 ABG pH 7.45 (7.35-7.45) 10/09/20 05:27 ABG pCO2 37.4 mmHg (35-45) 10/09/20 05:27 ABG pO2 71.6 mmHg (80.0-100.0) L 10/09/20 05:27 ABG HCO3 26.1 mmol/L (22-26) H 10/09/20 05:27 ABG O2 Saturation 99.9 10/07/20 13:05 ABG Base Excess 2.1 mmol/L (-2.0-2.0) H 10/09/20 05:27 Keith Test N/a 10/09/20 05:27 A-a O2 Gradient 18.5 mmHg (5-10) H 10/07/20 13:05 Hematocrit 37.8 % (37-47) 10/09/20 05:27 Hgb O2 Saturation 96.8 % (95-100) 10/07/20 13:05 Carboxyhemoglobin 2.1 %THgb (0.4-20.1) 10/07/20 13:05 Methemoglobin 1.0 % (0.4-1.5) 10/07/20 13:05 Total Hemoglobin 14.2 g/dL (12-16) 10/07/20 13:05 Sodium 138.0 mmol/L (131-143) 10/07/20 13:05 Potassium 3.4 mmol/L (3.5-5.0) L 10/07/20 13:05 Glucose 165.0 mg/dL (70-115) H 10/07/20 13:05 Ionized Calcium 1.2 mmol/L (1.1-1.4) 10/07/20 13:05 O2 Delivery Device Vent 10/09/20 05:27 Mechanical Rate 15.0 10/07/20 13:05 FiO2 35.0 % 10/09/20 05:27 Tidal Volume 0.50 10/09/20 05:27 PEEP 5.0 cmH20 10/08/20 04:35 County Coroner ID Kevin 10/09/20 05:27 Sodium 139 mmol/L (136-145) 10/10/20 02:31 Potassium 4.6 mmol/L (3.5-5.1) 10/10/20 02:31 Chloride 107 mmol/L (98-107) 10/10/20 02:31 Carbon Dioxide 28 mmol/L (22-29) 10/10/20 02:31 Anion Gap 8.6 (5-19) 10/10/20 02:31 BUN 12 mg/dL (8-23) 10/10/20 02:31 Creatinine 0.4 mg/dL (0.5-0.9) L 10/10/20 02:31 GFR Calculation 157.8 mL/min (90-130) H 10/10/20 02:31 Glucose 87 mg/dL (65-115) 10/10/20 02:31 POC Glucose 97 mg/dL (70-110) 10/07/20 20:11 Calculated Osmolality 287 mOsm/kg (285-295) 10/10/20 02:31 Lactic Acid 5.0 mmol/L (0.5-2.2) H* 10/07/20 13:30 Lactic Acid (Sepsis) 3.5 mmol/L (0.5-2.2) H 10/07/20 15:40 Lactate 2.6 mmol/L (0.5-2.2) H 10/08/20 10:20 Calcium 9.0 mg/dL (8.5-10.5) 10/10/20 02:31 Total Bilirubin 0.5 mg/dL (0.15-1.2) 10/10/20 02:31 AST 43 U/L (0-32) H 10/10/20 02:31 ALT 111 U/L (0-33) H 10/10/20 02:31 Alkaline Phosphatase 80 IU/L (35-105) 10/10/20 02:31 Ammonia 54 umol/L (11-51) H 10/07/20 13:00 Troponin T Baseline 39 ng/L (0-10) H 10/07/20 13:00 Troponin T 120 Minute 56.07 ng/L (0-10) H 10/07/20 15:00 Delta Troponin T 17.07 ABS# (0-10) H* 10/07/20 15:00 Troponin T Hi Sens 6Hr 46.21 ng/L (0-10) H 10/07/20 20:40 Troponin T Hi Sens 6Hr Delta 7.21 ng/L (0-12) 10/07/20 20:40 NT-Pro-B Natriuret Pep 982 pg/mL (0-125) H 10/07/20 13:00 Total Protein 5.2 g/dL (6.6-8.7) L 10/10/20 02:31 Albumin 3.0 g/dL (3.5-5.2) L 10/10/20 02:31 Globulin 2.2 g/dL (1.3-4.6) 10/10/20 02:31 TSH 0.77 uIU/mL (0.27-4.20) 10/07/20 15:00 Urine Color Yellow (Yellow) 10/07/20 13:21 Urine Appearance Sl hazy (CLEAR) 10/07/20 13:21 Urine pH 5 (5-7) 10/07/20 13:21 Ur Specific [place] 1.020 (1.005-1.030) 10/07/20 13:21 Urine Protein Neg (Negative) 10/07/20 13:21 Urine Glucose (UA) Norm (Normal) 10/07/20 13:21 Urine Ketones Negative (Negative) 10/07/20 13:21 Urine Blood Neg (Negative) 10/07/20 13:21 Urine Nitrate Negative (Negative) 10/07/20 13:21 Urine Bilirubin Neg (Negative) 10/07/20 13:21 Urine Urobilinogen Norm mg/dL (Negative) 10/07/20 13:21 Ur Leukocyte Esterase Negative (Negative) 10/07/20 13:21 Urine RBC None /hpf (0-2) 10/07/20 13:21 Urine WBC 0-4 /hpf (0-5) H 10/07/20 13:21 Ur Squamous Epith Cells 0-4 /hpf (0-5) H 10/07/20 13:21 Amorphous Sediment 1+ /hpf 10/07/20 13:21 Urine Bacteria 1+ /hpf (NONE) H 10/07/20 13:21 Urine Mucus Trace /hpf 10/07/20 13:21 Salicylates < 0.3 mg/dL (3-10) L 10/07/20 13:00 Urine Opiates Screen Negative ng/mL (Negative) 10/07/20 13:21 Ur Barbiturates Screen Negative ng/mL (Negative) 10/07/20 13:21 Ur Phencyclidine Scrn Negative ng/mL (Negative) 10/07/20 13:21 Ur Amphetamines Screen Negative ng/mL (Negative) 10/07/20 13:21 U Benzodiazepines Scrn Negative ng/mL (Negative) 10/07/20 13:21 Urine Cocaine Screen Negative ng/mL (Negative) 10/07/20 13:21 U Marijuana (THC) Screen Negative ng/mL (Negative) 10/07/20 13:21 Ethyl Alcohol < 10 mg/dL (0-10) 10/07/20 13:00 SARS-CoV-2 Ag (Rapid) Negative (Negative) 10/07/20 13:21 A&P Assessment and plan (1) Elevated troponin: In view of the abnormal EKG, and extensive peripheral artery disease, is very possible that the patient may have underlying coronary artery disease causing non-ST elevation myocardial infarction. Echocardiogram revealed relative hypokinesia of the septal segment. No other acute wall motion normalities were noted. May continue on the IV heparin and Plavix. For further evaluation of her cardiac status, a myocardial perfusion imaging would be appropriate. I discussed this with the patient and her who was at the bedside. They understood this well and consented to proceed. We will go ahead and schedule the procedure for next Tuesday. Status: Acute (2) Hypotension: Currently the patient is normotensive. Continue the current medications. Status: Acute Qualifiers: Hypotension type: other hypotension type Qualified Code(s): I95.89 - Other hypotension (3) Acute respiratory failure with hypoxia and hypercapnia: Patient is currently extubated. Respiratory status seems to be stable. She is only on 2 L of oxygen by nasal cannula. Oxygen saturations seems to be satisfactory Status: Acute (4) PVD (peripheral vascular disease): Patient seems to have severe peripheral arterial disease. No specific symptoms at this point Status: Acute (5) Pneumothorax on right: The pneumothorax, spontaneous, currently seems to have resolved. Status: Acute (6) Mass of lung: Patient may have metastatic lesions. Further evaluation and management as per the pulmonary. Status: Acute Additional A&P Information Based on the patient's clinical progress on the results of the above, further recommendations will be made. Attestations Medical Necessity Statement*: Disposition as per the primary Coding Level of Care Code Acute Sap Bw Bi Developer for Chg Fwd History Detailed Exam Detailed Medical Decision Making Moderate Complexity Diagnoses Elevated troponin R77.8 Hypotension I95.89 Hypotension type: other hypotension type Acute respiratory failure with hypoxia and hypercapnia J96.01; J96.02 PVD (peripheral vascular disease) I73.9 Pneumothorax on right J93.9 Mass of lung R91.8
--- NOTE | 2020-10-10 10:36 | PC.SOCIAL ---
IMM Updated Updated pt and family on Pg 2 IMM. No questions voiced. Provided pt a copy. Signed, dated, & timed copy in chart.
[2020-10-10 11:01] LABS: Partial Thromboplastin Time 35.3 SECONDS (23.9-36.7)
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
== END 2020-10-10 13:42 | disposition home or self-care (01) | DRG 208 ==
LOC: ER 16:16 → ICU 18:24
PROVIDERS: Hospitalist; Internal Medicine Cardiovascular Disease; Nurse Practitioner Acute Care; Admitting Provider Internal Medicine; Emergency Provider Emergency Medicine; PCP Family Medicine; Visit Provider Internal Medicine
DX: J96.02 Acute respiratory failure with hypercapnia (principal); I21.4 Non-ST elevation (NSTEMI) myocardial infarction; M80.88XA Other osteoporosis with current pathological fracture, vertebra(e), initial encounter for fracture; E87.4 Mixed disorder of acid-base balance; J93.9 Pneumothorax, unspecified; G93.40 Encephalopathy, unspecified; C78.01 Secondary malignant neoplasm of right lung; C78.02 Secondary malignant neoplasm of left lung; E46 Unspecified protein-calorie malnutrition; Z68.1 Body mass index [BMI] 19.9 or less, adult; E27.40 Unspecified adrenocortical insufficiency; J96.01 Acute respiratory failure with hypoxia; J43.2 Centrilobular emphysema; I73.9 Peripheral vascular disease, unspecified; F17.210 Nicotine dependence, cigarettes, uncomplicated; I25.10 Atherosclerotic heart disease of native coronary artery without angina pectoris; G89.29 Other chronic pain; F32.9 Major depressive disorder, single episode, unspecified; K21.9 Gastro-esophageal reflux disease without esophagitis; Z98.890 Other specified postprocedural states; Z89.512 Acquired absence of left leg below knee; C80.1 Malignant (primary) neoplasm, unspecified; K59.00 Constipation, unspecified; I95.9 Hypotension, unspecified; I27.20 Pulmonary hypertension, unspecified
CPT/HCPCS: 36415; 36416; 36600; 51702; 70450; 71045; 71260; 74174; 74176; 80051; 80053; 80306; 80307; 81001; 82140; 82330; 82803; 82805; 82962; 83605; 83880; 84443; 84484; 85025; 85610; 85730; 87426; 93005; 93306; 94002; 94003; 94640; 94664; 94799; 96372; A4570; J1644; J1650; J1940; J1956; J2250; J2543; J2920; J3010; J3490; J7030; J7512; Q9967

== ENCOUNTER 2020-10-12 14:15 | Emergency (ER) | payer MEDICARE, SELFPAY ==
[2020-10-12] VITALS (9 sets, daily range): BP systolic 119–130; BP diastolic 74–93; PULSE 74–98; RESP 16–18; TEMP 36.3; O2SAT 91–100; BMI 17.6
--- NOTE | 2020-10-12 14:20 | ECG_ITS ---
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 Measurements Intervals [place] Rate: 85 P: 76 ND: 114 QRS: 92 QRSD: 78 T: 208 QT: 413 QTc: 492 Interpretive Statements SINUS RHYTHM WITH SHORT ND INTERVAL WITH FREQUENT ECTOPIC PREMATURE COMPLEXES POSSIBLE LEFT ATRIAL ENLARGEMENT [-0.1mV P WAVE IN V1/V2] INDETERMINATE AXIS LOW QRS VOLTAGE IN PRECORDIAL LEADS [QRS DEFLECTION < 1.0 mV IN CHEST LEADS] ST DEVIATION AND MODERATE T-WAVE ABNORMALITY, CONSIDER ANTEROLATERAL ISCHEMIA [-0.1+ mV T WAVE IN V3-V6] ST DEVIATION AND MODERATE T-WAVE ABNORMALITY, CONSIDER INFERIOR ISCHEMIA [-0.1+ mV T WAVE IN II/aVF] Compared to ECG 10/07/2020 20:58:03 Indeterminate axis now present Myocardial infarct finding no longer present T-wave abnormality still present Possible ischemia still present Electronically Signed On 10-12-2020 17:03:45 CDT by Tha Gloria M.D. [email or web address]
--- NOTE | 2020-10-12 14:20 | CTR_ITS ---
PROCEDURE INFORMATION: Exam: CT Abdomen And Pelvis Without Contrast Exam date and time: 10/12/2020 2:20 PM Age: 69 years old Clinical indication: Abdominal pain; Left; Patient HX: C/O L flank pain w n/v; Additional info: Left flank pain TECHNIQUE: Imaging protocol: Computed tomography of the abdomen and pelvis without contrast. Radiation optimization: All CT scans at this facility use at least one of these dose optimization techniques: automated exposure control; mA and/or kV adjustment per patient size (includes targeted exams where dose is matched to clinical indication); or iterative reconstruction. COMPARISON: CT abdomen pelvis wo con [id number] 10/07/2020 7:49 PM RADIATION DOSE METRICS: Total DLP (mGy-cm): 436.9 FINDINGS: Pleural spaces: There is a heterogeneous mass in the right lower lobe extending to the lateral pleural surface measuring 4.7 cm in the transverse dimension. Small bilateral pleural effusions. Liver: Normal. No mass. Gallbladder and bile ducts: Gallbladder not visualized. Pancreas: Normal. No ductal dilation. Spleen: Normal. No splenomegaly. Adrenal glands: Normal. No mass. Kidneys and ureters: Normal. No hydronephrosis. Stomach and bowel: Colonic constipation and fecal impaction. The stomach is distended. Appendix: No evidence of appendicitis. Intraperitoneal space: Mild diffuse mesenteric haziness. Bowel not optimally visualized in this patient with a paucity of intraperitoneal fat and lack of oral and or IV contrast. Vasculature: Multivessel atherosclerotic disease which involves the coronary arteries. Infrarenal abdominal aorta is aneurysmal measuring 2.6 x 2.7 cm in AP/transverse dimensions. No evidence for rupture. Please note this is not optimally evaluated without IV contrast. Lymph nodes: Unremarkable. No enlarged lymph nodes. Urinary bladder: Unremarkable as visualized. Reproductive: There is a calcified fibroid in the uterus. Bones/joints: Patient is status post ORIF proximal right femur. There are degenerative changes in the visualized spine. Generalized osteopenia. Multilevel chronic compression deformities of the lower thoracic and lumbar vertebra with vertebroplasty changes from L2 through L5. Soft tissues: There is mild edema in the subcutaneous soft tissues surrounding the abdomen and pelvis. CT/CT kidney stone [id number] IMPRESSION: 1. There is a heterogeneous mass in the right lower lobe consistent with neoplasm. 2. The stomach is distended raising concern for a gastric outlet obstruction. 3. Colonic constipation with fecal impaction. 4. Infrarenal abdominal aorta is aneurysmal measuring 2.6 x 2.7 cm in AP/transverse dimensions. No evidence for rupture. Please note this is not optimally evaluated without IV contrast. Follow-up imaging in 5 years is recommended. Radiation Dose CTDIVOL = (mGy): DLP = 436.9 (mGy-cm)
--- NOTE | 2020-10-12 14:20 | XRR_ITS ---
XR/XR chest 1V portable [id number] PROCEDURE INFORMATION: Exam: XR Chest Exam date and time: 10/12/2020 2:20 PM Age: 69 years old Clinical indication: Pain; On breathing; Additional info: Chest pain TECHNIQUE: Imaging protocol: XR of the chest. Views: 1 view. COMPARISON: CR XR chest 1V portable [id number] 10/09/2020 5:54 AM FINDINGS: Lungs: The pulmonary densities at the left perihilum and lateral aspects of the mid to lower right lung are similar to the prior study. There is been interval improvement of the hazy bibasilar opacities. Pleural spaces: There is mild blunting of the left costophrenic angle. A pleural effusion cannot be excluded. Heart/Mediastinum: Unremarkable. No cardiomegaly. Vasculature: There is calcified plaque in the aortic arch. Bones/joints: Stable. IMPRESSION: There has been interval improvement of the bibasilar hazy opacities since the prior radiographs. The pulmonary densities at the left perihilum and mid to lower right lung are similar to the prior study.
--- NOTE | 2020-10-12 15:19 | PC.NURSE ---
assumed care at 1520.
[2020-10-12 15:37] LABS: Basophils % 0.1 %; Eosinophils % 0.1 %; Hematocrit 46.5 % (37.0-47.0); Hemoglobin 15.3 g/dL (11.5-15.3); Lymphocytes # 0.7 10^3/uL (0.8-4.8); Lymphocytes % 6.5 %; Mean Corpuscular HGB Conc 32.9 g/dL (30.0-36.0); Mean Corpuscular Hemoglobin 28.9 pg (28.0-34.0); Mean Corpuscular Volume 87.7 fL (81-99); Mean Platelet Volume 10.9 fL (7.4-10.4); Monocytes # 0.6 10^3/uL (0.2-0.9); Monocytes % 5.6 %; Neutrophils # 8.84 10^3/uL (1.8-7.7); Neutrophils % 87.3 %; Nucleated Red Blood Cells % 0 %; Platelet Count 201 10^3/cmm (130-400); Red Cell Distribution Width 15.2 % (12.1-15.1); White Blood Count 10.1 10^3/uL (4.0-10.0)
[2020-10-12] MEDS: morphine 4 mg/mL SDV 1 mL IVP (15:42)
[2020-10-12] MEDS: ondansetron 2 mg/ML SDV 2 mL 4 MG IVP (15:43)
[2020-10-12] MEDS: sodium chloride 0.9% 1,000 ML 999 ML IV (15:43)
[2020-10-12 15:59] LABS: Troponin(5th) Baseline 68 ng/L (0-10)
[2020-10-12 16:04] LABS: SARS Covid-2 Antigen Negative (Negative)
[2020-10-12 16:09] LABS: Alanine Aminotransferase 80 U/L (0-33); Albumin Level 3.5 g/dL (3.5-5.2); Alkaline Phosphatase 91 IU/L (35-105); Aspartate Amino Transferase 41 U/L (0-32); Blood Urea Nitrogen 7 mg/dL (8-23); Calcium 8.3 mg/dL (8.5-10.5); Carbon Dioxide 37 mmol/L (22-29); Chloride 98 mmol/L (98-107); Globulin 2.4 g/dL (1.3-4.6); Glomerular Filtration Rate 219.9 mL/min (90-130); Glucose 145 mg/dL (65-115); Osmolality Calculated 301 mOsm/kg (285-295); Sodium 145 mmol/L (136-145); Total Protein 5.9 g/dL (6.6-8.7)
[2020-10-12 16:35] LABS: Add Urine Microscopic? NO; Charge for UA Resulting for Rev
[2020-10-12 16:40] LABS: Bilirubin Urine Neg (Negative); Blood Urine Neg (Negative); Glucose Urine UA Norm (Normal); Ketones Urine 1+ (Negative); Leukocyte Esterase Urine Negative (Negative); Nitrate Urine Negative (Negative); Protein Urine Neg (Negative); Specific Gravity, Urine 1.015 (1.005-1.030); Sulfosalicylic Acid Urine Negative (Negative); Urine Appearance Clear (CLEAR); Urine Color Yellow (Yellow); Urobilinogen Urine Norm (Negative); pH Urine 8.5 (5-7)
--- NOTE | 2020-10-12 17:02 | PC.PHAR ---
PT STATES HER TAKES CARE OF HER MEDICATIONS-PTS RACHAEL VERIFIED MEDICATIONS
--- NOTE | 2020-10-12 17:29 | ED_ITS ---
Documented by User: Andres Shin MD 10/12/20 17:53 HPI - Chest Pain General: Chief Complaint: Chest Pain Stated Complaint: WEAKNESS Time Seen by Provider: 10/12/20 14:16 Source: patient History of Present Illness: HPI narrative: Patient presents with chest pain and nausea and vomiting and shortness of breath. Her pain seems to be more in the left flank than actual chest. She was recently in the hospital for respiratory distress and altered mental status. MD complaint: chest pain Associated symptoms: Reports abdominal pain, dyspnea, nausea and vomiting; Deny fever(s) Review of Systems Const: Denies: fever(s) or chills Card: Reports: chest pain Resp: Reports: dyspnea and non-productive cough GI: Reports: abdominal pain, nausea and vomiting : Reports: flank pain Musc: Denies: neck pain Skin/Breast: Denies: rash Neuro: Denies: headache(s) PFSH ED PFSH: Medical History Chronic back pain COPD (chronic obstructive pulmonary disease) Depression DJD (degenerative joint disease) GERD (gastroesophageal reflux disease) Osteoporosis PVD (peripheral vascular disease) Smoking addiction Surgical History Femur fracture H/O vertebroplasty History of femoropopliteal bypass History of left below knee amputation History of tonsillectomy Family History Other CAD (coronary artery disease) Social History Smoking and tobacco status: current every day smoker Alcohol intake: unknown Household members: spouse Marital status: Physical Exam HENMT: COMMON NORMALS: normocephalic, atraumatic, hearing grossly normal bilaterally, external ears normal, EAC's normal, TM's normal bilaterally, Normal external nose present, Normal nasal mucous membranes and turbinates present, moist oral mucous membranes, oropharynx normal, dentition normal and gingiva normal HEAD & SCALP: normocephalic and atraumatic NOSE: Normal external nose present and Normal nasal mucous membranes and turbinates present EXTERNAL EAR: Yes external ears normal EXTERNAL AUDITORY CANAL: EAC's normal TYMPANIC MEMBRANE: TM's normal bilaterally Neck/C-Spine: COMMON NORMALS: full ROM, no lymphadenopathy, supple, no meningeal signs, Thyroid normal and No carotid bruits THYROID: Thyroid normal Resp: COMMON NORMALS: normal respiratory effort, No retractions, No use of accessory muscles, clear to auscultation bilaterally and percussion normal AUSCULTATION: clear to auscultation bilaterally PERCUSSION: percussion normal GI: COMMON NORMALS: Normal to inspection, nondistended, normoactive bowel sounds present, Soft to palpation, non-tender, No hepatosplenomegaly present, no masses and no bruits PALPATION: Yes Soft to palpation and Yes No hepatosplenomegaly present : BLADDER/KIDNEY EXAM: Yes CVA tenderness on the left Back/Pelvis: GENERAL BACK: Yes CVA tenderness Extremity: COMMON NORMALS: negative for normal to inspection (Left BKA) Neuro: MENINGEAL SIGNS: Yes no meningeal signs Course Vital Signs: Vital signs: Vital Signs Temperature 97.3 F L 10/12/20 14:15 Pulse Rate 98 10/12/20 19:25 Respiratory Rate 16 10/12/20 19:25 Blood Pressure 125/93 10/12/20 19:25 Pulse Oximetry 94 10/12/20 19:25 MDM - Chest Pain MDM Narrative: Medical decision making narrative: Cachectic appearing female. Is doing much better after medications in the ER. No significant new abnormality noted. Suspect patient's pain is likely secondary to her underlying metastatic disease. If delta troponin is negative will discharge home with Zofran and pain medicine. Lab Data: Labs: Lab Results 10/12/20 10/12/20 10/12/20 Range/Units 15:30 15:30 15:30 WBC 10.1 H (4.0-10.0) 10^3/ uL RBC 5.30 (4.1-5.3) 10^6/u L Hgb 15.3 (11.5-15.3) g/dL Hct 46.5 (37.0-47.0) % MCV 87.7 (81-99) fL MCH 28.9 (28.0-34.0) pg MCHC 32.9 (30.0-36.0) g/dL RDW 15.2 H (12.1-15.1) % Plt Count 201 (130-400) 10^3/c mm MPV 10.9 H (7.4-10.4) fL Neut % (Auto) 87.3 % Lymph % (Auto) 6.5 % [place] % (Auto) 5.6 % Eos % (Auto) 0.1 % Baso % (Auto) 0.1 % Neut # (Auto) 8.84 H (1.8-7.7) 10^3/u L Lymph # (Auto) 0.7 L (0.8-4.8) 10^3/u L [place] # (Auto) 0.6 (0.2-0.9) 10^3/u L Eos # (Auto) 0.0 (0.0-0.8) 10^3/u L Baso # (Auto) 0.0 (0.0-0.1) 10^3/u L Nucleated RBC % (a uto) 0 % Nucleated RBCs # 0.0 /100WBC Sodium 145 (136-145) mmol/L Potassium 3.0 L (3.5-5.1) mmol/L Chloride 98 (98-107) mmol/L Carbon Dioxide 37 H (22-29) mmol/L Anion Gap 13.0 (5-19) BUN 7 L (8-23) mg/dL Creatinine 0.3 L (0.5-0.9) mg/dL GFR Calculation 219.9 H (90-130) mL/min Glucose 145 H (65-115) mg/dL Calculated Osmolal ity 301 H (285-295) mOsm/k g Calcium 8.3 L (8.5-10.5) mg/dL Total Bilirubin 1.0 (0.15-1.2) mg/dL AST 41 H (0-32) U/L ALT 80 H (0-33) U/L Alkaline Phosphata se 91 (35-105) IU/L Troponin T Baselin e 68 H (0-10) ng/L Troponin T 120 Min elim ira (0-10) ng/L Delta Troponin T (0-10) ABS# Total Protein 5.9 L (6.6-8.7) g/dL Albumin 3.5 (3.5-5.2) g/dL Globulin 2.4 (1.3-4.6) g/dL Urine Color (Yellow) Urine Appearance (CLEAR) Urine pH (5-7) Ur Specific Gravit y (1.005-1.030) Urine Protein (Negative) Urine Glucose (UA) (Normal) Urine Ketones (Negative) Urine Blood (Negative) Urine Nitrate (Negative) Urine Bilirubin (Negative) Prot Sulfosalicyli c Acd (Negative) Urine Urobilinogen (Negative) mg/dL Ur Leukocyte Lashaun ase (Negative) SARS-CoV-2 Ag (Rap id) (Negative) 10/12/20 10/12/20 10/12/20 Range/Units 15:30 16:23 17:33 WBC (4.0-10.0) 10^3/ uL RBC (4.1-5.3) 10^6/u L Hgb (11.5-15.3) g/dL Hct (37.0-47.0) % MCV (81-99) fL MCH (28.0-34.0) pg MCHC (30.0-36.0) g/dL RDW (12.1-15.1) % Plt Count (130-400) 10^3/c mm MPV (7.4-10.4) fL Neut % (Auto) % Lymph % (Auto) % [place] % (Auto) % Eos % (Auto) % Baso % (Auto) % Neut # (Auto) (1.8-7.7) 10^3/u L Lymph # (Auto) (0.8-4.8) 10^3/u L [place] # (Auto) (0.2-0.9) 10^3/u L Eos # (Auto) (0.0-0.8) 10^3/u L Baso # (Auto) (0.0-0.1) 10^3/u L Nucleated RBC % (a uto) % Nucleated RBCs # /100WBC Sodium (136-145) mmol/L Potassium (3.5-5.1) mmol/L Chloride (98-107) mmol/L Carbon Dioxide (22-29) mmol/L Anion Gap (5-19) BUN (8-23) mg/dL Creatinine (0.5-0.9) mg/dL GFR Calculation (90-130) mL/min Glucose (65-115) mg/dL Calculated Osmolal ity (285-295) mOsm/k g Calcium (8.5-10.5) mg/dL Total Bilirubin (0.15-1.2) mg/dL AST (0-32) U/L ALT (0-33) U/L Alkaline Phosphata se (35-105) IU/L Troponin T Baselin e (0-10) ng/L Troponin T 120 Min elim ira 62.59 H (0-10) ng/L Delta Troponin T -5.41 L (0-10) ABS# Total Protein (6.6-8.7) g/dL Albumin (3.5-5.2) g/dL Globulin (1.3-4.6) g/dL Urine Color Yellow (Yellow) Urine Appearance Clear (CLEAR) Urine pH 8.5 H (5-7) Ur Specific Gravit y 1.015 (1.005-1.030) Urine Protein Neg (Negative) Urine Glucose (UA) Norm (Normal) Urine Ketones 1+ H (Negative) Urine Blood Neg (Negative) Urine Nitrate Negative (Negative) Urine Bilirubin Neg (Negative) Prot Sulfosalicyli c Acd Negative (Negative) Urine Urobilinogen Norm (Negative) mg/dL Ur Leukocyte Lashaun ase Negative (Negative) SARS-CoV-2 Ag (Rap id) Negative (Negative) Discharge Plan Discharge Patient Disposition: Home Clinical Impression: Hypokalemia Chest pain Qualifiers: Chest pain type: unspecified Qualified Code(s): R07.9 - Chest pain, unspecified Constipation Qualifiers: Constipation type: other constipation type Qualified Code(s): K59.09 - Other constipation Vomiting Qualifiers: Vomiting type: unspecified Vomiting Intractability: non-intractable Nausea presence: with nausea Qualified Code(s): R11.2 - Nausea with vomiting, unspecified Condition: Stable Prescriptions: New Zofran 4 mg tablet 4 mg PO Q6H PRN (Reason: nausea and vomiting) Qty: 10 RF: 0 No Action clopidogrel [Plavix] 75 mg tablet 75 mg PO DAILY Qty: 30 RF: 0 levofloxacin 750 mg tablet 750 mg PO DAILY 5 Days Qty: 5 RF: 0 Eliquis 5 mg tablet 10 mg PO BID 7 Days Qty: 28 RF: 0 nicotine (polacrilex) 2 mg lozenge 4 mg mucous membrane Q2H PRN (Reason: nicotine cravings) Qty: 108 RF: 4 prednisone 20 mg Tablet See Rx Instructions .ROUTE .COMPLEX Qty: 4 RF: 0 albuterol sulfate 90 mcg/actuation aero powdr breath act w/sensor 2 inh inhalation Q4H PRN (Reason: shortness of breath) Qty: 1 RF: 0 Prilosec OTC 20 mg Tablet,Delayed Release (Dr/Ec) 20 mg PO DAILY PRN (Reason: Heartburn) RF: 0 Symbicort 80-4.5 mcg/actuation HFA aerosol inhaler 1 puff INHALATION BID RF: 0 Incruse Ellipta 62.5 mcg/actuation blister with device 1 inh INHALATION DAILY RF: 0 nicotine 21 mg/24 hr patch 24 hour 1 patch transdermal Q24H RF: 0 Discharge Orders: Discharge ED (Routine); Ordered 10/12/20 Ordered By: Saurabh Gray Referrals: Christina Alexander MD [Primary Care Provider] - 1-3 days Discharge Diet: Advance as tolerated and Clear Liquid Discharge Activity: Increase activity as tolerated Patient Instructions: Chest Pain (ED), Constipation (ED), Hypokalemia (ED), Vomiting - Adult Activity Restrictions/Additional Instructions: Return for continued vomiting liquids despite treatment, worsening pain despite treatment, fever greater than 100, worsening shortness of breath, any other concerning symptoms. Coding Level of Care Code ED [employer] Lab Manager for Chg Fwd Exam Detailed Documented by User: Saurabh Gray DO 10/12/20 22:11 HPI - Chest Pain General: Chief Complaint: Chest Pain Stated Complaint: WEAKNESS Time Seen by Provider: 10/12/20 14:16 PFSH ED PFSH: Medical History Chronic back pain COPD (chronic obstructive pulmonary disease) Depression DJD (degenerative joint disease) GERD (gastroesophageal reflux disease) Osteoporosis PVD (peripheral vascular disease) Smoking addiction Surgical History Femur fracture H/O vertebroplasty History of femoropopliteal bypass History of left below knee amputation History of tonsillectomy Family History Other CAD (coronary artery disease) Social History Smoking and tobacco status: current every day smoker Alcohol intake: unknown Household members: spouse Marital status: Course Vital Signs: Vital signs: Vital Signs Temperature 97.3 F L 10/12/20 14:15 Pulse Rate 98 10/12/20 19:25 Respiratory Rate 16 10/12/20 19:25 Blood Pressure 125/93 10/12/20 19:25 Pulse Oximetry 94 10/12/20 19:25 MDM - Chest Pain MDM Narrative: Medical decision making narrative: 69-year-old female checked out to me by Dr. Shin at shift change. This lady has some flank pain and vomiting. CT shows a distended stomach, and colonic constipation with some fecal impaction. She will be given laxative for this. She also has hypokalemia likely from vomiting. Her potassium has been repleted orally. Her delta troponin was not significant. She will be allowed discharge home. Lab Data: Labs: Lab Results 10/12/20 10/12/20 10/12/20 Range/Units 15:30 15:30 15:30 WBC 10.1 H (4.0-10.0) 10^3/ uL RBC 5.30 (4.1-5.3) 10^6/u L Hgb 15.3 (11.5-15.3) g/dL Hct 46.5 (37.0-47.0) % MCV 87.7 (81-99) fL MCH 28.9 (28.0-34.0) pg MCHC 32.9 (30.0-36.0) g/dL RDW 15.2 H (12.1-15.1) % Plt Count 201 (130-400) 10^3/c mm MPV 10.9 H (7.4-10.4) fL Neut % (Auto) 87.3 % Lymph % (Auto) 6.5 % [place] % (Auto) 5.6 % Eos % (Auto) 0.1 % Baso % (Auto) 0.1 % Neut # (Auto) 8.84 H (1.8-7.7) 10^3/u L Lymph # (Auto) 0.7 L (0.8-4.8) 10^3/u L [place] # (Auto) 0.6 (0.2-0.9) 10^3/u L Eos # (Auto) 0.0 (0.0-0.8) 10^3/u L Baso # (Auto) 0.0 (0.0-0.1) 10^3/u L Nucleated RBC % (a uto) 0 % Nucleated RBCs # 0.0 /100WBC Sodium 145 (136-145) mmol/L Potassium 3.0 L (3.5-5.1) mmol/L Chloride 98 (98-107) mmol/L Carbon Dioxide 37 H (22-29) mmol/L Anion Gap 13.0 (5-19) BUN 7 L (8-23) mg/dL Creatinine 0.3 L (0.5-0.9) mg/dL GFR Calculation 219.9 H (90-130) mL/min Glucose 145 H (65-115) mg/dL Calculated Osmolal ity 301 H (285-295) mOsm/k g Calcium 8.3 L (8.5-10.5) mg/dL Total Bilirubin 1.0 (0.15-1.2) mg/dL AST 41 H (0-32) U/L ALT 80 H (0-33) U/L Alkaline Phosphata se 91 (35-105) IU/L Troponin T Baselin e 68 H (0-10) ng/L Troponin T 120 Min elim ira (0-10) ng/L Delta Troponin T (0-10) ABS# Total Protein 5.9 L (6.6-8.7) g/dL Albumin 3.5 (3.5-5.2) g/dL Globulin 2.4 (1.3-4.6) g/dL Urine Color (Yellow) Urine Appearance (CLEAR) Urine pH (5-7) Ur Specific Gravit y (1.005-1.030) Urine Protein (Negative) Urine Glucose (UA) (Normal) Urine Ketones (Negative) Urine Blood (Negative) Urine Nitrate (Negative) Urine Bilirubin (Negative) Prot Sulfosalicyli c Acd (Negative) Urine Urobilinogen (Negative) mg/dL Ur Leukocyte Lashaun ase (Negative) SARS-CoV-2 Ag (Rap id) (Negative) 10/12/20 10/12/2021 Range/Units 15:30 16:23 17:33 WBC (4.0-10.0) 10^3/ uL RBC (4.1-5.3) 10^6/u L Hgb (11.5-15.3) g/dL Hct (37.0-47.0) % MCV (81-99) fL MCH (28.0-34.0) pg MCHC (30.0-36.0) g/dL RDW (12.1-15.1) % Plt Count (130-400) 10^3/c mm MPV (7.4-10.4) fL Neut % (Auto) % Lymph % (Auto) % [place] % (Auto) % Eos % (Auto) % Baso % (Auto) % Neut # (Auto) (1.8-7.7) 10^3/u L Lymph # (Auto) (0.8-4.8) 10^3/u L [place] # (Auto) (0.2-0.9) 10^3/u L Eos # (Auto) (0.0-0.8) 10^3/u L Baso # (Auto) (0.0-0.1) 10^3/u L Nucleated RBC % (a uto) % Nucleated RBCs # /100WBC Sodium (136-145) mmol/L Potassium (3.5-5.1) mmol/L Chloride (98-107) mmol/L Carbon Dioxide (22-29) mmol/L Anion Gap (5-19) BUN (8-23) mg/dL Creatinine (0.5-0.9) mg/dL GFR Calculation (90-130) mL/min Glucose (65-115) mg/dL Calculated Osmolal ity (285-295) mOsm/k g Calcium (8.5-10.5) mg/dL Total Bilirubin (0.15-1.2) mg/dL AST (0-32) U/L ALT (0-33) U/L Alkaline Phosphata se (35-105) IU/L Troponin T Baselin e (0-10) ng/L Troponin T 120 Min elim ira 62.59 H (0-10) ng/L Delta Troponin T -5.41 L (0-10) ABS# Total Protein (6.6-8.7) g/dL Albumin (3.5-5.2) g/dL Globulin (1.3-4.6) g/dL Urine Color Yellow (Yellow) Urine Appearance Clear (CLEAR) Urine pH 8.5 H (5-7) Ur Specific Gravit y 1.015 (1.005-1.030) Urine Protein Neg (Negative) Urine Glucose (UA) Norm (Normal) Urine Ketones 1+ H (Negative) Urine Blood Neg (Negative) Urine Nitrate Negative (Negative) Urine Bilirubin Neg (Negative) Prot Sulfosalicyli c Acd Negative (Negative) Urine Urobilinogen Norm (Negative) mg/dL Ur Leukocyte Lasha[place] ase Negative (Negative) SARS-CoV-2 Ag (Rap id) Negative (Negative) Discharge Plan Discharge Patient Disposition: Home Clinical Impression: Hypokalemia Chest pain Qualifiers: Chest pain type: unspecified Qualified Code(s): R07.9 - Chest pain, unspecified Constipation Qualifiers: Constipation type: other constipation type Qualified Code(s): K59.09 - Other constipation Vomiting Qualifiers: Vomiting type: unspecified Vomiting Intractability: non-intractable Nausea presence: with nausea Qualified Code(s): R11.2 - Nausea with vomiting, unspecified Condition: Stable Prescriptions: New Zofran 4 mg tablet 4 mg PO Q6H PRN (Reason: nausea and vomiting) Qty: 10 RF: 0 No Action clopidogrel [Plavix] 75 mg tablet 75 mg PO DAILY Qty: 30 RF: 0 levofloxacin 750 mg tablet 750 mg PO DAILY 5 Days Qty: 5 RF: 0 Eliquis 5 mg tablet 10 mg PO BID 7 Days Qty: 28 RF: 0 nicotine (polacrilex) 2 mg lozenge 4 mg mucous membrane Q2H PRN (Reason: nicotine cravings) Qty: 108 RF: 4 prednisone 20 mg Tablet See Rx Instructions .ROUTE .COMPLEX Qty: 4 RF: 0 albuterol sulfate 90 mcg/actuation aero powdr breath act w/sensor 2 inh inhalation Q4H PRN (Reason: shortness of breath) Qty: 1 RF: 0 Prilosec OTC 20 mg Tablet,Delayed Release (Dr/Ec) 20 mg PO DAILY PRN (Reason: Heartburn) RF: 0 Symbicort 80-4.5 mcg/actuation HFA aerosol inhaler 1 puff INHALATION BID RF: 0 Incruse Ellipta 62.5 mcg/actuation blister with device 1 inh INHALATION DAILY RF: 0 nicotine 21 mg/24 hr patch 24 hour 1 patch transdermal Q24H RF: 0 Discharge Orders: Discharge ED (Routine); Ordered 10/12/20 Ordered By: Saurabh Gray Referrals: Christina Alexander MD [Primary Care Provider] - 1-3 days Discharge Diet: Advance as tolerated and Clear Liquid Discharge Activity: Increase activity as tolerated Patient Instructions: Chest Pain (ED), Constipation (ED), Hypokalemia (ED), Vomiting - Adult Activity Restrictions/Additional Instructions: Return for continued vomiting liquids despite treatment, worsening pain despite treatment, fever greater than 100, worsening shortness of breath, any other concerning symptoms. Coding Level of Care Code ED [employer] Lab Manager for Ellieg Fwd Exam Detailed
[2020-10-12 18:03] LABS: Troponin 5 2HR 62.59 ng/L (0-10); Troponin 5 2HR Delta -5.41 ABS# (0-10)
[2020-10-12] MEDS: potassium chloride ER 20 mEq Tablet 40 MEQ PO (18:38)
[2020-10-12] MEDS: magnesium citrate Btl 296 mL PO (19:15)
== END 2020-10-12 19:32 | disposition home or self-care (01) ==
PROVIDERS: Emergency Medicine; Emergency Provider Emergency Medicine; PCP Family Medicine
DX: K59.09 Other constipation (principal); R07.9 Chest pain, unspecified; R11.2 Nausea with vomiting, unspecified; E87.6 Hypokalemia; Z79.02 Long term (current) use of antithrombotics/antiplatelets; Z79.01 Long term (current) use of anticoagulants; J44.9 Chronic obstructive pulmonary disease, unspecified; F17.210 Nicotine dependence, cigarettes, uncomplicated; Z20.822 Contact with and (suspected) exposure to COVID-19
CPT/HCPCS: 36415; 71045; 74176; 80053; 81003; 84484; 85025; 87426; 93005; 96361; 96374; 96375; 99284; J2270; J2405; J7030

== ENCOUNTER 2020-12-10 11:44 | Inpatient (IN) | payer MEDICARE, SELFPAY ==
[2020-12-10] VITALS (16 sets, daily range): BP systolic 91–117; BP diastolic 56–95; PULSE 83–129; RESP 15–22; TEMP 36.7–37.2; O2SAT 91–100; BMI 10.8; BMI 10.6
--- NOTE | 2020-12-10 11:57 | XR_ITS ---
WS: [id number] Portable AP upright chest, 12/10/2020 Clinical Data: dyspnea/cough Comparison: Portable chest, 10/12/2020. Findings: There are patchy bilateral pulmonary opacities have not changed. The diaphragms are flatten ed. The heart is normal. The aortic arch shows calcification and tortuosity. Vertebroplasty cement is noted in the lower thoracic and upper lumbar vertebral bodies. XR/XR chest 1V portable [id number] Impression: 1. No change in patchy bilateral pulmonary opacities consistent with bilateral pneumonia. 2. Atherosclerosis and hyperinflation.
--- NOTE | 2020-12-10 11:58 | ECG_ITS ---
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 Measurements Intervals [place] Rate: 117 P: AR: QRS: 88 QRSD: 82 T: -58 QT: 347 QTc: 484 Interpretive Statements ATRIAL FIBRILLATION WITH RAPID VENTRICULAR RESPONSE MODERATE T-WAVE ABNORMALITY, CONSIDER INFERIOR ISCHEMIA [-0.1+ mV T-WAVE IN II/aVF] Compared to ECG 10/12/2020 14:31:25 Sinus rhythm no longer present Short AR interval no longer present Indeterminate axis no longer present T-wave abnormality still present Possible ischemia still present Electronically Signed On 12-10-2020 17:03:22 CDT by Anuradha Linda M.D. [id number]
[2020-12-10 12:02] LABS: ABG PCO2 51.9 mmHg (35-45); ABG PH Result 7.39 (7.35-7.45); Alveolar-Arterial Oxygen Gradi 15.8 mmHg (5-10); Base Excess ABG 5.3 mmol/L (-2.0-2.0); Blood Gas Operator Identificat AMH; Blood Gas Sample Site Brachial, left; Blood Gas Sample Type Arterial; Carboxyhemoglobin 1.8 %THgb (0.4-20.1); HCO3 ABG 31.7 mmol/L (22-26); HGB O2 Sat 91.5 % (95-100); Ionized Calcium Level - ABG 1.3 mmol/L (1.1-1.4); Methemoglobin 0.8 % (0.4-1.5); Oxygen Device NC; Oxygen Saturation ABG 93.9; PO2 ABG 71.9 mmHg (80.0-100.0); Potassium Level - ABG 3.6 mmol/L (3.5-5.0); Total Hemoglobin 15.3 g/dL (12-16)
--- NOTE | 2020-12-10 12:07 | W.ED.SOB ---
HPI - SOB/Dyspnea General: Chief Complaint: Shortness of Breath/Dyspnea Stated Complaint: SOB, LUNG CA Time Seen by Provider: 12/10/20 11:51 History of Present Illness: HPI Narrative: 69 yo female patient was being evaluated for hospice. She is not generally on oxygen at home. EMS was called she is having increasing difficulty breathing on arrival there her oxygen saturation was 83%. She denies any chest pain. She tells me she was diagnosed just 2 months ago with a lung cancer. She has known peripheral artery disease and previously had a below the knee amputation on the right leg MD elicited complaint: shortness of breath and cough Pertinent past history: COPD Onset (ago): unknown Timing: constant Severity: mild Exacerbating factors: nothing Relieving factors: nothing Known history of: COPD and other (Lung CA) Associated symptoms: Reports chest congestion, cough, fever(s), lightheadedness and nausea; Deny abdominal pain, chest pain, diaphoresis, dizziness, extremity pain, hemoptysis, myalgias, orthopnea, palpitations, paresthesias, polydipsia, polyuria, rash, sense of impending doom, syncope or vomiting Treatment prior to arrival: none Review of Systems Const: Reports: fever(s); Denies: diaphoresis ENMT: Denies: throat pain, ear or mastoid pain, nasal discharge or nasal congestion Card: Reports: lightheadedness; Denies: chest pain, palpitations, syncope or orthopnea Resp: Reports: chest congestion; Denies: hemoptysis GI: Reports: nausea; Denies: abdominal pain or vomiting : Denies: flank pain, difficulty voiding, dysuria, urinary frequency or urinary urgency Musc: Denies: extremity pain Skin/Breast: Denies: rash or pruritus Neuro: Denies: dizziness Endo: Denies: polyuria or polydipsia PFSH ED PFSH: Medical History Chronic back pain COPD (chronic obstructive pulmonary disease) COPD exacerbation Depression DJD (degenerative joint disease) GERD (gastroesophageal reflux disease) Osteoporosis PVD (peripheral vascular disease) Smoking addiction Surgical History Femur fracture H/O vertebroplasty History of femoropopliteal bypass History of left below knee amputation History of tonsillectomy Family History Other CAD (coronary artery disease) Social History Smoking and tobacco status: current every day smoker cigarettes Packs smoked per day: 1 Years cigarettes smoked: 50 Smoking risk assessment/counseling performed?: Yes Alcohol intake: never Counseling given: No Counseling given: No Lives independently: Yes Household members: spouse Marital status: Current occupational status: disabled History of recent travel: No Current gender identity: Female Physical Exam Const: COMMON NORMALS: no acute distress GENERAL APPEARANCE: cooperative and comfortable ORIENTATION/CONSCIOUSNESS: Yes awake, Yes oriented to person, Yes oriented to place and Yes oriented to time HENMT: COMMON NORMALS: normocephalic, atraumatic and hearing grossly normal bilaterally HEAD & SCALP: normocephalic and atraumatic Neck/C-Spine: COMMON NORMALS: no JVD Resp: AUSCULTATION: rales, rhonchi, wheezes and diminished lung sounds Cardio: COMMON NORMALS: no JVD, regular rhythm and No murmurs present (Cardio) RATE: tachycardic RHYTHM: regular rhythm GI: COMMON NORMALS: Soft to palpation and No hepatosplenomegaly present AUSCULTATION: Yes normoactive bowel sounds PALPATION: Yes Soft to palpation, No Tenderness to palpation present (GI), No Guarding due to palpation present (GI) and Yes No hepatosplenomegaly present Extremity: COMMON NORMALS: normal to inspection, capillary refill normal, no clubbing, cyanosis or edema, no calf tenderness and no pedal edema Neuro: SENSORIUM/ORIENTATION: Yes oriented to person, Yes oriented to place and Yes oriented to time Skin: COMMON NORMALS: no rashes or lesions noted GENERAL SKIN EXAM: no rashes or lesions noted Course Vital Signs: Vital signs: Vital Signs Temperature 99 F 12/10/20 11:49 Pulse Rate 108 H 12/10/20 14:22 Respiratory Rate 22 H 12/10/20 14:22 Blood Pressure 117/76 12/10/20 14:22 Pulse Oximetry 96 12/10/20 14:22 MDM - SOB/Dyspnea Lab Data: Labs: Lab Results 12/10/20 12/10/20 12/10/20 Range/Units 11:50 12:00 12:00 WBC 9.2 (4.0-10.0) 10^3/ uL RBC 5.64 H (4.1-5.3) 10^6/u L Hgb 15.9 H (11.5-15.3) g/dL Hct 51.8 H (37.0-47.0) % MCV 91.8 (81-99) fl MCH 28.2 (28.0-34.0) pg MCHC 30.7 (30.0-36.0) g/dL RDW 18.4 H (12.1-15.1) % Plt Count 69 L (130-400) 10^3/c mm MPV 11.4 H (7.4-10.4) fL Neut % (Auto) 84.4 % Lymph % (Auto) 8.0 % [place] % (Auto) 6.4 % Eos % (Auto) 0.2 % Baso % (Auto) 0.3 % Neut # (Auto) 7.73 H (1.8-7.7) 10^3/u L Lymph # (Auto) 0.7 L (0.8-4.8) 10^3/u L [place] # (Auto) 0.6 (0.2-0.9) 10^3/u L Eos # (Auto) 0.0 (0.0-0.8) 10^3/u L Baso # (Auto) 0.0 (0.0-0.1) 10^3/u L Nucleated RBC % (a uto) 0 % Nucleated RBCs # 0.0 /100WBC Specimen Type Arterial Sample Site Brachial, left ABG pH 7.39 (7.35-7.45) ABG pCO2 51.9 H (35-45) mmHg ABG pO2 71.9 L (80.0-100.0) mmH g ABG HCO3 31.7 H (22-26) mmol/L ABG O2 Saturation 93.9 ABG Base Excess 5.3 H (-2.0-2.0) mmol/ L Keith Test N/a A-a O2 Gradient 15.8 H (5-10) mmHg Hematocrit 47.0 (37-47) % Hgb O2 Saturation 91.5 L (95-100) % Carboxyhemoglobin 1.8 (0.4-20.1) %THgb Methemoglobin 0.8 (0.4-1.5) % Total Hemoglobin 15.3 (12-16) g/dL Sodium 142.0 (131-143) mmol/L Potassium 3.6 (3.5-5.0) mmol/L Glucose 83.0 (70-115) mg/dL Ionized Calcium 1.3 (1.1-1.4) mmol/L O2 Delivery Device Nc O2 Liters/Min 4.0 % FiO2 36.0 % Folder Machine Operator ID Amh Lactic Acid 2.6 H (0.5-2.2) mmol/L Creatine Kinase (26-192) U/L SARS-CoV-2 Ag (Rap id) (Negative) 12/10/20 12/10/20 Range/Units 12:00 12:54 WBC (4.0-10.0) 10^3/ uL RBC (4.1-5.3) 10^6/u L Hgb (11.5-15.3) g/dL Hct (37.0-47.0) % MCV (81-99) fl MCH (28.0-34.0) pg MCHC (30.0-36.0) g/dL RDW (12.1-15.1) % Plt Count (130-400) 10^3/c mm MPV (7.4-10.4) fL Neut % (Auto) % Lymph % (Auto) % [place] % (Auto) % Eos % (Auto) % Baso % (Auto) % Neut # (Auto) (1.8-7.7) 10^3/u L Lymph # (Auto) (0.8-4.8) 10^3/u L [place] # (Auto) (0.2-0.9) 10^3/u L Eos # (Auto) (0.0-0.8) 10^3/u L Baso # (Auto) (0.0-0.1) 10^3/u L Nucleated RBC % (a uto) % Nucleated RBCs # /100WBC Specimen Type Sample Site ABG pH (7.35-7.45) ABG pCO2 (35-45) mmHg ABG pO2 (80.0-100.0) mmH g ABG HCO3 (22-26) mmol/L ABG O2 Saturation ABG Base Excess (-2.0-2.0) mmol/ L Keith Test A-a O2 Gradient (5-10) mmHg Hematocrit (37-47) % Hgb O2 Saturation (95-100) % Carboxyhemoglobin (0.4-20.1) %THgb Methemoglobin (0.4-1.5) % Total Hemoglobin (12-16) g/dL Sodium (131-143) mmol/L Potassium (3.5-5.0) mmol/L Glucose (70-115) mg/dL Ionized Calcium (1.1-1.4) mmol/L O2 Delivery Device O2 Liters/Min % FiO2 % Folder Machine Operator ID Lactic Acid (0.5-2.2) mmol/L Creatine Kinase 430 H* (26-192) U/L SARS-CoV-2 Ag (Rap id) Negative (Negative) Discharge Plan Discharge Patient Disposition: Admitted As Inpatient Clinical Impression: Metastatic primary lung cancer, Chronic respiratory failure with hypoxia, Mass of lung, Community acquired pneumonia Condition: Stable Coding Level of Care Code ED Event Planning Intern for Amy Gonzalez
[2020-12-10 12:23] LABS: Basophils % 0.3 %; Eosinophils % 0.2 %; Hematocrit 51.8 % (37.0-47.0); Hemoglobin 15.9 g/dL (11.5-15.3); Lymphocytes # 0.7 10^3/uL (0.8-4.8); Mean Corpuscular HGB Conc 30.7 g/dL (30.0-36.0); Mean Corpuscular Hemoglobin 28.2 pg (28.0-34.0); Mean Corpuscular Volume 91.8 fl (81-99); Mean Platelet Volume 11.4 fL (7.4-10.4); Monocytes # 0.6 10^3/uL (0.2-0.9); Monocytes % 6.4 %; Neutrophils # 7.73 10^3/uL (1.8-7.7); Neutrophils % 84.4 %; Nucleated Red Blood Cells % 0 %; Platelet Count 69 10^3/cmm (130-400); Red Blood Count 5.64 10^6/uL (4.1-5.3); Red Cell Distribution Width 18.4 % (12.1-15.1); White Blood Count 9.2 10^3/uL (4.0-10.0)
--- NOTE | 2020-12-10 12:42 | CT_ITS ---
WS: [id number] CTA scan of the chest with IV contrast. Additional two-dimensional coronal and sagittal reconstructio n and MIP images was performed. 12/10/2020 Clinical Data: Hypoxia history of lung cancer Comparison: CT chest, 10/07/2020. DLP: 257.[address] scans at [facility] use at least one of these dose optimization techniques: automated e xposure control; mA and/or kV adjustment per patient size (includes targeted exams where dose is matc hed to clinical indication); or iterative reconstruction. Findings: The central pulmonary arteries and peripheral pulmonary arteries fill normally with no evidence of in traluminal filling defects. No pulmonary embolic disease is noted. The numerous masses throughout the lungs have increased in size and number. The largest mass in the r ight middle lobe is 4.7 x 4.7 cm. Right lower lobe mass measures 4.3 x 5.4 cm. A retrocardiac mass no w measures 7.1 cm. A posterior left upper lobe mass now measures 3.4 cm. There are other numerous sma ller nodules throughout the lungs. Emphysematous change throughout the lungs is present. The heart si ze is normal with no pericardial effusion. No pneumonia is seen. There is no pneumothorax. The thorac ic aorta demonstrates no abnormalities or dilatations. There is no axillary or significant mediastina l adenopathy. The thyroid gland shows normal enhancement. The trachea bifurcates into the bronchi. The upper abdomen shows no change from before. The descending thoracic aorta and abdominal aorta show calcification in the wall. There is marked kyphosis with multiple compression fractures. Vertebro pl asties of the upper lumbar vertebral bodies have been performed. CT/CT angio chest PE protcl [id number] Impression: 1. Negative for pulmonary embolic disease. 2. Multiple bilateral pulmonary nodules and masses which have increased in size and number. 3. Severe kyphosis with osteopenia and prior compression fractures. 4. Severe chronic obstructive pulmonary disease.
--- NOTE | 2020-12-10 12:44 | PC.PHAR ---
PT UNABLE TO CONFIRM MEDICATION. PT'S CONFIRMED THE MEDICATIONS THAT SHE IS SUPPOSED TO TAKE, BUT HE SAID THAT THE ONLY THING SHE HAS TAKEN FOR THE LAST 8 WEEKS IS THE MORPHINE SULFATE SOLUTION. HE GIVES THAT TO HER EVERY 2 HOURS. THE PHARMACY FILLED ELIQUIS, 5 MG BID, FOR 30 DAYS. THE SAME DAY THEY FILLED PLAVIX 75 1 TAB DAILY, IT WAS FILLED FOR 90 DAYS. SHE WAS TO TAKE THE ELIQUIS, THEN START THE PLAVIX. THE STATES THAT WHEN SHE IS BETTER, HE WILL GIVE HER THOSE MEDICATIONS. I AM PUTTING IN EVERYTHING THAT SHE IS SUPPOSED TO BE TAKING.
--- NOTE | 2020-12-10 13:01 | P.HP_ITS ---
Providers/Chief Complaint Primary Care Provider: Christina Alexander MD Chief Complaint: SOB, LUNG CA History of Present Illness Sue Edwards is a 69 year old female who has advanced COPD multiple lung masses presented today for worsening shortness of breath. As per the PCP arranged home hospice for her because of her worsening shortness of breath cachexia malnourishment and declining quality of life. Today hospice nurse pablo rived and took her vitals and called 911. Her O2 saturation was in 60s. As per the she did have oxygen tank at home but she refused to use the oxygen tank she kept smoking. No recent fever, nausea, vomiting. She has not eaten in the last few weeks. Her quality of life is deteriorating she is losing weight excessively. Diagnostics in the ER revealed worsening of pulmonary masses no active consolidation, she was put on BiPAP because of increased work of breathing which would explain her high lactic acid she was given Levaquin in the ER I will give her septic bolus of 1 L, she meets criteria of sepsis with tachypnea and tachycardia, Patient does not want chest compressions or intubation I did confirm with as well who is in agreement, Versed therapist and ER nurse witnessed goals of care discussion as well Initially she stated that she is full code but changed her mind at the time of my evaluation, for now she is okay with antibiotics and BiPAP but would opt for home hospice in case further decline Review of Systems Const: Reports: chills, body aches, change in appetite, change in weight, fatigue and malaise Eyes: Denies: change in vision ENMT: Denies: throat pain Card: Denies: chest pain Resp: Reports: dyspnea and productive cough GI: Denies: abdominal pain : Denies: flank pain Musc: Reports: extremity pain; Denies: neck pain or joint redness Skin/Breast: Reports: lesions Neuro: Reports: frequent falls Psych: Reports: anxiety Endo: Denies: polyuria Harvinder/Lymph: Denies: easy bruising All/Imm: Denies: urticaria Medications/Allergies Home Medications Medication Instructions Recorded Confirmed Last Taken Type albuterol sulfate 2 inh INHALATION Q4H PRN #1 ea 10/10/20 12/10/20 10/12/20 Rx omeprazole magnesium [Prilosec OTC] 20 mg PO DAILY PRN 10/12/20 12/10/20 Unknown History budesonide-formoterol HFA 160 2 puff INHALATION BID 30 Days 10/23/20 12/10/20 Unknown Rx mcg-4.5 mcg/actuation aerosol #10.2 g inhaler apixaban [Eliquis] 5 mg PO BID 12/10/20 12/10/20 Unknown History clopidogrel [Plavix] 75 mg PO DAILY 12/10/20 12/10/20 Unknown History lorazepam 1 - 2 mg PO Q4H PRN 12/10/20 12/10/20 12/09/20 History mirtazapine 15 mg PO BEDTIME 12/10/20 12/10/20 Unknown History morphine concentrate 25 - 100 mg PO Q2H PRN 12/10/20 12/10/20 12/10/20 History nicotine 21 mg TRANSDERMAL Q24H 12/10/20 12/10/20 Unknown History nicotine (polacrilex) 4 mg PO Q2H PRN 12/10/20 12/10/20 Unknown History simvastatin 20 mg PO BEDTIME 12/10/20 12/10/20 Unknown History umeclidinium [Incruse Ellipta] 1 inh INHALATION DAILY 12/10/20 12/10/20 Unknown History Allergies Allergy/AdvReac Type Severity Reaction Status Date / Time tramadol [From Ultram] Allergy Unknown Verified 10/23/20 09:38 PFSH Acute PFSH: Medical History Chronic back pain COPD (chronic obstructive pulmonary disease) COPD exacerbation Depression DJD (degenerative joint disease) GERD (gastroesophageal reflux disease) Osteoporosis PVD (peripheral vascular disease) Smoking addiction Surgical History Femur fracture H/O vertebroplasty History of femoropopliteal bypass History of left below knee amputation History of tonsillectomy Family History Other CAD (coronary artery disease) Social History Smoking and tobacco status: current every day smoker cigarettes Packs smoked per day: 1 Years cigarettes smoked: 50 Smoking risk assessment/counseling performed?: Yes Alcohol intake: never Counseling given: No Counseling given: No Lives independently: Yes Household members: spouse Marital status: Current occupational status: disabled History of recent travel: No Current gender identity: Female Vitals/I&O/Wt Last Vital Signs Temp 99 F 12/10/20 11:49 Pulse 98 12/10/20 12:41 Resp 18 12/10/20 11:49 BP 117/85 12/10/20 12:41 Pulse Ox 96 12/10/20 12:41 Weight last 48 hrs Weight 27.669 kg Physical Exam Narrative: EXAM NARRATIVE: female cachectic malnourished Extreme muscle mass loss Left BKA Onychomycosis, arterial ischemic ulcers noted on right leg Venous stasis dermatitis Cachectic malnourished Currently on BiPAP 03/09 FiO2 40% respiratory rate 12 Able to communicate and tell me about above HPI Has conversational dyspnea Extremely dry mouth EOMI, PERRLA No active focal signs Appearing Data : 12/10/20 12:00 Micro: Microbiology 12/10/20 12:00 Blood Culture - Preliminary Blood SPECIMEN COLLECTED 12/10/20 12:08 Blood Culture - Preliminary Blood SPECIMEN COLLECTED A&P Assessment and plan (1) Community acquired pneumonia: Status: Acute (2) Acute on chronic respiratory failure with hypoxia: Status: Acute (3) COPD (chronic obstructive pulmonary disease): Status: Acute (4) Metastatic primary lung cancer: Status: Acute (5) Mass of lung: Status: Acute (6) Malnourished: Status: Acute (7) Sepsis: Status: Acute Additional A&P Information Sepsis due to pneumonia with underlying cancer Criteria met with tachypnea, tachycardia, lactic acidosis We will start ceftriaxone and azithromycin Procalcitonin requested Currently requiring BiPAP she has conversational dyspnea at high risk for deterioration Does not want chest compressions or intubation In case of further decline in her clinical status patient and her both agreeable with hospice measures On chronic hypoxia currently on BiPAP at home she was noncompliant with oxygen as per the Still smoking Pulmonary imaging reveals worsening of underlying pulmonary masses She does have compression fractures as well from previous imaging She does not have histopathological diagnosis Malnourished: Unfortunately cannot put her on advanced diet because of use of BiPAP to avoid risk of emesis Guarded prognosis agreeable with home hospice, will consult case supervisor DNR/DNI Liquid diet Attestations 2 Medical Necessity Statement*: Anticipating stay in the hospital because more than 2 midnights Time Spent in Patient Care: Greater than 35 minutes Coding Level of Care Code Acute Executive Director for Ellieg Fwd Diagnoses Community acquired pneumonia J18.9 Acute on chronic respiratory failure with hypoxia J96.21 COPD (chronic obstructive pulmonary disease) J44.9 Metastatic primary lung cancer C34.90 Mass of lung R91.8 Malnourished E46 Sepsis A41.9
[2020-12-10] MEDS: levofloxacin-dextrose 5 % 500 MG/100 ML PREMIX 100 MG IV (13:09)
[2020-12-10 13:22] LABS: SARS Covid-2 Antigen Negative (Negative)
[2020-12-10 13:41] LABS: Lactic Sepsis W/Reflex 2.6 mmol/L (0.5-2.2)
--- NOTE | 2020-12-10 13:58 | ECG_ITS ---
[facility] Test Date: 2020-12-10 Pat Name: Sue Edwards Department: Room: Gender: Female Ship Engineer: : 1950 Requested By: Jamaal Banks Order Number: [id number] Celia MD: Anuradha Linda M.D. Measurements Intervals [place] Rate: 104 P: -5 ID: [id number] QRS: 69 QRSD: 82 T: -7 QT: 352 QTc: 464 Interpretive Statements POSSIBLE SINUS TACHYCARDIA WITH SHORT ID INTERVAL WITH OCCASIONAL VENTRICULAR PREMATURE COMPLEXES MODERATE T-WAVE ABNORMALITY, CONSIDER INFERIOR ISCHEMIA [-0.1+ mV T-WAVE IN II/aVF] ARTIFACT Compared to ECG 12/10/2020 12:30:37 Ventricular premature complex(es) now present Short ID interval now present T-wave abnormality still present Possible ischemia still present Electronically Signed On 12-11-2020 9:30:03 CDT by Anuradha Linda M.D. [id number]
[2020-12-10 14:32] LABS: Creatine Phosphokinase 430 U/L (26-192)
[2020-12-10] MEDS: iohexol 350 mg/mL 100 mL Btl IV (14:41)
[2020-12-10 15:16] LABS: Reflex Lactate Order REFLEX LACTIC ORDERD
[2020-12-10 15:24] LABS: Troponin(5th) Baseline 26 ng/L (0-10)
[2020-12-10 15:55] LABS: Troponin 5 2HR 21.94 ng/L (0-10)
[2020-12-10 16:07] LABS: Troponin 5 2HR Delta -4.06 ABS# (0-10)
--- NOTE | 2020-12-10 16:56 | PC.RESP ---
Dr Rivers in room to talk with patient about DNR status. Pt states she does not want to be intubated or any other measures done. Pt wants to be DNR/DNI.
--- NOTE | 2020-12-10 17:58 | ECG_ITS ---
[facility] Test Date: 2020-12-10 Pat Name: Sue Edwards Department: Room: ED Gender: Female Drafter Plumbing: : 1950 Requested By: Jamaal Banks Order Number: [id number] Celia MD: Anuradha Linda M.D. Measurements Intervals [place] Rate: 102 P: 70 [place]: 101 QRS: 96 QRSD: 85 T: -62 QT: 327 QTc: 427 Interpretive Statements SINUS TACHYCARDIA WITH SHORT [place] INTERVAL BORDERLINE RIGHT AXIS DEVIATION [QRS AXIS > 90] NONSPECIFIC ST & T-WAVE ABNORMALITY Compared to ECG 12/10/2020 15:48:00 Ventricular premature complex(es) no longer present Possible ischemia no longer present T-wave abnormality still present Electronically Signed On 12-11-2020 9:27:03 CDT by Anuradha Linda M.D. [id number]
[2020-12-10 18:40] LABS: Procalcitonin 0.15 ng/mL (0-0.5)
[2020-12-10 19:03] LABS: Troponin 5 6HR 21.63 ng/L (0-10)
[2020-12-10 19:04] LABS: Troponin 5 6HR Delta -4.37 ng/L (0-12)
[2020-12-10 19:08] LABS: Lactic Acid level (Lactate) 2.3 mmol/L (0.5-2.2)
[2020-12-10] MEDS: mirtazapine 15 mg Tablet PO (21:49)
[2020-12-10] MEDS: apixaban 5 mg Tablet PO (21:49)
[2020-12-10] MEDS: sodium chloride 0.9% 1,000 ML 999 ML IV (21:49)
[2020-12-10] MEDS: nicotine 21 mg Patch 1 PATCH TRANSDERMA (22:58)
[2020-12-11] VITALS (10 sets, daily range): BP systolic 94–106; BP diastolic 55–62; PULSE 97–119; RESP 14–24; TEMP 36.5–37.2; O2SAT 87–100
[2020-12-11 05:52] LABS: Basophils % 0.1 %; Hematocrit 44.2 % (37.0-47.0); Hemoglobin 13.9 g/dL (11.5-15.3); Lymphocytes # 0.3 10^3/uL (0.8-4.8); Lymphocytes % 3.8 %; Mean Corpuscular HGB Conc 31.4 g/dL (30.0-36.0); Mean Corpuscular Hemoglobin 28.5 pg (28.0-34.0); Mean Corpuscular Volume 90.8 fl (81-99); Mean Platelet Volume 11.7 fL (7.4-10.4); Monocytes # 0.4 10^3/uL (0.2-0.9); Monocytes % 4.8 %; Neutrophils # 7.44 10^3/uL (1.8-7.7); Neutrophils % 90.8 %; Nucleated Red Blood Cells % 0 %; Platelet Count 48 10^3/cmm (130-400); Red Blood Count 4.87 10^6/uL (4.1-5.3); Red Cell Distribution Width 17.4 % (12.1-15.1); White Blood Count 8.2 10^3/uL (4.0-10.0)
[2020-12-11 06:12] LABS: Albumin Level 2.5 g/dL (3.5-5.2); Alkaline Phosphatase 60 IU/L (35-105); Chloride 101 mmol/L (98-107); Potassium 3.5 mmol/L (3.5-5.1); Sodium 142 mmol/L (136-145)
[2020-12-11 06:45] LABS: Alanine Aminotransferase 20 U/L (0-33); Anion Gap 16.5 (5-19); Aspartate Amino Transferase 34 U/L (0-32); Blood Urea Nitrogen 17 mg/dL (8-23); Carbon Dioxide 28 mmol/L (22-29); Globulin 2.9 g/dL (1.3-4.6); Glomerular Filtration Rate 219.9 mL/min (90-130); Glucose 115 mg/dL (65-115); Osmolality Calculated 296 mOsm/kg (285-295); Total Bilirubin 0.6 mg/dL (0.15-1.2); Total Protein 5.4 g/dL (6.6-8.7)
[2020-12-11 07:23] LABS: Calcium 8.5 mg/dL (8.5-10.5)
[2020-12-11] MEDS: clopidogrel 75 mg Tablet PO (08:45)
[2020-12-11] MEDS: apixaban 5 mg Tablet PO ×2 (08:45→16:31)
[2020-12-11] MEDS: cefTRIAXone 1,000 MG in sodium chloride 0.9% (plus) 50 ML 100 MG IV (08:46)
[2020-12-11] MEDS: morphine 4 mg/mL SDV 1 mL 2 MG IVP ×2 (08:52→16:31)
--- NOTE | 2020-12-11 09:10 | PC.NURSE ---
Notified Dr. Blake that unable to doppler DP or PT pulses and left foot purple/cold to the touch.
[2020-12-11] MEDS: azithromycin 250 mg Tablet 500 MG PO (10:22)
--- NOTE | 2020-12-11 10:32 | PC.CHAP ---
Pastoral Care Encounter/Spiritual Assessment Type of Contact [] Declined hardwood faller visit [] Patient/Family/Request visit [] Outpatient visit [] Follow-up visit [] Physician referral [] Code/Alert [] Routine visit [] Staff referral [] Actively dying [] Patient sleeping [] Family support [] [] Out of room [] Palliative care [] [] Receiving care in room [] Pre-surgical visit [] Trauma [] Long length of stay [] ICU visit [x] Other: covid Relational/Emotional Strength [] Patient feels connected with others/family/visitors/staff [] Distress [] Loneliness/isolation [] Abandonment Spirituality of Patient [] Person of Meagan [] Attends Taoism of their Meagan [] Believes in Prayer [] Reads Bible or Zoroastrian materials [] There are Spiritual issues to be addressed Executive Staff Assistant Interventions [] Prayer [] Active listening [] Non-anxious presence [] Spiritual/emotional support [] Crisis/trauma care [] Spiritual counseling [] Bereavement support [] Provided bereavement packet [] Provided Bible/devotional materials [] Provided toy/stuffed animal, coloring book to patient or family member [] Provided Communion [] Anointing/[place] [] Salvation [] Completed spiritual assessment [] Other: Impact on Illness or Injury [] Angry [] Fearful [] Anxious [] Often cries [] Exhaustion [] Unable to work [] Unable to attend adventist [] Unable to walk/stand [] Unable to read [] Unable to drive [] Unable to eat/drink [] Unable to sleep [] Unable to be with family [] Patient intubated [] Other: Summary covid Time spent with patient 5 mins
--- NOTE | 2020-12-11 11:40 | PM.DCS ---
Discharge Providers Date of Admission: 12/10/20 13:34 Date of Discharge: December 11, 2020 Attending Provider at Admission: Jennifer Rivers MD Attending Provider at Discharge: Jennifer Rivers MD Primary Care Provider: Christina Alexander MD Diagnoses at Discharge Discharge Diagnosis (1) Community acquired pneumonia: Status: Acute (2) Acute on chronic respiratory failure with hypoxia: Status: Acute (3) COPD (chronic obstructive pulmonary disease): Status: Acute (4) Metastatic primary lung cancer: Status: Acute (5) Mass of lung: Status: Acute (6) Malnourished: Status: Acute (7) Sepsis: Status: Acute Reason for Visit Reason for Visit: SOB, LUNG CA Hospital Course Hospital Course History of Present Illness Sue Edwards is a 69 year old female who has advanced COPD multiple lung masses presented today for worsening shortness of breath. As per the PCP arranged home hospice for her because of her worsening shortness of breath cachexia malnourishment and declining quality of life. Today hospice nurse arrived and took her vitals and called 911. Her O2 saturation was in 60s. As per the she did have oxygen tank at home but she refused to use the oxygen tank she kept smoking. No recent fever, nausea, vomiting. She has not eaten in the last few weeks. Her quality of life is deteriorating she is losing weight excessively. Diagnostics in the ER revealed worsening of pulmonary masses no active consolidation, she was put on BiPAP because of increased work of breathing which would explain her high lactic acid she was given Levaquin in the ER I will give her septic bolus of 1 L, she meets criteria of sepsis with tachypnea and tachycardia, Patient does not want chest compressions or intubation I did confirm with as well who is in agreement, Versed therapist and ER nurse witnessed goals of care discussion as well Initially she stated that she is full code but changed her mind at the time of my evaluation, for now she is okay with antibiotics and BiPAP but would opt for home hospice in case further decline Hospital course Patient was admitted for management of acute on chronic hypoxic respiratory failure she was requiring BiPAP in the ER however next day patient was saturating well on room air, I requested home O2 evaluation. Patient is requesting to be discharged home as she already has home hospice service set up. sporting goods sales manager is diligently working to get in touch with the home hospice service company. She is fine to get in touch with the PCP office. I will give her liquid morphine as well. Patient was instructed not to smoke use oxygen for her symptoms relief. Her CT scan did not show active consolidation she did require antibiotics in the ER, she remained afebrile, no leukocytosis. Cultures negative to date. She will be discharged on azithromycin. Cold right lower extremity, she is not a surgical candidate because of severe end-stage COPD, patient does not want aggressive intervention, she was counseled that if she keeps smoking she might lose her right leg as well. notified and updated. Physical Exam Narrative: EXAM NARRATIVE: female cachectic malnourished Extreme muscle mass loss Left BKA Onychomycosis, arterial ischemic ulcers noted on right leg Venous stasis dermatitis Cachectic malnourished Currently on room air saturating well Able to communicate Extremely dry mouth EOMI, PERRLA No active focal signs Discharge Data Data Completed and Pending: Completed Studies During Hospitalization Category Date Time Status CT angio chest PE protcl [id number] Stat Cat Scan 12/10/20 12:42 Completed XR chest 1V yuliya ble [id number] Stat Exams 12/10/20 11:57 Completed Pending at discharge Category Date Time Status ABG FULL [Arteria l Blood Gas Full] Routine Lab 12/10/20 13:00 Received Blood Culture Sta t Lab 12/10/20 12:00 Results Coronavirus Test [facility] ne Lab 12/10/20 12:54 Received Urinalysis Stat Lab 12/10/20 11:58 Uncollected Labs from last 24 hours 12/11/20 12/11/20 12/10/20 05:09 05:09 18:28 WBC 8.2 RBC 4.87 Hgb 13.9 Hct 44.2 MCV 90.8 MCH 28.5 MCHC 31.4 RDW 17.4 H Plt Count 48 L D MPV 11.7 H Neut % (Auto) 90.8 Lymph % (Auto) 3.8 [place] % (Auto) 4.8 Eos % (Auto) 0.0 Baso % (Auto) 0.1 Neut # (Auto) 7.44 Lymph # (Auto) 0.3 L [place] # (Auto) 0.4 Eos # (Auto) 0.0 Baso # (Auto) 0.0 Nucleated RBC % (a uto) 0 Nucleated RBCs # 0.0 Specimen Type Sample Site ABG pH ABG pCO2 ABG pO2 ABG HCO3 ABG O2 Saturation ABG Base Excess Keith Test A-a O2 Gradient Hematocrit Hgb O2 Saturation Carboxyhemoglobin Methemoglobin Total Hemoglobin Sodium 142 Potassium 3.5 Glucose 115 Ionized Calcium O2 Delivery Device O2 Liters/Min FiO2 Respiratory Equipment Assistant ID Chloride 101 Carbon Dioxide 28 Anion Gap 16.5 BUN 17 Creatinine 0.3 L GFR Calculation 219.9 H Calculated Osmolal ity 296 H Lactic Acid Lactic Acid (Sepsi s) 2.3 H Calcium 8.5 Total Bilirubin 0.6 AST 34 H ALT 20 Alkaline Phosphata se 60 Creatine Kinase Troponin T Baselin e Troponin T 120 Min chipewwa Delta Troponin T Troponin T Hi Sens 6Hr Troponin T Hi Sens 6Hr Delta Total Protein 5.4 L Albumin 2.5 L Globulin 2.9 Procalcitonin Nasal/Oral COVID-1 9 PCR SARS-CoV-2 Ag (Rap id) 12/10/20 12/10/20 12/10/20 18:28 15:29 15:29 WBC RBC Hgb Hct MCV MCH MCHC RDW Plt Count MPV Neut % (Auto) Lymph % (Auto) [place] % (Auto) Eos % (Auto) Baso % (Auto) Neut # (Auto) Lymph # (Auto) [place] # (Auto) Eos # (Auto) Baso # (Auto) Nucleated RBC % (a uto) Nucleated RBCs # Specimen Type Sample Site ABG pH ABG pCO2 ABG pO2 ABG HCO3 ABG O2 Saturation ABG Base Excess Keith Test A-a O2 Gradient Hematocrit Hgb O2 Saturation Carboxyhemoglobin Methemoglobin Total Hemoglobin Sodium Potassium Glucose Ionized Calcium O2 Delivery Device O2 Liters/Min FiO2 Respiratory Equipment Assistant ID Chloride Carbon Dioxide Anion Gap BUN Creatinine GFR Calculation Calculated Osmolal ity Lactic Acid Lactic Acid (Sepsi s) Calcium Total Bilirubin AST ALT Alkaline Phosphata se Creatine Kinase Troponin T Baselin e Troponin T 120 Min chipewwa 21.94 H Delta Troponin T -4.06 L Troponin T Hi Sens 6Hr 21.63 H Troponin T Hi Sens 6Hr Delta -4.37 L Total Protein Albumin Globulin Procalcitonin 0.15 Nasal/Oral COVID-1 9 PCR SARS-CoV-2 Ag (Rap id) 12/10/20 12/10/20 12/10/20 13:00 12:54 12:54 WBC RBC Hgb Hct MCV MCH MCHC RDW Plt Count MPV Neut % (Auto) Lymph % (Auto) [place] % (Auto) Eos % (Auto) Baso % (Auto) Neut # (Auto) Lymph # (Auto) [place] # (Auto) Eos # (Auto) Baso # (Auto) Nucleated RBC % (a uto) Nucleated RBCs # Specimen Type Pending Sample Site Pending ABG pH Pending ABG pCO2 Pending ABG pO2 Pending ABG HCO3 Pending ABG O2 Saturation Pending ABG Base Excess Pending Keith Test Pending A-a O2 Gradient Pending Hematocrit Pending Hgb O2 Saturation Pending Carboxyhemoglobin Pending Methemoglobin Pending Total Hemoglobin Pending Sodium Pending Potassium Pending Glucose Pending Ionized Calcium Pending O2 Delivery Device Pending O2 Liters/Min FiO2 Respiratory Equipment Assistant ID Pending Chloride Carbon Dioxide Anion Gap BUN Creatinine GFR Calculation Calculated Osmolal ity Lactic Acid Lactic Acid (Sepsi s) Calcium Total Bilirubin AST ALT Alkaline Phosphata se Creatine Kinase Troponin T Baselin e Troponin T 120 Min chipewwa Delta Troponin T Troponin T Hi Sens 6Hr Troponin T Hi Sens 6Hr Delta Total Protein Albumin Globulin Procalcitonin Nasal/Oral COVID-1 9 PCR Pending SARS-CoV-2 Ag (Rap id) Negative 12/10/20 12/10/20 12/10/20 12:00 12:00 12:00 WBC 9.2 RBC 5.64 H Hgb 15.9 H Hct 51.8 H MCV 91.8 MCH 28.2 MCHC 30.7 RDW 18.4 H Plt Count 69 L MPV 11.4 H Neut % (Auto) 84.4 Lymph % (Auto) 8.0 [place] % (Auto) 6.4 Eos % (Auto) 0.2 Baso % (Auto) 0.3 Neut # (Auto) 7.73 H Lymph # (Auto) 0.7 L [place] # (Auto) 0.6 Eos # (Auto) 0.0 Baso # (Auto) 0.0 Nucleated RBC % (a uto) 0 Nucleated RBCs # 0.0 Specimen Type Sample Site ABG pH ABG pCO2 ABG pO2 ABG HCO3 ABG O2 Saturation ABG Base Excess Keith Test A-a O2 Gradient Hematocrit Hgb O2 Saturation Carboxyhemoglobin Methemoglobin Total Hemoglobin Sodium Potassium Glucose Ionized Calcium O2 Delivery Device O2 Liters/Min FiO2 Respiratory Equipment Assistant ID Chloride Carbon Dioxide Anion Gap BUN Creatinine GFR Calculation Calculated Osmolal ity Lactic Acid Lactic Acid (Sepsi s) Calcium Total Bilirubin AST ALT Alkaline Phosphata se Creatine Kinase 430 H* Troponin T Baselin e 26 H Troponin T 120 Min chipewwa Delta Troponin T Troponin T Hi Sens 6Hr Troponin T Hi Sens 6Hr Delta Total Protein Albumin Globulin Procalcitonin Nasal/Oral COVID-1 9 PCR SARS-CoV-2 Ag (Rap id) 12/10/20 12/10/20 12:00 11:50 WBC RBC Hgb Hct MCV MCH MCHC RDW Plt Count MPV Neut % (Auto) Lymph % (Auto) [place] % (Auto) Eos % (Auto) Baso % (Auto) Neut # (Auto) Lymph # (Auto) [place] # (Auto) Eos # (Auto) Baso # (Auto) Nucleated RBC % (a uto) Nucleated RBCs # Specimen Type Arterial Sample Site Brachial, left ABG pH 7.39 ABG pCO2 51.9 H ABG pO2 71.9 L ABG HCO3 31.7 H ABG O2 Saturation 93.9 ABG Base Excess 5.3 H Keith Test N/a A-a O2 Gradient 15.8 H Hematocrit 47.0 Hgb O2 Saturation 91.5 L Carboxyhemoglobin 1.8 Methemoglobin 0.8 Total Hemoglobin 15.3 Sodium 142.0 Potassium 3.6 Glucose 83.0 Ionized Calcium 1.3 O2 Delivery Device Nc O2 Liters/Min 4.0 FiO2 36.0 Respiratory Equipment Assistant ID Amh Chloride Carbon Dioxide Anion Gap BUN Creatinine GFR Calculation Calculated Osmolal ity Lactic Acid 2.6 H Lactic Acid (Sepsi s) Calcium Total Bilirubin AST ALT Alkaline Phosphata se Creatine Kinase Troponin T Baselin e Troponin T 120 Min chipewwa Delta Troponin T Troponin T Hi Sens 6Hr Troponin T Hi Sens 6Hr Delta Total Protein Albumin Globulin Procalcitonin Nasal/Oral COVID-1 9 PCR SARS-CoV-2 Ag (Rap id) Vitals: Last Vital Signs Temp 98.3 F 12/11/20 11:28 Pulse 111 H 12/11/20 11:28 Resp 24 H 12/11/20 11:28 BP 94/55 12/11/20 11:28 Pulse Ox 87 L 12/11/20 11:28 Discharge Plan Discharge Patient Disposition: Hospice - Home Condition: Stable Prescriptions: New morphine 10 mg/5 mL solution 7.5 mg PO Q3H PRN (Reason: home hospice) Qty: 150 RF: 0 azithromycin 500 mg tablet 500 mg PO DAILY 5 Days Qty: 5 RF: 0 Continued budesonide-formoterol [Symbicort] 160-4.5 mcg/actuation HFA aerosol inhaler 2 puff inhalation BID 30 Days Qty: 10.2 RF: 2 morphine concentrate 100 mg/5 mL (20 mg/mL) solution 25 - 100 mg PO Q2H PRN (Reason: Pain) RF: 0 simvastatin 20 mg tablet 20 mg PO BEDTIME RF: 0 nicotine 21 mg/24 hr patch 24 hour 21 mg transdermal Q24H RF: 0 mirtazapine 15 mg tablet 15 mg PO BEDTIME RF: 0 lorazepam 2 mg/mL concentrate 1 - 2 mg PO Q4H PRN (Reason: Anxiety) RF: 0 nicotine (polacrilex) 4 mg lozenge 4 mg PO Q2H PRN (Reason: UNKNOWN) RF: 0 Eliquis 5 mg tablet 5 mg PO BID RF: 0 Incruse Ellipta 62.5 mcg/actuation blister with device 1 inh INHALATION DAILY RF: 0 Plavix 75 mg tablet 75 mg PO DAILY RF: 0 albuterol sulfate 90 mcg/actuation aero powdr breath act w/sensor 2 inh inhalation Q4H PRN (Reason: shortness of breath) Qty: 1 RF: 0 omeprazole magnesium [Prilosec OTC] 20 mg Tablet,Delayed Release (Dr/Ec) 20 mg PO DAILY PRN (Reason: Heartburn) RF: 0 Discharge Orders: Discharge Order (Routine); Ordered 12/11/20 Ordered By: Jennifer Rivers Referrals: Christina Alexander MD [Primary Care Provider] - Discharge Diet: Cardiac Discharge Activity: Use walker/crutches as instructed Patient Instructions: Azithromycin (By mouth), Morphine, Slow Release (By mouth), Using Oxygen at Home (GEN), Hypoxia (GEN) Discharge Attestations Time Spent in Discharge Care*: less than 30 min Quality Metrics Clinical Quality Measures During this hospital stay, did patient experience: None Coding Level of Care Code Acute Chg FW DC note Diagnoses Community acquired pneumonia J18.9 Acute on chronic respiratory failure with hypoxia J96.21 COPD (chronic obstructive pulmonary disease) J44.9 Metastatic primary lung cancer C34.90 Mass of lung R91.8 Malnourished E46 Sepsis A41.9
[2020-12-11 14:39] LABS: ABG PCO2 57.8 mmHg (35-45); ABG PH Result 7.36 (7.35-7.45); Alveolar-Arterial Oxygen Gradi 18.6 mmHg (5-10); Arterial Blood Gas Hematocrit 48.6 % (37-47); Base Excess ABG 5.1 mmol/L (-2.0-2.0); Blood Gas Operator Identificat AMH; Blood Gas Sample Site Brachial, left; Blood Gas Sample Type Arterial; Carboxyhemoglobin 1.5 %THgb (0.4-20.1); HCO3 ABG 32.6 mmol/L (22-26); HGB O2 Sat 95.8 % (95-100); Ionized Calcium Level - ABG 1.2 mmol/L (1.1-1.4); Methemoglobin 0.7 % (0.4-1.5); Oxygen Device BIPAP; Potassium Level - ABG 3.8 mmol/L (3.5-5.0); Total Hemoglobin 15.9 g/dL (12-16)
[2020-12-11 15:14] LABS: Coronavirus Test Green County Not Detected
[2020-12-11] MEDS: acetaminophen 325 mg Tablet 650 MG PO (21:31)
[2020-12-11] MEDS: nicotine 21 mg Patch 1 PATCH TRANSDERMA (21:31)
[2020-12-11] MEDS: mirtazapine 15 mg Tablet PO (21:31)
[2020-12-12] VITALS (12 sets, daily range): BP systolic 91–107; BP diastolic 48–72; PULSE 84–116; RESP 13–20; TEMP 36.3–36.8; O2SAT 90–93
[2020-12-12] MEDS: apixaban 5 mg Tablet PO ×2 (08:20→16:30)
[2020-12-12] MEDS: cefTRIAXone 1,000 MG in sodium chloride 0.9% (plus) 50 ML 100 MG IV (08:21)
[2020-12-12] MEDS: azithromycin 250 mg Tablet 500 MG PO (08:21)
[2020-12-12] MEDS: clopidogrel 75 mg Tablet PO (08:21)
[2020-12-12] MEDS: albuterol 8 gm MDI 2 PUFF INHALATION (08:37)
[2020-12-12] MEDS: morphine 4 mg/mL SDV 1 mL 2 MG IVP ×3 (10:48→13:35)
--- NOTE | 2020-12-12 15:04 | PC.CHAP ---
Pastoral Care Encounter/Spiritual Assessment Type of Contact [] Declined adult health clinical nurse specialist visit [] Patient/Family/Request visit [] Outpatient visit [xx] Follow-up visit [] Physician referral [] Code/Alert [xx] Routine visit [] Staff referral [] Actively dying [] Patient sleeping [] Family support [] [] Out of room [] Palliative care [] [] Receiving care in room [] Pre-surgical visit [] Trauma [] Long length of stay [] ICU visit [] Other: Relational/Emotional Strength [xx] Patient feels connected with others/family/visitors/staff [] Distress [] Loneliness/isolation [] Abandonment Spirituality of Patient [xx] Person of Meagan [] Attends Muslim of their Meagan [xx] Believes in Prayer [xx] Reads Bible or Latter Day materials [] There are Spiritual issues to be addressed Inspector Line Interventions [xx] Prayer [xx] Active listening [xx] Non-anxious presence [] Spiritual/emotional support [] Crisis/trauma care [] Spiritual counseling [] Bereavement support [] Provided bereavement packet [xx] Provided Bible/devotional materials [] Provided toy/stuffed animal, coloring book to patient or family member [] Provided Communion [] Anointing/Secretary [] Salvation [xx] Completed spiritual assessment [] Other: Impact on Illness or Injury [] Angry [] Fearful [] Anxious [] Often cries [] Exhaustion [] Unable to work [] Unable to attend yazdanism [] Unable to walk/stand [] Unable to read [] Unable to drive [] Unable to eat/drink [] Unable to sleep [] Unable to be with family [] Patient intubated [] Other: Summary Spouse was present and did most of the talking. He stated he needs to re-arrange living room to accommodate a hospital bed for patient but is concerned about doing so by himself because he has 3 broken ribs that are painful. Patient is bedfast and in constant pain but does not want to go to [facility]. Spouse wants her home also as long as he can care for her and get home health aid as often as possible. Time spent with patient 10 minutes
--- NOTE | 2020-12-12 15:06 | PM.PN ---
Subjective Subjective: Interval history: Patient was not able to leave hospital yesterday because does not want to use same hospice company. regional construction manager worked diligently to get her evaluated by another company however because of poor home conditions, it will be a great challenge. is not able to take care of him. A friend is willing to help her out for short period of time. Apparently she has more than 10 dogs in her home and house was covered with animal and human feces, patient herself had clothing soiled with feces at home regional construction manager spent a great deal of time with the family yesterday to devise a safe discharge plan Patient is complaining of right leg pain has ischemic ulcers does not want to pursue any surgical intervention and asking for opioids Vitals/I&O/Wt Last Vital Signs Temp 97.4 F L 12/12/20 12:00 Pulse 97 12/12/20 12:00 Resp 16 12/12/20 12:33 BP 100/59 12/12/20 12:00 Pulse Ox 91 12/12/20 12:00 12/12/20 12/12/20 12/12/20 06:59 14:59 22:59 Intake Total 450 / 450 Balance 450 / 450 Weight last 48 hrs Weight 30.022 kg Physical Exam Narrative: EXAM NARRATIVE: Extremely malnourished cachectic female Currently on 3 L nasal cannula Awake and alert Complaining of leg pain Right lower extremity arterial ulcers with nonpalpable dorsalis pedis Cyanosis of fingers noted Diminished airflow bilaterally S1, S2 Patient appears in distress Data : 12/11/20 05:09 12/11/20 05:09 Micro: Microbiology 12/10/20 12:00 Blood Culture - Preliminary Blood NEGATIVE TO DATE 12/10/20 12:08 Blood Culture - Preliminary Blood NEGATIVE TO DATE A&P Assessment and plan (1) Sepsis: Status: Acute (2) Malnourished: Status: Acute (3) Acute on chronic respiratory failure with hypoxia: Status: Acute (4) Community acquired pneumonia: Status: Acute (5) Metastatic primary lung cancer: Status: Acute (6) Mass of lung: Status: Acute Additional A&P Information Sepsis secondary to community-acquired pneumonia Patient is willing to try antibiotics in order to make her breathing better and comfortable Discontinue IV antibiotics, will de-escalate to p.o. azithromycin DuoNeb every 4 as needed Malnourished Advance diet to GI soft, will add supplemental calories with Ensure Acute on chronic hypoxic respiratory failure Metastatic primary lung cancer Secondary to underlying lung cancer and pneumonia She just quit 1 week ago Patient is stating that in case of further decline in her health she would opt for comfort care but for now okay with antibiotics and supportive management DNR/DNI Right leg pain severe peripheral arterial disease Patient does not want surgical intervention, she knows the risks of not getting surgery such as gangrene, septic shock, amputation, including demise. With her underlying pulmonary pathology any kind of intervention will be considered high risk. Pt Agreeable for management with opioids DNR/DNI GI soft diet is trying to get his home conditioned and clean so they can get hospital bed on Tuesday prognosis: Weeks to months Attestations Medical Necessity Statement*: Patient will be discharged on Tuesday Time Spent in Patient Care: 16 - 35 minutes Coding Level of Care Code Acute Folded Towel Machine Operator for Ellieg Fwd Diagnoses Sepsis A41.9 Malnourished E46 Acute on chronic respiratory failure with hypoxia J96.21 Community acquired pneumonia J18.9 Metastatic primary lung cancer C34.90 Mass of lung R91.8
--- NOTE | 2020-12-12 18:07 | PC.RESP ---
SMOKING CESSATION AND PULMONARY REHAB INFORMATION SENT TO PATIENT.
[2020-12-12] MEDS: HYDROmorphone 1 mg/mL INJ 1 mL IVP (20:42)
[2020-12-12] MEDS: mirtazapine 15 mg Tablet PO (20:43)
[2020-12-12] MEDS: nicotine 21 mg Patch 1 PATCH TRANSDERMA (20:43)
[2020-12-13] VITALS (8 sets, daily range): BP systolic 83–105; BP diastolic 50–65; PULSE 55–105; RESP 15–18; TEMP 36.3–36.6; O2SAT 82–97
[2020-12-13 07:32] LABS: Basophils % 0.2 %; Eosinophils % 0.3 %; Hemoglobin 15.7 g/dL (11.5-15.3); Lymphocytes # 0.5 10^3/uL (0.8-4.8); Lymphocytes % 5.7 %; Mean Corpuscular Volume 90.6 fl (81-99); Mean Platelet Volume 12.3 fL (7.4-10.4); Monocytes # 0.4 10^3/uL (0.2-0.9); Neutrophils # 7.62 10^3/uL (1.8-7.7); Neutrophils % 87.3 %; Nucleated Red Blood Cells % 0 %; Platelet Count 56 10^3/cmm (130-400); Red Blood Count 5.41 10^6/uL (4.1-5.3); Red Cell Distribution Width 18.6 % (12.1-15.1); White Blood Count 8.7 10^3/uL (4.0-10.0)
[2020-12-13] MEDS: albuterol 8 gm MDI 2 PUFF INHALATION (08:05)
[2020-12-13] MEDS: acetaminophen 325 mg Tablet 650 MG PO (09:58)
[2020-12-13] MEDS: apixaban 5 mg Tablet PO (09:58)
[2020-12-13] MEDS: azithromycin 250 mg Tablet 500 MG PO (09:58)
[2020-12-13] MEDS: clopidogrel 75 mg Tablet PO (09:58)
--- NOTE | 2020-12-13 11:06 | PC.SOCIAL ---
IMM Update: pg 2 of IMM updated w/ patient and copy provided.
[2020-12-13 14:41] LABS: Anion Gap 11.4 (5-19); Blood Urea Nitrogen 16 mg/dL (8-23); Calcium 8.2 mg/dL (8.5-10.5); Carbon Dioxide 32 mmol/L (22-29); Chloride 103 mmol/L (98-107); Glomerular Filtration Rate 219.9 mL/min (90-130); Glucose 119 mg/dL (65-115); Osmolality Calculated 298 mOsm/kg (285-295); Potassium 3.4 mmol/L (3.5-5.1); Sodium 143 mmol/L (136-145)
[2020-12-13] MEDS: morphine 10 mg/0.5 mL oral liq UD SUBLINGUAL ×2 (16:44→23:51)
--- NOTE | 2020-12-13 17:31 | P.PN_ITS ---
Subjective Subjective: Interval history: I did discuss goals of care with the patient in front of her , both agreed with initiation of comfort measures in the hospital I will go ahead and start oral liquid morphine, Ativan We will keep her on oxygen is planning to get his home conditioned in order to get hospice bed on Tuesday Vitals/I&O/Wt Last Vital Signs Temp 97.9 F 12/13/20 15:32 Pulse 98 12/13/20 15:32 Resp 18 12/13/20 15:32 BP 99/62 12/13/20 15:32 Pulse Ox 96 12/13/20 15:32 12/13/20 12/13/20 12/13/20 06:59 14:59 22:59 Intake Total 120 / 810 Balance 120 / 810 Physical Exam Narrative: EXAM NARRATIVE: Extremely malnourished and cachectic female who is comfortable in the bed however not complaining of active chest pain or shortness of breath currently she is on 5 L nasal cannula at the bedside Bilateral diminished breath sounds with rhonchi Soft flat abdomen Emaciated Right leg with ischemic ulcers and cyanosis Awake alert oriented x3 GCS 15 no neurological deficits, she is coherent and able to understand my concerns and questions appropriately Data : 12/13/20 06:33 12/13/20 13:20 A&P Assessment and plan (1) Sepsis: Status: Acute (2) Malnourished: Status: Acute (3) Acute on chronic respiratory failure with hypoxia: Status: Acute (4) Community acquired pneumonia: Status: Acute (5) Metastatic primary lung cancer: Status: Acute (6) Mass of lung: Status: Acute (7) Comfort measures only status: Status: Acute Additional A&P Information Patient and her both decided to pursue comfort measures, I will keep her on oxygen, liquid morphine and Ativan Patient does not want Eliquis or antibiotics Nurse updated is planning to get his home condition in order to get hospital hospice bed on Tuesday Attestations Medical Necessity Statement*: Will discharge on Tuesday Time Spent in Patient Care: 16 - 35 minutes Coding Level of Care Code Acute Natural Resources Instructor for Amy Fwd Diagnoses Sepsis A41.9 Malnourished E46 Acute on chronic respiratory failure with hypoxia J96.21 Community acquired pneumonia J18.9 Metastatic primary lung cancer C34.90 Mass of lung R91.8 Comfort measures only status Z51.5
--- NOTE | 2020-12-13 19:10 | PC.NURSE ---
PT LOST IV ACCESS TODAY. DOCTOR NOTIFIED. OKAY TO LEAVE OUT PER MD. WE WILL USE PO AND SUBLINGUAL MEDICATIONS TO HELP KEEP PT COMFORTABLE.
[2020-12-13] MEDS: nicotine 21 mg Patch 1 PATCH TRANSDERMA (23:51)
[2020-12-13] MEDS: mirtazapine 15 mg Tablet PO (23:52)
[2020-12-14] VITALS (8 sets, daily range): BP systolic 77–106; BP diastolic 52–60; PULSE 87–101; RESP 17–36; TEMP 36.5–36.6; O2SAT 77–96
[2020-12-14] MEDS: morphine 10 mg/0.5 mL oral liq UD SUBLINGUAL ×5 (02:08→16:46)
[2020-12-14] MEDS: LORazepam 2 mg/mL INJ 1 mL IM ×2 (04:23→16:01)
--- NOTE | 2020-12-14 09:17 | PC.NURSE ---
Patient moaning with movement favoring left side, repositioned with pillows, morphine given for pain see MAR for further details.
--- NOTE | 2020-12-14 10:07 | PC.NURSE ---
Addendum entered by Noreen Maldonado RN 12/14/20 15:46: Dr. Rivers in to see patient. Reports to this nurse to give pain medication now. Patient pre-medicated with morphine for dressing changes to be completed to sacrum and upper back, patient moans with nurses touch or movement, see MAR for further details. Original Note: Patient pre-medicated with morphine for dressing changes to be completed to sacrum and upper back, patient moans with nurses touch or movement, see MAR for further details.
--- NOTE | 2020-12-14 12:06 | PM.PN ---
Subjective Subjective: Interval history: Patient not responsive labored breathing getting morphine Vitals/I&O/Wt Last Vital Signs Temp 97.8 F 12/14/20 03:50 Pulse 87 12/14/20 10:09 Resp 28 H 12/14/20 10:09 BP 98/60 12/14/20 07:56 Pulse Ox 84 L 12/14/20 10:09 12/13/20 12/14/20 12/14/20 22:59 06:59 14:59 Intake Total 120 / 120 Balance 120 / 120 Physical Exam Narrative: EXAM NARRATIVE: Nonresponsive patient labored breathing Not able to reciprocate Currently on 5 L nasal cannula Diminished bilateral breath sounds No meaningful movement of her extremities Does not open her eyes to verbal command Data : 12/13/20 06:33 12/13/20 13:20 A&P Assessment and plan (1) Comfort measures only status: Hospice/comfort measure: Patient is getting liquid Roxanol and Ativan, she does have labored breathing, will touch base with her if he would allow us to remove her oxygen Status: Acute Attestations Medical Necessity Statement*: Currently on comfort care Time Spent in Patient Care: less than 15 minutes Coding Level of Care Code Acute Extrusion Machine Operator for Chg Fwd Diagnoses Comfort measures only status Z51.5
--- NOTE | 2020-12-14 12:48 | PC.NURSE ---
Patients spouse called to check on patient, this nurse explained patient in pain and requiring morphine and breathing is labored with increased respirations, Tone reports he will come see patient today. Dr. Rivers notified and will notify physician when spouse is at bedside for physician update.
--- NOTE | 2020-12-14 16:48 | PC.NURSE ---
Patient voided, cleaned and repositioned in bed, patient unable to resting, spouse at bedside requests further pain medication, morphine given per doctors orders, see MAR for further details.
[2020-12-14] MEDS: nicotine 21 mg Patch 1 PATCH TRANSDERMA (21:28)
[2020-12-15 04:00] VITALS: BP 100/63; PULSE 105; RESP 36; O2SAT 90
[2020-12-15] MEDS: morphine 10 mg/0.5 mL oral liq UD SUBLINGUAL ×9 (04:21→23:49)
[2020-12-15] MEDS: LORazepam 2 mg/mL INJ 1 mL IM (05:24)
[2020-12-15 07:49] VITALS: BP 91/50; RESP 22
--- NOTE | 2020-12-15 09:13 | PC.CHAP ---
Pastoral Care Encounter/Spiritual Assessment Type of Contact [] Declined junior qa analyst visit [] Patient/Family/Request visit [] Outpatient visit [] Follow-up visit [] Physician referral [] Code/Alert [X] Routine visit [] Staff referral [] Actively dying [] Patient sleeping [] Family support [] [] Out of room [] Palliative care [] [] Receiving care in room [] Pre-surgical visit [] Trauma [] Long length of stay [] ICU visit [] Other: Relational/Emotional Strength [X] Patient feels connected with others/family/visitors/staff [] Distress [] Loneliness/isolation [] Abandonment Spirituality of Patient [X] Person of Meagan [] Attends Episcopalian of their Meagan [] Believes in Prayer [] Reads Bible or Denominational materials [] There are Spiritual issues to be addressed Notching Press Operator Interventions [X] Prayer [] Active listening [] Non-anxious presence [] Spiritual/emotional support [] Crisis/trauma care [] Spiritual counseling [] Bereavement support [] Provided bereavement packet [] Provided Bible/devotional materials [] Provided toy/stuffed animal, coloring book to patient or family member [] Provided Communion [] Anointing/[place] [] Salvation [X] Completed spiritual assessment [] Other: Impact on Illness or Injury [] Angry [] Fearful [] Anxious [] Often cries [] Exhaustion [] Unable to work [] Unable to attend sabianist [] Unable to walk/stand [] Unable to read [] Unable to drive [] Unable to eat/drink [] Unable to sleep [] Unable to be with family [] Patient intubated [] Other: Summary patient very week Time spent with patient 10 min
[2020-12-15] MEDS: LORazepam 2 mg/mL INJ 1 mL SUBLINGUAL ×4 (11:54→22:58)
[2020-12-15 12:00] VITALS: BP 73/48; PULSE 122; RESP 16; TEMP 36.3; O2SAT 77
--- NOTE | 2020-12-15 13:06 | P.DS_ITS ---
Discharge Providers Date of Admission: 12/10/20 13:34 Date of Discharge: December 15, 2020 Attending Provider at Admission: Jennifer Rivers MD Attending Provider at Discharge: Jennifer Rivers MD Primary Care Provider: Christina Alexander MD Diagnoses at Discharge Discharge Diagnosis (1) Comfort measures only status: Status: Acute Reason for Visit Reason for Visit: SOB, LUNG CA Hospital Course Hospital Course History of Present Illness Sue Edwards is a 69 year old female who has advanced COPD multiple lung masses presented today for worsening shortness of breath. As per the PCP arranged home hospice for her because of her worsening shortness of breath cachexia malnourishment and declining quality of life. Today hospice nurse arrived and took her vitals and called 911. Her O2 saturation was in 60s. As per the she did have oxygen tank at home but she refused to use the oxygen tank she kept smoking. No recent fever, nausea, vomiting. She has not eaten in the last few weeks. Her quality of life is deteriorating she is losing weight excessively. Diagnostics in the ER revealed worsening of pulmonary masses no active consolidation, she was put on BiPAP because of increased work of breathing which would explain her high lactic acid she was given Levaquin in the ER I will give her septic bolus of 1 L, she meets criteria of sepsis with tachypnea and tachycardia, Patient does not want chest compressions or intubation I did confirm with as well who is in agreement, Versed therapist and ER nurse witnessed goals of care discussion as well Initially she stated that she is full code but changed her mind at the time of my evaluation, for now she is okay with antibiotics and BiPAP but would opt for home hospice in case further decline Hospital course Patient was admitted for management of acute on chronic hypoxic respiratory failure she was requiring BiPAP in the ER however next day patient was saturating well on room air, I requested home O2 evaluation. Patient is requesting to be discharged home as she already has home hospice service set up. annual campaign manager is diligently working to get in touch with the home hospice service company. She is fine to get in touch with the PCP office. I will give her liquid morphine as well. Patient was instructed not to smoke use oxygen for her symptoms relief. Her CT scan did not show active consolidation she did require antibiotics in the ER, she remained afebrile, no leukocytosis. Cultures negative to date. She will be discharged on azithromycin. Cold right lower extremity, she is not a surgical candidate because of severe end-stage COPD, patient does not want aggressive intervention, she was counseled that if she keeps smoking she might lose her right leg as well. notified and updated. Previous discharge order was canceled because hospice company did not accept her 12/15 hospice care/comfort care initiated in the hospital and on 12/15 requested that if we could keep her in the hospital as she did not get accepted from any hospice company and there is no hospital bed available at home for now and he lives alone and there is no one else to help him out. I have updated my nurse to keep her here overnight and continue hospice care Physical Exam Narrative: EXAM NARRATIVE: Nonresponsive patient labored breathing Not able to reciprocate Currently on room air saturating 70% Diminished bilateral breath sounds No meaningful movement of her extremities Does not open her eyes to verbal command Discharge Data Data Completed and Pending: Completed Studies During Hospitalization Category Date Time Status CT angio chest PE protcl [id number] Stat Cat Scan 12/10/20 12:42 Completed XR chest 1V yuliya ble [id number] Stat Exams 12/10/20 11:57 Completed Vitals: Last Vital Signs Temp 97.7 F 12/14/20 19:46 Pulse 105 H 12/15/20 04:00 Resp 22 H 12/15/20 07:49 BP 91/50 12/15/20 07:49 Pulse Ox 90 12/15/20 04:00 Discharge Plan Discharge Patient Disposition: Hospice - Home Condition: Stable Prescriptions: New morphine 10 mg/5 mL solution 10 mg PO Q1H PRN (Reason: dyspnea) Qty: 100 RF: 0 lorazepam 2 mg/mL concentrate 2 mg buccal Q2H PRN (Reason: air hunger) Qty: 30 RF: 0 Continued Plavix 75 mg tablet 75 mg PO DAILY RF: 0 Discontinued budesonide-formoterol [Symbicort] 160-4.5 mcg/actuation HFA aerosol inhaler 2 puff inhalation BID 30 Days Qty: 10.2 RF: 2 morphine concentrate 100 mg/5 mL (20 mg/mL) solution 25 - 100 mg PO Q2H PRN (Reason: Pain) RF: 0 simvastatin 20 mg tablet 20 mg PO BEDTIME RF: 0 nicotine 21 mg/24 hr patch 24 hour 21 mg transdermal Q24H RF: 0 mirtazapine 15 mg tablet 15 mg PO BEDTIME RF: 0 lorazepam 2 mg/mL concentrate 1 - 2 mg PO Q4H PRN (Reason: Anxiety) RF: 0 nicotine (polacrilex) 4 mg lozenge 4 mg PO Q2H PRN (Reason: UNKNOWN) RF: 0 Eliquis 5 mg tablet 5 mg PO BID RF: 0 Incruse Ellipta 62.5 mcg/actuation blister with device 1 inh INHALATION DAILY RF: 0 albuterol sulfate 90 mcg/actuation aero powdr breath act w/sensor 2 inh inhalation Q4H PRN (Reason: shortness of breath) Qty: 1 RF: 0 omeprazole magnesium [Prilosec OTC] 20 mg Tablet,Delayed Release (Dr/Ec) 20 mg PO DAILY PRN (Reason: Heartburn) RF: 0 Discharge Orders: Discharge Order (Routine); Ordered 12/15/20 Ordered By: Jennifer Rivers Referrals: Christina Alexander MD [Primary Care Provider] - 12/25/20 11:00 am Discharge Diet: As Directed Discharge Activity: Bedrest and Return to work/school after cleared by PCP/Specialist Patient Instructions: Lorazepam (By mouth), Morphine, Rapid Release (By mouth), Hospice Care (GEN) Activity Restrictions/Additional Instructions: You can use liquid morphine every hour 5 mg to 10 mg Discharge Attestations Time Spent in Discharge Care*: less than 30 min Quality Metrics Clinical Quality Measures During this hospital stay, did patient experience: None Coding Level of Care Code Acute Chg FW DC note Diagnoses Comfort measures only status Z51.5
[2020-12-15 16:00] VITALS: BP 70/48; PULSE 113; RESP 16; TEMP 36.7; O2SAT 80
--- NOTE | 2020-12-15 16:19 | PC.SOCIAL ---
IMM update: pg 2 of IMM updated w/ spouse Wilder. Patient has transitioned to comfort care.
--- NOTE | 2020-12-15 17:46 | PC.RESP ---
RT Shift Note Frequent safety and respiratory rounds continue. Orders completed as indicated. Patient monitored pre and post treatments throughout shift. Patient did tolerate treatments appropriately. Condition did not change. Patient and/or entry level marketing representative educated on respiratory treatment and medications. Patient and/or entry level marketing representative verbalized understanding. Will continue to monitor patient progress.
[2020-12-15 20:00] VITALS: BP 78/49; PULSE 129; RESP 16; TEMP 36.4; O2SAT 76
--- NOTE | 2020-12-15 22:45 | PC.NURSE ---
i reported high pulse to nurse 129
[2020-12-16] MEDS: morphine 10 mg/0.5 mL oral liq UD SUBLINGUAL ×7 (00:43→06:38)
[2020-12-16] MEDS: LORazepam 2 mg/mL INJ 1 mL SUBLINGUAL ×2 (02:06→04:53)
--- NOTE | 2020-12-16 07:55 | PC.NURSE ---
Patient at 0729 this AM. Verified by Nadeen RUEDA and Kerry Higuera RN. [facility] was called. Left message for to return call to Med/Surg. Spoke with Dr. Rivers, he was on the phone with patients and doctor was going to notify him of .
--- NOTE | 2020-12-16 10:35 | P.DES_ITS ---
Discharge Providers DDS Date of Admission: 12/10/20 13:34 Date Summary Completed: 12/16/20 Attending Provider at Admission: Jennifer Rivers MD Attending Provider at Discharge: Jennifer Rivers MD Primary Care Provider: Christina Alexander MD DS Diagnoses Hospital Diagnoses (1) Comfort measures only status: Reason for Visit Reason for Visit: SOB, LUNG CA Summary Summary Summary: History of Present Illness Sue Edwards is a 69 year old female who has advanced COPD multiple lung masses presented today for worsening shortness of breath. As per the PCP arranged home hospice for her because of her worsening shortness of breath cachexia malnourishment and declining quality of life. Today hospice nurse arrived and took her vitals and called 911. Her O2 saturation was in 60s. As per the she did have oxygen tank at home but she refused to use the oxygen tank she kept smoking. No recent fever, nausea, vomiting. She has not eaten in the last few weeks. Her quality of life is deteriorating she is losing weight excessively. Diagnostics in the ER revealed worsening of pulmonary masses no active consolidation, she was put on BiPAP because of increased work of breathing which would explain her high lactic acid she was given Levaquin in the ER I will give her septic bolus of 1 L, she meets criteria of sepsis with tachypnea and tachycardia, Patient does not want chest compressions or intubation I did confirm with as well who is in agreement, Versed therapist and ER nurse witnessed goals of care discussion as well Initially she stated that she is full code but changed her mind at the time of my evaluation, for now she is okay with antibiotics and BiPAP but would opt for home hospice in case further decline Hospital course Patient was admitted for management of acute on chronic hypoxic respiratory failure she was requiring BiPAP in the ER however next day patient was saturating well on room air, I requested home O2 evaluation. Patient is requesting to be discharged home as she already has home hospice service set up. manager multicultural is diligently working to get in touch with the home hospice service company. She is fine to get in touch with the PCP office. I will give her liquid morphine as well. Patient was instructed not to smoke use oxygen for her symptoms relief. Her CT scan did not show active consolidation she did require antibiotics in the ER, she remained afebrile, no leukocytosis. Cultures negative to date. She will be discharged on azithromycin. Cold right lower extremity, she is not a surgical candidate because of severe end-stage COPD, patient does not want aggressive intervention, she was counseled that if she keeps smoking she might lose her right leg as well. notified and updated. Previous discharge order was canceled because hospice company did not accept her 12/15 hospice care/comfort care initiated in the hospital and on 12/15 requested that if we could keep her in the hospital as she did not get accepted from any hospice company and there is no hospital bed available at home for now and he lives alone and there is no one else to help him out. I have updated my nurse to keep her here overnight and continue hospice care 12/16: Patient at 7:29 AM, notified, Additional Data Confirmation of as documented by pronouncing clinician: no pulse, no respirations, no heart sounds and pupils fixed and dilated Family: contacted Additional persons at bedside: nursing staff Attending/PCP notified?: I am attending Was code activated?: No Autopsy requested?: No Advance directives?: No Hospice patient?: Yes Discharge Plan Discharge Patient Disposition: Hospice - Home Condition: Stable Prescriptions: New morphine 10 mg/5 mL solution 10 mg PO Q1H PRN (Reason: dyspnea) Qty: 100 RF: 0 lorazepam 2 mg/mL concentrate 2 mg buccal Q2H PRN (Reason: air hunger) Qty: 30 RF: 0 Continued Plavix 75 mg tablet 75 mg PO DAILY RF: 0 Discontinued budesonide-formoterol [Symbicort] 160-4.5 mcg/actuation HFA aerosol inhaler 2 puff inhalation BID 30 Days Qty: 10.2 RF: 2 morphine concentrate 100 mg/5 mL (20 mg/mL) solution 25 - 100 mg PO Q2H PRN (Reason: Pain) RF: 0 simvastatin 20 mg tablet 20 mg PO BEDTIME RF: 0 nicotine 21 mg/24 hr patch 24 hour 21 mg transdermal Q24H RF: 0 mirtazapine 15 mg tablet 15 mg PO BEDTIME RF: 0 lorazepam 2 mg/mL concentrate 1 - 2 mg PO Q4H PRN (Reason: Anxiety) RF: 0 nicotine (polacrilex) 4 mg lozenge 4 mg PO Q2H PRN (Reason: UNKNOWN) RF: 0 Eliquis 5 mg tablet 5 mg PO BID RF: 0 Incruse Ellipta 62.5 mcg/actuation blister with device 1 inh INHALATION DAILY RF: 0 albuterol sulfate 90 mcg/actuation aero powdr breath act w/sensor 2 inh inhalation Q4H PRN (Reason: shortness of breath) Qty: 1 RF: 0 omeprazole magnesium [Prilosec OTC] 20 mg Tablet,Delayed Release (Dr/Ec) 20 mg PO DAILY PRN (Reason: Heartburn) RF: 0 Discharge Orders: Discharge Order (Routine); Ordered 12/15/20 Ordered By: Jennifer Rivers Referrals: Christina Alexander MD [Primary Care Provider] - 12/25/20 11:00 am Discharge Diet: As Directed Discharge Activity: Bedrest and Return to work/school after cleared by PCP/Specialist Patient Instructions: Lorazepam (By mouth), Morphine, Rapid Release (By mouth), Hospice Care (GEN) Activity Restrictions/Additional Instructions: You can use liquid morphine every hour 5 mg to 10 mg DS Attestations Time Spent in /Discharge Care*: less than 30 min Quality - AMI: AMI present?: No Quality - Stroke: CVA present?: No Symptom Onset Unknown: No Quality - VTE: VTE present?: No Deep Vein Thrombosis/Pulmonary Embolism Present on Admission: No Coding Level of Care Code Acute Imcu Specialist for Chg Fwd Diagnoses Comfort measures only status Z51.5
--- NOTE | 2020-12-16 11:53 | PC.NURSE ---
Body released to home.
== END 2020-12-16 11:56 | disposition expired | DRG 871 ==
LOC: ER 15:46 → ER IP 17:57 → MEDSURG 18:27
PROVIDERS: Admitting Provider Internal Medicine; Emergency Provider Family Medicine; PCP Family Medicine; Visit Provider Internal Medicine
DX: A41.9 Sepsis, unspecified organism (principal); J96.21 Acute and chronic respiratory failure with hypoxia; J18.9 Pneumonia, unspecified organism; E87.2 Acidosis; E46 Unspecified protein-calorie malnutrition; Z68.1 Body mass index [BMI] 19.9 or less, adult; C34.90 Malignant neoplasm of unspecified part of unspecified bronchus or lung; J44.0 Chronic obstructive pulmonary disease with (acute) lower respiratory infection; Z51.5 Encounter for palliative care; I73.9 Peripheral vascular disease, unspecified; K21.9 Gastro-esophageal reflux disease without esophagitis; M19.90 Unspecified osteoarthritis, unspecified site; M81.0 Age-related osteoporosis without current pathological fracture; F17.210 Nicotine dependence, cigarettes, uncomplicated; Z66 Do not resuscitate; G89.29 Other chronic pain; Z20.822 Contact with and (suspected) exposure to COVID-19; Z90.49 Acquired absence of other specified parts of digestive tract; Z82.49 Family history of ischemic heart disease and other diseases of the circulatory system; Z96.652 Presence of left artificial knee joint; Z71.6 Tobacco abuse counseling
CPT/HCPCS: 36415; 36600; 71045; 71275; 80048; 80051; 80053; 82330; 82550; 82805; 83605; 84145; 84484; 85025; 87040; 87426; 87635; 93005; 94640; 94660; 96365; 96372; 96375; 99291; J0696; J1170; J1956; J2060; J2270; J2930; J3535; J7030; Q0144; Q9967